=== PATIENT | female | born 1940 | race Caucasian/White ===

== ENCOUNTER → 2017-07-17 10:15 | Outpatient (CLI) | payer MEDICARE, SELFPAY ==
[2017-07-17 10:37] LABS: Basophils # 0.1 K/mm3 (0-0.2); Basophils % 0.6 % (0.1-2.0); Eosinophils # 0.4 K/mm3 (0.0-0.4); Eosinophils % 4.1 % (0.1-12.0); Hematocrit 40.8 % (37.0-47.0); Hemoglobin 13.2 g/dL (12.2-16.2); Lymphocytes # 2.1 K/mm3 (0.7-4.5); Lymphocytes % 24.1 K/mm3 (10-50); Mean Corpuscular HGB Conc 32.3 g/dL (31.8-35.4); Mean Corpuscular Hemoglobin 29.3 pg (27.0-31.2); Mean Corpuscular Volume 90.7 fl (81-99); Mean Platelet Volume 7.2 fl (7.4-10.4); Monocytes # 0.7 K/mm3 (0.1-1.0); Monocytes % 8.1 % (1.7-9.3); Neutrophils # 5.6 K/mm3 (1.8-7.8); Neutrophils % 63.1 % (37.0-80.0); Platelet Count 343 K/mm3 (142-424); Red Cell Distribution Width 14.2 % (11.5-17.5); White Blood Count 8.9 K/mm3 (4.8-10.8)
[2017-07-17 13:15] LABS: Alanine Aminotransferase 22 U/L (12-78); Albumin Level 3.9 gm/dL (3.4-5.0); Albumin/Globulin Ratio 1.4 (1.1-1.8); Alkaline Phosphatase 110 U/L (46-116); Anion Gap 9.3 mEq/L (5-15); Aspartate Amino Transferase 9 U/L (15-37); Bilirubin,Total 0.5 mg/dL (0.2-1.0); Blood Urea Nitrogen 16 mg/dL (7-18); Calcium 8.8 mg/dL (8.5-10.1); Carbon Dioxide 31 mmol/L (21.0-32.0); Chloride 101 mmol/L (98-107); Estimated Glomerular Filt Rate 69 ml/min (>60); GFR (African American) 84 ML/MIN (>60); Globulin 2.8 gm/dl (1.3-3.2); Glucose 80 mg/dL (74-106); Potassium 4.3 mmoL/L (3.5-5.1); Sodium 137 mmol/L (136-145); Total Protein,Serum 6.7 gm/dL (6.4-8.2)
--- NOTE | 2017-07-23 13:45 | SW/DCPLANNER ---
Follow up phone call 07/22/17 PINKY: Patient stated that she is stressed about rashes all over her back and arms. MD has diagnosed patient with a specific type of rash (patient could not recall name at time of phone call) and encouraged patient to take Benadryl and use Benadryl cream on rashes. Patient states that she does not have any needs for any further resources at this time. Date of visit: 07/22/17
== END ==
PROVIDERS: Visit Provider Internal Medicine
DX: C85.93 Non-Hodgkin lymphoma, unspecified, intra-abdominal lymph nodes (principal)
CPT/HCPCS: 36415; 80053; 85025

== ENCOUNTER → 2017-10-14 08:40 | Outpatient (CLI) | payer MEDICARE, SELFPAY ==
[2017-10-14 09:32] LABS: Basophils % 0.8 % (0.1-2.0); Eosinophils # 0.6 K/mm3 (0.0-0.4); Eosinophils % 11.8 % (0.1-12.0); Hematocrit 36.6 % (37.0-47.0); Hemoglobin 12.4 g/dL (12.2-16.2); Lymphocytes # 1.2 K/mm3 (0.7-4.5); Lymphocytes % 25.1 K/mm3 (10-50); Mean Corpuscular HGB Conc 33.8 g/dL (31.8-35.4); Mean Corpuscular Hemoglobin 30.1 pg (27.0-31.2); Mean Corpuscular Volume 88.9 fl (81-99); Mean Platelet Volume 7.3 fl (7.4-10.4); Monocytes # 0.5 K/mm3 (0.1-1.0); Monocytes % 9.4 % (1.7-9.3); Neutrophils # 2.6 K/mm3 (1.8-7.8); Neutrophils % 52.7 % (37.0-80.0); Platelet Count 283 K/mm3 (142-424); Red Blood Count 4.12 M/mm3 (4.20-5.40); Red Cell Distribution Width 14.1 % (11.5-17.5); White Blood Count 4.9 K/mm3 (4.8-10.8)
[2017-10-14 11:48] LABS: Alanine Aminotransferase 21 U/L (12-78); Albumin Level 3.5 gm/dL (3.4-5.0); Albumin/Globulin Ratio 1.4 (1.1-1.8); Alkaline Phosphatase 96 U/L (46-116); Anion Gap 12.6 mEq/L (5-15); Aspartate Amino Transferase 17 U/L (15-37); Bilirubin,Total 0.7 mg/dL (0.2-1.0); Blood Urea Nitrogen 11 mg/dL (7-18); Calcium 9.1 mg/dL (8.5-10.1); Carbon Dioxide 27 mmol/L (21.0-32.0); Chloride 103 mmol/L (98-107); Creatinine,Serum 0.72 mg/dL (0.55-1.02); Estimated Glomerular Filt Rate 78 ml/min (>60); GFR (African American) 95 ML/MIN (>60); Globulin 2.5 gm/dl (1.3-3.2); Glucose 89 mg/dL (74-106); Potassium 4.6 mmoL/L (3.5-5.1); Sodium 138 mmol/L (136-145)
== END ==
PROVIDERS: Visit Provider Internal Medicine
DX: Z79.899 Other long term (current) drug therapy (principal); D23.9 Other benign neoplasm of skin, unspecified; C85.93 Non-Hodgkin lymphoma, unspecified, intra-abdominal lymph nodes
CPT/HCPCS: 36415; 80053; 85025

== ENCOUNTER → 2017-10-15 08:40 | Outpatient (CLI) | payer MEDICARE, SELFPAY ==
--- NOTE | 2017-10-15 08:47 | CT_ITS ---
CT abdomen pelvis w con CLINICAL INDICATION: Follow-up lymphoma ITS.REASON: LYMPHOMA ORDERING PHYSICIAN: Chalino Potter MD PATIENT AGE: 77 years COMPARISON: 01/13/2017 TECHNIQUE: Axial images obtained with sagittal and coronal reformats. All CT scans at the facility use one or more dose reduction, viz: automated exposure control; ma/kV adjustment per patient size (including targeted exams where dose is matched to indication; i.e. head); or iterative reconstruction technique. PROCEDURE: Oral Contrast: Redicat IV Contrast: 75 mL's of Isovue-370 performed in conjunction with the chest CT. FINDINGS: 18 mm isodensity once again noted in the central aspect of the liver and may represent a hepatic cyst not significantly changed. No other liver lesions are evident. The spleen, adrenal glands, and pancreas are unremarkable. Eccentric isodensity projects off the anterior aspect of the left kidney at 14 mm consistent with a renal cyst unchanged. No retroperitoneal or intraperitoneal adenopathy is evident. No intestinal obstruction or free air. No pelvic mass, abnormal fluid collection, or focal inflammatory change. There is sigmoid diverticulosis. There is some mild stranding of the pericolic fat at the junction of the descending and sigmoid colon. Has the patient had any recent episodes of diverticulitis?. There is some mild thickening of the the upper rectum. This is nonspecific and could be due to nondistention or proctitis. Neoplasm not entirely excluded. Degenerative changes are present at L4-L5 and there is moderate wedging of L1 vertebral body which is unchanged. No acute bony anomalies evident. IMPRESSION: 1. No evidence of adenopathy that would indicate recurrent lymphoma. 2. Minimal stranding of the pericolic fat the left lower quadrant which may be seen with colitis or diverticulitis. 3. There is mild mucosal thickening of the upper rectum. This is nonspecific and may be related to nondistention, colitis, or neoplasm.
--- NOTE | 2017-10-15 08:47 | CT_ITS ---
CT chest w con HISTORY: Follow-up lymphoma ITS.REASON: LYMPHOMA ORDERING PHYSICIAN: Chalino Potter MD PATIENT AGE: 77 years COMPARISON: 01/13/2017 TECHNIQUE: Axial images obtained following the administration of 75 mL of Isovue 370 . Sagittal, and coronal reformatted images are also generated and reviewed. All CT scans at the facility use one or more dose reduction, viz: automated exposure control; ma/kV adjustment per patient size (including targeted exams where dose is matched to indication; i.e. head); or iterative reconstruction technique. FINDINGS: No mediastinal or hilar adenopathy. No axillary adenopathy. No evidence of aortic aneurysm or dissection or central pulmonary embolus. There is a new noncalcified nodule in the right upper lobe posteriorly which measures 8 x 6 mm. In the posterior segment of the right upper lobe. A calcified granuloma is present in the right middle lobe. No other new noncalcified nodules are evident. No pleural effusions or infiltrates. There are degenerative changes in the thoracic spine. No bony destructive process evident. IMPRESSION: 1. No evidence of mediastinal, hilar, or axillary adenopathy. 2. Interval development of a 8 x 6 mm noncalcified nodule in the posterior segment of the right upper lobe. This nodule is nonspecific and could be postinflammatory/infectious or secondary to neoplasm such as a primary or metastatic lesion. This lesion is not amenable to percutaneous biopsy. PET/CT or short-term follow-up chest CT may be of further value
== END ==
PROVIDERS: Family Provider Family Medicine; PCP Nurse Practitioner Family; Visit Provider Internal Medicine
DX: C85.93 Non-Hodgkin lymphoma, unspecified, intra-abdominal lymph nodes (principal)
CPT/HCPCS: 71260; 74177; Q9967

== ENCOUNTER → 2017-12-30 13:14 | Outpatient (CLI) | payer MEDICARE, SELFPAY ==
[2017-12-30 14:10] LABS: Basophils % 0.7 % (0.1-2.0); Eosinophils # 0.2 K/mm3 (0.0-0.4); Eosinophils % 4.6 % (0.1-12.0); Hematocrit 38.1 % (37.0-47.0); Hemoglobin 12.4 g/dL (12.2-16.2); Lymphocytes # 1.2 K/mm3 (0.7-4.5); Lymphocytes % 23.5 K/mm3 (10-50); Mean Corpuscular HGB Conc 32.6 g/dL (31.8-35.4); Mean Corpuscular Hemoglobin 29.6 pg (27.0-31.2); Mean Corpuscular Volume 90.8 fl (81-99); Mean Platelet Volume 7.1 fl (7.4-10.4); Monocytes # 0.5 K/mm3 (0.1-1.0); Monocytes % 9.5 % (1.7-9.3); Neutrophils # 3.2 K/mm3 (1.8-7.8); Neutrophils % 61.7 % (37.0-80.0); Platelet Count 281 K/mm3 (142-424); Red Blood Count 4.19 M/mm3 (4.20-5.40); Red Cell Distribution Width 15.9 % (11.5-17.5); White Blood Count 5.1 K/mm3 (4.8-10.8)
[2017-12-30 15:47] LABS: Alanine Aminotransferase 20 U/L (12-78); Albumin Level 3.6 gm/dL (3.4-5.0); Albumin/Globulin Ratio 1.4 (1.1-1.8); Alkaline Phosphatase 102 U/L (46-116); Anion Gap 10.7 mEq/L (5-15); Aspartate Amino Transferase 10 U/L (15-37); Bilirubin,Total 0.5 mg/dL (0.2-1.0); Blood Urea Nitrogen 8 mg/dL (7-18); Calcium 8.6 mg/dL (8.5-10.1); Carbon Dioxide 30 mmol/L (21.0-32.0); Chloride 105 mmol/L (98-107); Creatinine,Serum 0.73 mg/dL (0.55-1.02); Estimated Glomerular Filt Rate 77 ml/min (>60); GFR (African American) 93 ML/MIN (>60); Globulin 2.6 gm/dl (1.3-3.2); Glucose 100 mg/dL (74-106); Potassium 4.7 mmoL/L (3.5-5.1); Sodium 141 mmol/L (136-145); Total Protein,Serum 6.2 gm/dL (6.4-8.2)
== END ==
PROVIDERS: Visit Provider Physician Assistant
DX: Z79.899 Other long term (current) drug therapy (principal); D23.9 Other benign neoplasm of skin, unspecified
CPT/HCPCS: 36415; 80053; 85025

== ENCOUNTER → 2018-01-13 12:33 | Outpatient (CLI) | payer MEDICARE, SELFPAY ==
[2018-01-13 12:52] LABS: Basophils % 0.7 % (0.1-2.0); Eosinophils # 0.2 K/mm3 (0.0-0.4); Eosinophils % 4.4 % (0.1-12.0); Hematocrit 38.9 % (37.0-47.0); Hemoglobin 12.4 g/dL (12.2-16.2); Mean Corpuscular HGB Conc 31.9 g/dL (31.8-35.4); Mean Corpuscular Hemoglobin 29.2 pg (27.0-31.2); Mean Corpuscular Volume 91.5 fl (81-99); Mean Platelet Volume 6.7 fl (7.4-10.4); Monocytes # 0.4 K/mm3 (0.1-1.0); Monocytes % 7.7 % (1.7-9.3); Neutrophils # 3.2 K/mm3 (1.8-7.8); Neutrophils % 67.2 % (37.0-80.0); Platelet Count 269 K/mm3 (142-424); Red Blood Count 4.25 M/mm3 (4.20-5.40); White Blood Count 4.8 K/mm3 (4.8-10.8)
[2018-01-13 13:06] LABS: Alanine Aminotransferase 23 U/L (12-78); Albumin Level 3.8 gm/dL (3.4-5.0); Albumin/Globulin Ratio 1.3 (1.1-1.8); Alkaline Phosphatase 99 U/L (46-116); Anion Gap 8.6 mEq/L (5-15); Aspartate Amino Transferase 14 U/L (15-37); Bilirubin,Total 0.7 mg/dL (0.2-1.0); Blood Urea Nitrogen 9 mg/dL (7-18); Calcium 8.8 mg/dL (8.5-10.1); Carbon Dioxide 30 mmol/L (21.0-32.0); Chloride 100 mmol/L (98-107); Creatinine,Serum 0.86 mg/dL (0.55-1.02); Estimated Glomerular Filt Rate 64 ml/min (>60); GFR (African American) 77 ML/MIN (>60); Globulin 2.9 gm/dl (1.3-3.2); Glucose 99 mg/dL (74-106); Potassium 4.6 mmoL/L (3.5-5.1); Sodium 134 mmol/L (136-145); Total Protein,Serum 6.7 gm/dL (6.4-8.2)
--- NOTE | 2018-01-13 13:13 | CT_ITS ---
CT chest w con HISTORY: Follow-up lymphoma ITS.REASON: LYMPHOMA ORDERING PHYSICIAN: Chalino Potter MD PATIENT AGE: 77 years COMPARISON: 10/15/2017 TECHNIQUE: Axial images obtained following the administration of 75 mL of Isovue 370 . Sagittal, and coronal reformatted images are also generated and reviewed. All CT scans at the facility use one or more dose reduction, viz: automated exposure control, ma/kV adjustment per patient size (including targeted exams where dose is matched to indication, i.e. head), or iterative reconstruction technique. FINDINGS: No mediastinal or hilar adenopathy apparent. Coronary artery calcifications are present. Normal heart size. There is tortuosity of the descending thoracic aorta. No evidence of aortic aneurysm or dissection. No central pulmonary embolus. The previously noted nodular density in the right upper lobe posteriorly is no longer apparent and was likely due to inflammatory/infectious process. There is evidence of old granulomatous disease. A calcified granuloma is present in the right middle lobe. No central obstructing lesions. There is a 3 mm noncalcified nodule in the left upper lobe unchanged. No new nodules are evident. Upper abdominal images show prior cholecystectomy and a 2 cm isodensity in the central aspect of the liver consistent with a hepatic cyst. There are degenerative changes in the thoracic spine with mild chronic wedging of L1. IMPRESSION: 1. Interval resolution of right upper lobe pulmonary nodule consistent with resolved inflammatory or infectious nodule 2. Otherwise negative CT of the chest.
== END ==
PROVIDERS: Family Provider Family Medicine; PCP Nurse Practitioner Family; Visit Provider Internal Medicine
DX: C85.93 Non-Hodgkin lymphoma, unspecified, intra-abdominal lymph nodes (principal)
CPT/HCPCS: 36415; 71260; 80053; 85025; Q9967

== ENCOUNTER → 2018-04-02 08:50 | Outpatient (CLI) | payer MEDICARE, SELFPAY ==
--- NOTE | 2018-04-02 08:54 | MM_ITS ---
MM Dig screening mamm BI w/CAD ORDERING PHYSICIAN : Jack Uriarte MD PATIENT AGE: 78 years GENDER: Female COMPARISON: February 2017, January 2015, January 2016 INDICATION: ITS.REASON: Routine Screening Mammogram no hormones. No new complaints. Previous stereotactic biopsy right breast Patient has a history lymphoma, with a cancer involving bowel & Spleen Noncontributory family history TECHNIQUE: Standard CC and MLO images were obtained. R2 CAD reviewed. FINDINGS: Fairly dense beating fibroglandular beaded pattern bilaterally . Mammography is of somewhat decreased sensitivity in breast of this character. On the prior films are very helpful and supportive stable fibroglandular pattern with no suspicious or dominant new mass evident. No new findings of significant concern in either breast. RIGHT BREAST: No new findings of significant concern. Metallic marker from previous percutaneous biopsy lateral right breast but noted. LEFT BREAST:. No new findings. Follow-up in one year IMPRESSION: Moderately dense breast bilaterally, but no significant new findings either breast. No new areas of concern in either breast.-Bilateral follow-up in one year recommended. BI-RADS Category: 2 Benign Finding(s) RECOMMENDED FOLLOW-UP: 1YR 1 YEAR FOLLOW-UP (A letter has been sent to the patient regarding results of the study.)
== END ==
PROVIDERS: PCP Family Medicine; Visit Provider Nurse Practitioner Obstetrics & Gynecology
DX: Z12.31 Encounter for screening mammogram for malignant neoplasm of breast (principal)
CPT/HCPCS: 77067

== ENCOUNTER → 2018-04-12 12:30 | Outpatient (CLI) | payer MEDICARE, SELFPAY ==
[2018-04-12 13:25] LABS: Basophils # 0.1 K/mm3 (0-0.2); Eosinophils # 0.2 K/mm3 (0.0-0.4); Eosinophils % 4.4 % (0.1-12.0); Hematocrit 37.4 % (37.0-47.0); Hemoglobin 11.7 g/dL (12.2-16.2); Lymphocytes # 1.3 K/mm3 (0.7-4.5); Lymphocytes % 25.2 % (10-50); Mean Corpuscular HGB Conc 31.4 g/dL (31.8-35.4); Mean Corpuscular Hemoglobin 29.8 pg (27.0-31.2); Mean Corpuscular Volume 95.1 fl (81-99); Monocytes # 0.4 K/mm3 (0.1-1.0); Monocytes % 8.5 % (1.7-9.3); Neutrophils # 3.1 K/mm3 (1.8-7.8); Neutrophils % 60.9 % (37.0-80.0); Platelet Count 283 K/mm3 (142-424); Red Blood Count 3.93 M/mm3 (4.20-5.40); Red Cell Distribution Width 16.6 % (11.5-17.5); White Blood Count 5.1 K/mm3 (4.8-10.8)
[2018-04-12 15:01] LABS: Alanine Aminotransferase 28 U/L (12-78); Albumin Level 3.8 gm/dL (3.4-5.0); Albumin/Globulin Ratio 1.4 (1.1-1.8); Alkaline Phosphatase 97 U/L (46-116); Anion Gap 10.5 mEq/L (5-15); Aspartate Amino Transferase 16 U/L (15-37); Bilirubin,Total 0.4 mg/dL (0.2-1.0); Blood Urea Nitrogen 14 mg/dL (7-18); Carbon Dioxide 29 mmol/L (21.0-32.0); Chloride 102 mmol/L (98-107); Creatinine,Serum 0.78 mg/dL (0.55-1.02); Estimated Glomerular Filt Rate 71 ml/min (>60); GFR (African American) 86 ML/MIN (>60); Globulin 2.7 gm/dl (1.3-3.2); Glucose 100 mg/dL (74-106); Potassium 4.5 mmoL/L (3.5-5.1); Sodium 137 mmol/L (136-145); Total Protein,Serum 6.5 gm/dL (6.4-8.2)
== END ==
PROVIDERS: Visit Provider Physician Assistant
DX: D23.9 Other benign neoplasm of skin, unspecified (principal); Z79.899 Other long term (current) drug therapy
CPT/HCPCS: 36415; 80053; 85025

== ENCOUNTER → 2018-06-16 10:42 | Outpatient (CLI) | payer MEDICARE, SELFPAY ==
[2018-06-16 12:28] LABS: Alanine Aminotransferase 28 U/L (12-78); Albumin Level 3.8 gm/dL (3.4-5.0); Albumin/Globulin Ratio 1.5 (1.1-1.8); Alkaline Phosphatase 106 U/L (46-116); Anion Gap 12.3 mEq/L (5-15); Aspartate Amino Transferase 13 U/L (15-37); Bilirubin,Total 0.7 mg/dL (0.2-1.0); Blood Urea Nitrogen 12 mg/dL (7-18); Calcium 8.9 mg/dL (8.5-10.1); Carbon Dioxide 27 mmol/L (21.0-32.0); Chloride 97 mmol/L (98-107); Creatinine,Serum 0.82 mg/dL (0.55-1.02); Estimated Glomerular Filt Rate 67 ml/min (>60); GFR (African American) 81 ML/MIN (>60); Globulin 2.6 gm/dl (1.3-3.2); Glucose 101 mg/dL (74-106); Potassium 4.3 mmoL/L (3.5-5.1); Sodium 132 mmol/L (136-145); Total Protein,Serum 6.4 gm/dL (6.4-8.2)
[2018-06-16 12:50] LABS: Basophils # 0.1 K/mm3 (0-0.2); Basophils % 1.2 % (0.1-2.0); Eosinophils # 0.2 K/mm3 (0.0-0.4); Eosinophils % 3.9 % (0.1-12.0); Hematocrit 39.2 % (37.0-47.0); Lymphocytes # 1.1 K/mm3 (0.7-4.5); Lymphocytes % 23.3 % (10-50); Mean Corpuscular HGB Conc 33.2 g/dL (31.8-35.4); Mean Corpuscular Hemoglobin 31.2 pg (27.0-31.2); Mean Corpuscular Volume 94.1 fl (81-99); Mean Platelet Volume 7.2 fl (7.4-10.4); Monocytes # 0.6 K/mm3 (0.1-1.0); Monocytes % 12.4 % (1.7-9.3); Neutrophils # 2.8 K/mm3 (1.8-7.8); Neutrophils % 59.2 % (37.0-80.0); Platelet Count 311 K/mm3 (142-424); Red Blood Count 4.17 M/mm3 (4.20-5.40); Red Cell Distribution Width 15.8 % (11.5-17.5); White Blood Count 4.7 K/mm3 (4.8-10.8)
== END ==
PROVIDERS: Visit Provider Physician Assistant
DX: D23.9 Other benign neoplasm of skin, unspecified (principal); Z79.899 Other long term (current) drug therapy
CPT/HCPCS: 36415; 80053; 85025

== ENCOUNTER → 2018-11-01 08:11 | Outpatient (CLI) | payer MEDICARE, SELFPAY ==
[2018-11-01 08:22] LABS: Basophils # 0.1 K/mm3 (0-0.2); Basophils % 0.9 % (0.1-2.0); Eosinophils # 0.3 K/mm3 (0.0-0.4); Eosinophils % 4.7 % (0.1-12.0); Hematocrit 38.5 % (37.0-47.0); Hemoglobin 12.1 g/dL (12.2-16.2); Lymphocytes # 1.4 K/mm3 (0.7-4.5); Lymphocytes % 24.2 % (10-50); Mean Corpuscular HGB Conc 31.3 g/dL (31.8-35.4); Mean Corpuscular Hemoglobin 28.5 pg (27.0-31.2); Mean Corpuscular Volume 90.8 fl (81-99); Mean Platelet Volume 6.8 fl (7.4-10.4); Monocytes # 0.6 K/mm3 (0.1-1.0); Monocytes % 10.2 % (1.7-9.3); Neutrophils # 3.5 K/mm3 (1.8-7.8); Platelet Count 299 K/mm3 (142-424); Red Blood Count 4.24 M/mm3 (4.20-5.40); Red Cell Distribution Width 15.7 % (11.5-17.5); White Blood Count 5.8 K/mm3 (4.8-10.8)
[2018-11-01 08:52] LABS: Alanine Aminotransferase 17 U/L (12-78); Albumin Level 3.5 gm/dL (3.4-5.0); Albumin/Globulin Ratio 1.2 (1.1-1.8); Alkaline Phosphatase 107 U/L (46-116); Anion Gap 11.4 mEq/L (5-15); Aspartate Amino Transferase 18 U/L (15-37); Bilirubin,Total 0.5 mg/dL (0.2-1.0); Blood Urea Nitrogen 11 mg/dL (7-18); Calcium 8.6 mg/dL (8.5-10.1); Carbon Dioxide 27 mmol/L (21.0-32.0); Chloride 101 mmol/L (98-107); Creatinine,Serum 0.72 mg/dL (0.55-1.02); Estimated Glomerular Filt Rate 78 ml/min (>60); GFR (African American) 94 ML/MIN (>60); Glucose 92 mg/dL (74-106); Potassium 4.4 mmoL/L (3.5-5.1); Sodium 135 mmol/L (136-145); Total Protein,Serum 6.5 gm/dL (6.4-8.2)
--- NOTE | 2018-11-01 09:04 | CT_ITS ---
CT abdomen pelvis w con CLINICAL INDICATION: Follow-up lymphoma ITS.REASON: NON HODGKIN LYMPHOMA ORDERING PHYSICIAN: Marcie Gorman APRN PATIENT AGE: 78 years COMPARISON: None TECHNIQUE: Axial images obtained with sagittal and coronal reformats. All CT scans at the facility use one or more dose reduction, viz: automated exposure control, ma/kV adjustment per patient size (including targeted exams where dose is matched to indication, i.e. head), or iterative reconstruction technique. PROCEDURE: Oral Contrast: Redicat IV Contrast: 75 mL of Optiray 350 performed in conjunction with the chest CT. FINDINGS: Hepatic cyst is once again noted in the central aspect of the liver. No new liver lesions are evident. There has been a prior cholecystectomy. The spleen, adrenal glands, pancreas, and kidneys have an unremarkable appearance. No intestinal obstruction or free air. There is a small umbilical hernia which contains fat. No evidence of appendicitis. There are few small nodes inferior to the cecum nonspecific. No adenopathy of the abdomen or retroperitoneum. There is diverticulosis of the descending and sigmoid colon with no evidence of diverticulitis. Thickening is once again noted involving the rectosigmoid region not significant changed. There is some minimal haziness of the pelvic fat in the lower pelvis posteriorly nonspecific. No acute bony findings. There is wedging of L1 unchanged and there is grade 1 anterolisthesis of L4 on L5 with severe degenerative disc disease unchanged. IMPRESSION: 1. Stable CT appearance of the abdomen and pelvis. 2. Persistent thickening of the rectosigmoid junction of the colon 3. Colonic diverticulosis. There is a mild amount of retained colonic feces.
--- NOTE | 2018-11-01 09:04 | CT_ITS ---
CT chest w con HISTORY: Follow-up lymphoma ITS.REASON: NON HODGKIN LYMPHOMA ORDERING PHYSICIAN: Marcie Gorman APRN PATIENT AGE: 78 years COMPARISON: 01/13/2018 TECHNIQUE: Axial images obtained following the administration of 75 mL of Optiray 350 . Sagittal, and coronal reformatted images are also generated and reviewed. All CT scans at the facility use one or more dose reduction, viz: automated exposure control, ma/kV adjustment per patient size (including targeted exams where dose is matched to indication, i.e. head), or iterative reconstruction technique. FINDINGS: No mediastinal or hilar adenopathy. Normal heart size. No evidence of pericardial effusion. There are some dependent changes along the fissure on the left superiorly and in the posterior aspect of the lower lobes. Calcified nodule is present in the right upper lobe medially. There are some atelectatic changes in the left lower lobe anteriorly. No suspicious nodules. No effusions or lobar consolidation. IMPRESSION: No acute finding. Scattered atelectatic changes are noted. No adenopathy or recurrent pulmonary nodule.
== END ==
PROVIDERS: Visit Provider Nurse Practitioner
DX: C85.90 Non-Hodgkin lymphoma, unspecified, unspecified site (principal)
CPT/HCPCS: 36415; 71260; 74177; 80053; 85025; Q9967

== ENCOUNTER → 2018-11-17 09:42 | Outpatient (CLI) | payer MEDICARE, SELFPAY ==
[2018-11-17 10:10] LABS: Basophils % 0.9 % (0.1-2.0); Eosinophils # 0.3 K/mm3 (0.0-0.4); Eosinophils % 5.6 % (0.1-12.0); Hematocrit 39.2 % (37.0-47.0); Hemoglobin 12.1 g/dL (12.2-16.2); Lymphocytes # 0.9 K/mm3 (0.7-4.5); Lymphocytes % 19.1 % (10-50); Mean Corpuscular Hemoglobin 29.4 pg (27.0-31.2); Mean Corpuscular Volume 94.9 fl (81-99); Mean Platelet Volume 8.4 fl (7.4-10.4); Monocytes # 0.4 K/mm3 (0.1-1.0); Monocytes % 9.6 % (1.7-9.3); Neutrophils # 2.9 K/mm3 (1.8-7.8); Neutrophils % 64.7 % (37.0-80.0); Platelet Count 308 K/mm3 (142-424); Red Blood Count 4.13 M/mm3 (4.20-5.40); Red Cell Distribution Width 16.4 % (11.5-17.5); White Blood Count 4.5 K/mm3 (4.8-10.8)
[2018-11-17 12:08] LABS: Alanine Aminotransferase 29 U/L (12-78); Albumin Level 3.6 gm/dL (3.4-5.0); Albumin/Globulin Ratio 1.4 (1.1-1.8); Alkaline Phosphatase 105 U/L (46-116); Anion Gap 13.8 mEq/L (5-15); Aspartate Amino Transferase 20 U/L (15-37); Bilirubin,Total 0.5 mg/dL (0.2-1.0); Blood Urea Nitrogen 9 mg/dL (7-18); Calcium 8.5 mg/dL (8.5-10.1); Carbon Dioxide 28 mmol/L (21.0-32.0); Chloride 101 mmol/L (98-107); Creatinine,Serum 0.69 mg/dL (0.55-1.02); Estimated Glomerular Filt Rate 82 ml/min (>60); GFR (African American) 99 ML/MIN (>60); Globulin 2.5 gm/dl (1.3-3.2); Glucose 99 mg/dL (74-106); Potassium 4.8 mmoL/L (3.5-5.1); Sodium 138 mmol/L (136-145); Total Protein,Serum 6.1 gm/dL (6.4-8.2)
[2018-11-17 12:29] LABS: Ferritin 31 ng/mL (8-388)
[2018-11-18 08:25] LABS: Iron 71 ug/dL (27-139); UIBC 265 ug/dL (118-369)
[2018-11-18 19:20] LABS: Iron Saturation 21 % (15-55)
[2018-11-18 21:43] LABS: Lactate Dehydrogenase 223 U/L (82-234)
== END ==
PROVIDERS: Visit Provider Nurse Practitioner
DX: D64.9 Anemia, unspecified (principal); C85.90 Non-Hodgkin lymphoma, unspecified, unspecified site
CPT/HCPCS: 36415; 80053; 82728; 83540; 83550; 83615; 85025

== ENCOUNTER 2018-11-17 10:00 | Outpatient (RCR) | payer MEDICARE, SELFPAY | END 2018-11-17 10:05 | disposition home or self-care (01) | LOC: PT 10:00 | PROVIDERS: Visit Provider Nurse Practitioner | DX: G62.9 Polyneuropathy, unspecified (principal); T45.1X5A Adverse effect of antineoplastic and immunosuppressive drugs, initial encounter | CPT/HCPCS: 97010; 97018; 97110; 97140; 97163 ==

== ENCOUNTER → 2019-03-14 12:02 | Outpatient (CLI) | payer MEDICARE, SELFPAY ==
[2019-03-14 12:27] LABS: Basophils # 0.1 K/mm3 (0-0.2); Basophils % 1.1 % (0.1-2.0); Eosinophils # 0.2 K/mm3 (0.0-0.4); Eosinophils % 4.3 % (0.1-12.0); Hematocrit 37.8 % (37.0-47.0); Hemoglobin 12.2 g/dL (12.2-16.2); Lymphocytes # 1.3 K/mm3 (0.7-4.5); Lymphocytes % 22.4 % (10-50); Mean Corpuscular HGB Conc 32.4 g/dL (31.8-35.4); Mean Corpuscular Hemoglobin 29.9 pg (27.0-31.2); Mean Corpuscular Volume 92.1 fl (81-99); Mean Platelet Volume 8.4 fl (7.4-10.4); Monocytes # 0.5 K/mm3 (0.1-1.0); Monocytes % 8.3 % (1.7-9.3); Neutrophils # 3.6 K/mm3 (1.8-7.8); Platelet Count 310 K/mm3 (142-424); Red Cell Distribution Width 15.3 % (11.5-17.5); White Blood Count 5.6 K/mm3 (4.8-10.8)
[2019-03-14 21:15] LABS: Alanine Aminotransferase 15 U/L (12-78); Albumin Level 3.7 gm/dL (3.4-5.0); Albumin/Globulin Ratio 1.4 (1.1-1.8); Alkaline Phosphatase 102 U/L (46-116); Anion Gap 4.6 mEq/L (5-15); Aspartate Amino Transferase 14 U/L (15-37); Bilirubin,Total 0.6 mg/dL (0.2-1.0); Blood Urea Nitrogen 9 mg/dL (7-18); Calcium 9.1 mg/dL (8.5-10.1); Carbon Dioxide 26 mmol/L (21.0-32.0); Chloride 107 mmol/L (98-107); Creatinine,Serum 0.68 mg/dL (0.55-1.02); Estimated Glomerular Filt Rate 83 ml/min (>60); GFR (African American) 100 ML/MIN (>60); Globulin 2.7 gm/dl (1.3-3.2); Glucose 84 mg/dL (74-106); Potassium 4.6 mmoL/L (3.5-5.1); Sodium 133 mmol/L (136-145); Total Protein,Serum 6.4 gm/dL (6.4-8.2)
== END ==
PROVIDERS: Visit Provider Physician Assistant
DX: D23.9 Other benign neoplasm of skin, unspecified (principal); Z79.899 Other long term (current) drug therapy
CPT/HCPCS: 36415; 80053; 85025

== ENCOUNTER → 2019-06-21 13:17 | Outpatient (CLI) | payer MEDICARE, SELFPAY ==
[2019-06-21 13:40] LABS: Basophils # 0.1 K/mm3 (0-0.2); Eosinophils # 0.3 K/mm3 (0.0-0.4); Hematocrit 37.8 % (37.0-47.0); Hemoglobin 12.1 g/dL (12.2-16.2); Lymphocytes # 1.1 K/mm3 (0.7-4.5); Lymphocytes % 20.8 % (10-50); Mean Corpuscular HGB Conc 32.1 g/dL (31.8-35.4); Mean Corpuscular Hemoglobin 29.7 pg (27.0-31.2); Mean Corpuscular Volume 92.7 fl (81-99); Mean Platelet Volume 8.1 fl (7.4-10.4); Monocytes # 0.4 K/mm3 (0.1-1.0); Monocytes % 8.2 % (1.7-9.3); Neutrophils # 3.5 K/mm3 (1.8-7.8); Neutrophils % 64.9 % (37.0-80.0); Platelet Count 303 K/mm3 (142-424); Red Blood Count 4.08 M/mm3 (4.20-5.40); Red Cell Distribution Width 15.6 % (11.5-17.5); White Blood Count 5.4 K/mm3 (4.8-10.8)
[2019-06-21 16:20] LABS: Alanine Aminotransferase 15 U/L (12-78); Albumin Level 3.7 gm/dL (3.4-5.0); Albumin/Globulin Ratio 1.4 (1.1-1.8); Alkaline Phosphatase 126 U/L (46-116); Anion Gap 12.2 mEq/L (5-15); Aspartate Amino Transferase 16 U/L (15-37); Bilirubin,Total 0.5 mg/dL (0.2-1.0); Blood Urea Nitrogen 10 mg/dL (7-18); Calcium 8.5 mg/dL (8.5-10.1); Carbon Dioxide 29 mmol/L (21.0-32.0); Chloride 102 mmol/L (98-107); Creatinine,Serum 0.81 mg/dL (0.55-1.02); Estimated Glomerular Filt Rate 68 ml/min (>60); GFR (African American) 82 ML/MIN (>60); Globulin 2.6 gm/dl (1.3-3.2); Glucose 101 mg/dL (74-106); Potassium 4.2 mmoL/L (3.5-5.1); Sodium 139 mmol/L (136-145); Total Protein,Serum 6.3 gm/dL (6.4-8.2)
== END ==
PROVIDERS: PCP Family Medicine; Visit Provider Physician Assistant
DX: D23.9 Other benign neoplasm of skin, unspecified (principal); Z79.899 Other long term (current) drug therapy
CPT/HCPCS: 36415; 80053; 85025

== ENCOUNTER → 2019-10-26 11:52 | Outpatient (CLI) | payer MEDICARE, SELFPAY ==
[2019-10-26 12:24] LABS: Basophils # 0.1 K/mm3 (0-0.2); Basophils % 1.3 % (0.1-2.0); Eosinophils # 0.2 K/mm3 (0.0-0.4); Eosinophils % 5.5 % (0.1-12.0); Hematocrit 37.9 % (37.0-47.0); Hemoglobin 12.6 g/dL (12.2-16.2); Lymphocytes % 24.7 % (10-50); Mean Corpuscular HGB Conc 33.2 g/dL (31.8-35.4); Mean Corpuscular Hemoglobin 30.6 pg (27.0-31.2); Mean Corpuscular Volume 92.1 fl (81-99); Mean Platelet Volume 7.1 fl (7.4-10.4); Monocytes # 0.4 K/mm3 (0.1-1.0); Monocytes % 10.2 % (1.7-9.3); Neutrophils # 2.5 K/mm3 (1.8-7.8); Neutrophils % 58.4 % (37.0-80.0); Platelet Count 280 K/mm3 (142-424); Red Blood Count 4.11 M/mm3 (4.20-5.40); Red Cell Distribution Width 15.9 % (11.5-17.5); White Blood Count 4.2 K/mm3 (4.8-10.8)
[2019-10-26 13:34] LABS: Chloride 100 mmol/L (98-107); Potassium 4.2 mmoL/L (3.5-5.1); Sodium 136 mmol/L (136-145)
[2019-10-26 13:37] LABS: Alanine Aminotransferase 14 U/L (12-78); Albumin/Globulin Ratio 1.6 (1.1-1.8); Alkaline Phosphatase 106 U/L (38-126); Anion Gap 12.2 mEq/L (5-15); Aspartate Amino Transferase 24 U/L (14-36); Bilirubin,Total 0.8 mg/dl (0.2-1.3); Blood Urea Nitrogen 13 mg/dl (7-17); Calcium 8.7 mg/dl (8.4-10.2); Carbon Dioxide 28 mmol/L (22.0-30.0); Estimated Glomerular Filt Rate 69 ml/min (>60); GFR (African American) 83 ML/MIN (>60); Globulin 2.5 g/dL (1.3-3.2); Glucose 112 mg/dl (74-100); Lactate Dehydrogenase 219 U/L (313-618); Total Protein,Serum 6.5 g/dl (6.3-8.2)
== END ==
PROVIDERS: Visit Provider Internal Medicine Medical Oncology
DX: Z85.72 Personal history of non-Hodgkin lymphomas (principal)
CPT/HCPCS: 36415; 80053; 83615; 85025

== ENCOUNTER → 2019-10-27 08:48 | Outpatient (CLI) | payer MEDICARE, SELFPAY ==
--- NOTE | 2019-10-27 08:52 | CT_ITS ---
PROCEDURE: CT CHEST W CON CLINCAL INDICATION: HX LYMPHOMA Follow-up lymphoma COMPARISON: CHESTW CT chest w con from 11/01/2018 CT ABDOMEN PELVIS W CON from 10/27/2019 TECHNIQUE: IV Contrast: 75ml Optiray 350 Axial images obtained with sagittal and coronal reformats. All CT scans at the facility use one or more dose reduction, viz: automated exposure control, ma/kV adjustment per patient size (including targeted exams where dose is matched to indication, i.e. head), or iterative reconstruction technique. FINDINGS: HEART AND MEDIASTINAL STRUCTURES: No mediastinal or hilar mass or adenopathy. Coronary artery calcifications are present. No evidence of aortic aneurysm or dissection or central pulmonary embolus. LUNGS AND PLEURAL SPACES: There is calcified granuloma in the right middle lobe. There are mild atelectatic or fibrotic changes in the left lower lobe. No suspicious pulmonary nodule. No effusion or infiltrate. BONY STRUCTURES: Degenerative changes thoracic spine UPPER ABDOMEN: Please see abdomen report ADDITIONAL FINDINGS: No other significant abnormalities. IMPRESSION: Overall stable CT appearance of the chest. No evidence of recurrence lymphoma Dictated by: Santi Calvin MD 10/28/2019 10:03 Electronically signed by Santi Calvin MD in [place] 10/28/2019 10:03
--- NOTE | 2019-10-27 08:52 | CT_ITS ---
PROCEDURE: CT ABDOMEN PELVIS W CON CLINICAL INDICATION: HX LYMPHOMA Follow-up lymphoma COMPARISON: ABDPELW CT abdomen pelvis w con from 11/01/2018 TECHNIQUE: IV Contrast: 75ML OPTIRAY 350 Oral Contrast 20ml Gastroview Axial images obtained with sagittal and coronal reformats. All CT scans at the facility use one or more dose reduction, viz: automated exposure control, ma/kV adjustment per patient size (including targeted exams where dose is matched to indication, i.e. head), or iterative reconstruction technique. FINDINGS: LOWER THORAX: No acute finding ABDOMEN & PELVIS: There are post cholecystectomy changes. There is a 2.4 cm cyst within the central aspect of the liver. The liver has an otherwise unremarkable appearance. The spleen, adrenal glands, and pancreas have an unremarkable appearance. No renal or ureteral calculi. There is a 1 cm left renal cyst. There is mild prominence of the renal pelves and right ureter. No definite ureteral calculus however is evident. This had a similar appearance on the previous exam. No evidence of retroperitoneal or abdominal adenopathy. No evidence of appendicitis or diverticulitis. There is diverticulosis of the descending and sigmoid colon. No pelvic mass or abnormal fluid collection. Previously noted thickening of the rectosigmoid junction is not demonstrated on today's exam There is degenerative disc disease with grade 1 spondylolisthesis of L4 on L5. Chronic wedge compression changes are present at L1. There is a small umbilical hernia containing fat. IMPRESSION: Overall stable CT appearance of the abdomen and pelvis with no evidence of recurrence lymphoma Dictated by: Santi Calvin MD 10/28/2019 10:10 Electronically signed by Santi Calvin MD in [place] 10/28/2019 10:10
== END ==
PROVIDERS: PCP Family Medicine; Visit Provider Internal Medicine Medical Oncology
DX: Z85.72 Personal history of non-Hodgkin lymphomas (principal)
CPT/HCPCS: 71260; 74177; Q9967

== ENCOUNTER → 2019-12-22 09:17 | Outpatient (CLI) | payer MEDICARE, SELFPAY ==
[2019-12-22 10:05] LABS: Chloride 99 mmol/L (98-107); Potassium 4.6 mmoL/L (3.5-5.1); Sodium 135 mmol/L (136-145)
[2019-12-22 10:07] LABS: Alanine Aminotransferase 13 U/L (12-78); Aspartate Amino Transferase 24 U/L (14-36); Blood Urea Nitrogen 12 mg/dl (7-17); Estimated Glomerular Filt Rate 96 ml/min (>60); GFR (African American) 116 ML/MIN (>60)
[2019-12-22 10:08] LABS: Albumin Level 3.9 g/dl (3.5-5.0); Albumin/Globulin Ratio 1.6 (1.1-1.8); Alkaline Phosphatase 96 U/L (38-126); Anion Gap 11.6 mEq/L (5-15); Bilirubin,Total 0.8 mg/dl (0.2-1.3); Calcium 9.2 mg/dl (8.4-10.2); Carbon Dioxide 29 mmol/L (22.0-30.0); Globulin 2.5 g/dL (1.3-3.2); Glucose 98 mg/dl (74-100); Total Protein,Serum 6.4 g/dl (6.3-8.2)
[2019-12-22 10:18] LABS: Basophils # 0.1 K/mm3 (0-0.2); Basophils % 1.1 % (0.1-2.0); Eosinophils # 0.2 K/mm3 (0.0-0.4); Eosinophils % 5.1 % (0.1-12.0); Hematocrit 37.4 % (37.0-47.0); Hemoglobin 12.6 g/dL (12.2-16.2); Lymphocytes # 1.1 K/mm3 (0.7-4.5); Mean Corpuscular HGB Conc 33.6 g/dL (31.8-35.4); Mean Corpuscular Volume 92.4 fl (81-99); Mean Platelet Volume 7.2 fl (7.4-10.4); Monocytes # 0.4 K/mm3 (0.1-1.0); Monocytes % 8.4 % (1.7-9.3); Neutrophils # 2.9 K/mm3 (1.8-7.8); Neutrophils % 61.5 % (37.0-80.0); Platelet Count 263 K/mm3 (142-424); Red Blood Count 4.05 M/mm3 (4.20-5.40); Red Cell Distribution Width 15.2 % (11.5-17.5); White Blood Count 4.7 K/mm3 (4.8-10.8)
== END ==
PROVIDERS: Visit Provider Physician Assistant
DX: L30.9 Dermatitis, unspecified (principal); Z79.899 Other long term (current) drug therapy
CPT/HCPCS: 36415; 80053; 85025

== ENCOUNTER → 2020-02-20 08:38 | Outpatient (CLI) | payer MEDICARE, SELFPAY ==
[2020-02-20 09:28] LABS: Chloride 99 mmol/L (98-107)
[2020-02-20 09:29] LABS: Potassium 4.4 mmoL/L (3.5-5.1); Sodium 135 mmol/L (136-145)
[2020-02-20 09:31] LABS: Alanine Aminotransferase 15 U/L (12-78); Anion Gap 9.4 mEq/L (5-15); Aspartate Amino Transferase 24 U/L (14-36); Blood Urea Nitrogen 8 mg/dl (7-17); Carbon Dioxide 31 mmol/L (22.0-30.0); Estimated Glomerular Filt Rate 80 ml/min (>60); GFR (African American) 97 ML/MIN (>60)
[2020-02-20 09:32] LABS: Albumin/Globulin Ratio 1.7 (1.1-1.8); Alkaline Phosphatase 99 U/L (38-126); Bilirubin,Total 0.6 mg/dl (0.2-1.3); Calcium 9.1 mg/dl (8.4-10.2); Globulin 2.4 g/dL (1.3-3.2); Glucose 114 mg/dl (74-100); Total Protein,Serum 6.4 g/dl (6.3-8.2)
[2020-02-20 11:13] LABS: Basophils # 0.1 K/mm3 (0-0.2); Basophils % 1.2 % (0.1-2.0); Eosinophils # 0.3 K/mm3 (0.0-0.4); Eosinophils % 6.4 % (0.1-12.0); Hematocrit 41.7 % (37.0-47.0); Hemoglobin 13.2 g/dL (12.2-16.2); Lymphocytes # 1.2 K/mm3 (0.7-4.5); Lymphocytes % 27.7 % (10-50); Mean Corpuscular HGB Conc 31.7 g/dL (31.8-35.4); Mean Corpuscular Hemoglobin 30.3 pg (27.0-31.2); Mean Corpuscular Volume 95.7 fl (81-99); Mean Platelet Volume 7.5 fl (7.4-10.4); Monocytes # 0.5 K/mm3 (0.1-1.0); Monocytes % 12.1 % (1.7-9.3); Neutrophils # 2.4 K/mm3 (1.8-7.8); Neutrophils % 52.6 % (37.0-80.0); Platelet Count 283 K/mm3 (142-424); Red Blood Count 4.35 M/mm3 (4.20-5.40); Red Cell Distribution Width 15.3 % (11.5-17.5); White Blood Count 4.5 K/mm3 (4.8-10.8)
== END ==
PROVIDERS: Visit Provider Physician Assistant
DX: L30.9 Dermatitis, unspecified (principal); Z79.899 Other long term (current) drug therapy
CPT/HCPCS: 36415; 80053; 85025

== ENCOUNTER → 2020-03-08 10:20 | Outpatient (CLI) | payer MEDICARE, SELFPAY ==
--- NOTE | 2020-03-08 10:20 | MM_ITS ---
PROCEDURE: MM DIG SCREENING MAMM BI W/CAD Referring Doctor: Jack Uriarte Patient Age:80Y CLINICAL INDICATION: screening xmg no hormones no new complaints previous stereotactic biopsy right breast. Patient give history of cancer with stated history of colon cancer along with lymphoma of which a a may have involved displaying COMPARISON: [facility] DIGITAL MAMM-SCREEN BILATERAL from 11/13/2011 [facility] DIG MAMM-SCREEN VENUS from 01/07/2013 [facility] DIG MAMM-SCREEN VENUS from 01/11/2014 [facility] DIG MAMM-SCREEN VENUS from 01/25/2015 [facility] DIG MAMM-SCREEN VENUS from 02/18/2016 [facility] DIG MAMM-SCREEN VENUS W/CAD from 02/23/2017 [facility] MM Dig screening mamm BI w/CAD from 04/02/2018 TECHNIQUE: Standard CC and MLO images were obtained. R2 CAD reviewed. Bilateral digital breast tomosynthesis included. FINDINGS: Moderately dense heterogeneous breast pattern with breast density most pronounced at the superior right and left breast the. Prior films are very helpful in supporting stable pattern.. The breast is of greater density in breast this slightly did nodular background pattern is similar to multiple previous studies, no new dominant nor suspicious mass no suspicious calcifications I would note mammography is of decreased sensitivity in these areas of denser heterogeneous breast pattern-of ultrasound can be useful complement/augment to mammography screening. Ultrasound is particularly helpful and areas if any palpable area arises.-At this point overtly suggest a follow-up bilateral mammogram in 1 year for ongoing evaluation the Right breast. No new areas of significant concern the the the Longstanding small metallic marker lateral right breast from previous stereotactic biopsy, lateral breast Small nodular density central lucency most likely intramammary node located at inferior breast. Is a seen on mammograms dating back to at least 2015 Left breast. No new areas of significant concern. Area of mild asymmetry superior left breast again noted similar to multiple previous studies dating back to 2013. It appears to dissipate on the tomosynthesis images IMPRESSION: No new areas of significant concern No suspicious new areas Fairly dense, heterogeneous breast pattern most evident towards the superior breast bilaterally.-mammography of decreased sensitivity in these areas of denser breast tissue.. Note above Bilateral follow-up mammogram 1 year recommended.. BI-RAD Category: 2 Benign Finding(s) FOLLOW-UP: 1YR 1 Year Follow-up (A letter has been sent to the patient regarding results of the study.) Dictated by: Zander Saha MD 03/09/2020 21:01 Zander Saha MD in [place] 03/09/2020 21:01
== END ==
PROVIDERS: PCP Family Medicine; Visit Provider Nurse Practitioner Obstetrics & Gynecology
DX: Z12.31 Encounter for screening mammogram for malignant neoplasm of breast (principal)
CPT/HCPCS: 77063; 77067

== ENCOUNTER → 2020-07-24 13:12 | Outpatient (POV) | payer MEDICARE, SELFPAY ==
[2020-07-24 14:50] LABS: Basophils # 0.1 K/mm3 (0-0.2); Basophils % 0.9 % (0.1-2.0); Eosinophils # 0.3 K/mm3 (0.0-0.4); Eosinophils % 6.1 % (0.1-12.0); Hematocrit 39.7 % (37.0-47.0); Hemoglobin 12.6 g/dL (12.2-16.2); Lymphocytes # 1.3 K/mm3 (0.7-4.5); Lymphocytes % 23.3 % (10-50); Mean Corpuscular HGB Conc 31.7 g/dL (31.8-35.4); Mean Corpuscular Hemoglobin 29.5 pg (27.0-31.2); Mean Platelet Volume 7.7 fl (7.4-10.4); Monocytes # 0.5 K/mm3 (0.1-1.0); Monocytes % 9.1 % (1.7-9.3); Neutrophils # 3.3 K/mm3 (1.8-7.8); Neutrophils % 60.6 % (37.0-80.0); Platelet Count 286 K/mm3 (142-424); Red Blood Count 4.26 M/mm3 (4.20-5.40); Red Cell Distribution Width 15.3 % (11.5-17.5); White Blood Count 5.4 K/mm3 (4.8-10.8)
[2020-07-24 15:44] LABS: Chloride 102 mmol/L (98-107); Potassium 4.2 mmoL/L (3.5-5.1); Sodium 137 mmol/L (136-145)
[2020-07-24 15:47] LABS: Alanine Aminotransferase 15 U/L (12-78); Albumin Level 4.2 g/dl (3.5-5.0); Albumin/Globulin Ratio 1.6 (1.1-1.8); Alkaline Phosphatase 112 U/L (38-126); Anion Gap 10.2 mEq/L (5-15); Aspartate Amino Transferase 26 U/L (14-36); Bilirubin,Total 0.7 mg/dl (0.2-1.3); Blood Urea Nitrogen 12 mg/dl (7-17); Carbon Dioxide 29 mmol/L (22.0-30.0); Estimated Glomerular Filt Rate 69 ml/min (>60); GFR (African American) 83 ML/MIN (>60); Globulin 2.6 g/dL (1.3-3.2); Total Protein,Serum 6.8 g/dl (6.3-8.2)
[2020-07-24 15:48] LABS: Calcium 9.2 mg/dl (8.4-10.2); Glucose 121 mg/dl (74-100)
== END ==
PROVIDERS: Visit Provider Dermatology
DX: I10 Essential (primary) hypertension (principal); E78.5 Hyperlipidemia, unspecified
CPT/HCPCS: 36415; 80053; 85025

== ENCOUNTER → 2020-11-15 10:03 | Outpatient (CLI) | payer MEDICARE, SELFPAY ==
[2020-11-15 10:26] LABS: Basophils % 0.6 % (0.1-2.0); Eosinophils # 0.4 K/mm3 (0.0-0.4); Eosinophils % 5.4 % (0.1-12.0); Hematocrit 40.3 % (37.0-47.0); Hemoglobin 12.7 g/dL (12.2-16.2); Lymphocytes # 1.4 K/mm3 (0.7-4.5); Lymphocytes % 21.4 % (10-50); Mean Corpuscular HGB Conc 31.4 g/dL (31.8-35.4); Mean Corpuscular Hemoglobin 29.5 pg (27.0-31.2); Mean Corpuscular Volume 93.8 fl (81-99); Monocytes # 0.5 K/mm3 (0.1-1.0); Monocytes % 7.8 % (1.7-9.3); Neutrophils # 4.2 K/mm3 (1.8-7.8); Neutrophils % 64.7 % (37.0-80.0); Platelet Count 309 K/mm3 (142-424); Red Blood Count 4.29 M/mm3 (4.20-5.40); Red Cell Distribution Width 15.6 % (11.5-17.5); White Blood Count 6.5 K/mm3 (4.8-10.8)
[2020-11-15 11:09] LABS: Chloride 99 mmol/L (98-107); Potassium 4.9 mmoL/L (3.5-5.1); Sodium 136 mmol/L (136-145)
[2020-11-15 11:11] LABS: Alanine Aminotransferase 13 U/L (12-78); Aspartate Amino Transferase 25 U/L (14-36); Bilirubin,Total 0.9 mg/dl (0.2-1.3); Blood Urea Nitrogen 8 mg/dl (7-17); Estimated Glomerular Filt Rate 96 ml/min (>60); GFR (African American) 116 ML/MIN (>60)
[2020-11-15 11:12] LABS: Albumin Level 4.4 g/dl (3.5-5.0); Albumin/Globulin Ratio 1.8 (1.1-1.8); Alkaline Phosphatase 113 U/L (38-126); Anion Gap 12.9 mEq/L (5-15); Calcium 9.3 mg/dl (8.4-10.2); Carbon Dioxide 29 mmol/L (22.0-30.0); Globulin 2.4 g/dL (1.3-3.2); Glucose 107 mg/dl (74-100); Total Protein,Serum 6.8 g/dl (6.3-8.2)
== END ==
PROVIDERS: Visit Provider Internal Medicine Medical Oncology
DX: Z85.72 Personal history of non-Hodgkin lymphomas (principal)
CPT/HCPCS: 36415; 80053; 85025

== ENCOUNTER → 2020-11-20 08:53 | Outpatient (CLI) | payer MEDICARE, SELFPAY ==
--- NOTE | 2020-11-20 | CT_ITS ---
PROCEDURE: CT ABDOMEN PELVIS W CON CLINICAL INDICATION: HX OF LYMPHOMA Follow up COMPARISON: CT ABDPELW CT abdomen pelvis w con from 11/01/[address] chest w con from 11/01/[address] ABDOMEN PELVIS W CON from 10/27/2019 TECHNIQUE: IV Contrast: 75ML Isovue 370 Oral Contrast None Axial images obtained with sagittal and coronal reformats. All CT scans at the facility use one or more dose reduction, viz: automated exposure control, ma/kV adjustment per patient size (including targeted exams where dose is matched to indication, i.e. head), or iterative reconstruction technique. FINDINGS: LOWER THORAX: No acute finding ABDOMEN & PELVIS: 2 cm cyst in segment 8 of the liver centrally unchanged. 4 mm cyst segment 6 unchanged. Prior cholecystectomy subtle hypodensity of the spleen inferiorly at 7 mm unchanged. The adrenal glands and pancreas have an unremarkable appearance. No renal calculi or renal mass. 12 mm exophytic left renal cyst. Mild ectasia the renal collecting system on both sides unchanged. No intestinal obstruction or free air. No evidence of appendicitis. There is colonic diverticulosis. No evidence of diverticulitis. There is prominence of the fundus of the uterus with some coarse calcification consistent with fibroid involvement not significantly changed. There are prominent periuterine veins which may be seen with pelvic congestion syndrome. No pelvic mass or abnormal fluid collection. Chronic wedge compression changes are present at L1 unchanged. 6 mm anterolisthesis L4 on L5 with degenerative disc disease. Degenerative changes lower thoracic spine. Mild dorsal subluxation of the coccyx unchanged. No abdominal or retroperitoneal adenopathy. No inguinal adenopathy IMPRESSION: Stable CT appearance of the abdomen and pelvis. No evidence of recurrence of lymphoma. Other nonacute findings as detailed above. Dictated by: Santi Calvin MD 11/21/2020 07:57 Santi Calvin MD in [place] 11/21/2020 07:57
--- NOTE | 2020-11-20 | CT_ITS ---
PROCEDURE: CT CHEST W CON CLINCAL INDICATION: HX OF LYMPHOMA Follow up COMPARISON: CT CT CHEST W CON from 10/27/2019 TECHNIQUE: IV Contrast: 75ml Isovue 370 Axial images obtained with sagittal and coronal reformats. All CT scans at the facility use one or more dose reduction, viz: automated exposure control, ma/kV adjustment per patient size (including targeted exams where dose is matched to indication, i.e. head), or iterative reconstruction technique. FINDINGS: HEART AND MEDIASTINAL STRUCTURES: No mediastinal or hilar adenopathy or mass. Coronary artery calcifications are noted. LUNGS AND PLEURAL SPACES: Old granulomatous disease. Stable 3 mm nodule right upper lobe image 19. Stable 3 mm nodule left upper lobe image 23. No new nodules effusions or infiltrates. BONY STRUCTURES: No acute bony abnormalities apparent. UPPER ABDOMEN: See abdomen report ADDITIONAL FINDINGS: No other significant abnormalities. IMPRESSION: Stable CT appearance of the chest. No evidence of recurrence of lymphoma Dictated by: Santi Calvin MD 11/21/2020 07:47 Santi Calvin MD in [place] 11/21/2020 07:47
== END ==
PROVIDERS: PCP Family Medicine; Visit Provider Internal Medicine Medical Oncology
DX: Z85.72 Personal history of non-Hodgkin lymphomas (principal)
CPT/HCPCS: 71260; 74177; Q9967

== ENCOUNTER → 2021-01-25 10:48 | Outpatient (CLI) | payer MEDICARE, SELFPAY ==
--- NOTE | 2021-01-25 10:49 | CA_ITS ---
APPROVED REPORT EXAM: Comprehensive 2D, Doppler, and color-flow Echocardiogram Crm Specialist: Adele Tay RVT Ht: 5 ft 2 in Wt: 146lbs BSA: 1.67 BP: 98/59 mmHg Indications: MURMUR,CP,CP 2D Dimensions LVOT 1.99 cm (M/F) 1.5-2.5 LA Volume 29.10 mL LA Volume Index 17.42 mL/m2 (M/F) 16-34 M-Mode Dimensions RVDd 2.47 cm (0.9-2.6) LA Diam 3.30 cm (1.9-4.0) LVDd 4.72 cm (3.5-5.7) Ao Diam 3.00 cm (2.0-3.7) LVDs 2.93 cm (3.5-5.7) IVSd 1.32 cm (0.6-1.1) PWd 0.82 cm (0.6-1.1) EF (Teich) 68.10% FS 37.90% EDV (Teich) 103.40 mL ESV (Teich) 33.00 mL LV Diastology E Decel Time 320.00 (160-240 msec) E/A Ratio 0.6 MED E' 6.30 (< 7 cm/sec) E'/MED E' Ratio 9.59 (>14) LAT E' 6.20 (<10 cm/sec) E/LAT E' Ratio 9.74 (>14) Aortic Valve LVOT Max 85.00 (70-110 cm/s) LVOT VTI 19.60 cm AoV Peak Dillon. 197.00 (50-130 cm/s) AI PHT 704.00 ms AO Peak GR. 15.50 mmHg AO Mean GR. 9.10 (<5 mmHg) AO VTI 42.78 (18-25 cm) MARYSE (VTI) 1.42 (2.5-4.5 cm2) Mitral Valve MV E Max Dillon. 60.00 (40-130 cm/s) MV A Velocity 106.00 (40-130 cm/s) E/A Ratio 0.57 MV Decel. Time 320.00 (160-240 ms) MV PHT 94.00 ms Pulmonary Valve PV Peak Velocity 82.00 (50-150 cm/s) Tricuspid Valve TR P. Velocity 263.00 cm/s RAP Estimate 10.00 mmHg RVSP 37.80 mmHg Left Ventricle Left atrium is mildly enlarged, left ventricle is normal size, mild concentric left ventricular hypertrophy, visually estimated ejection fraction 55% with no regional wall motion abnormality, grade 1 diastolic dysfunction seen without tissue Doppler evidence of raise left atrial pressure. Right Ventricle Right atrium and right ventricle are normal size and contractility. Aortic Valve Aortic valve is minimally thickened and fibrosed, there is no aortic stenosis, there is mild aortic insufficiency. Mitral Valve Mitral valve is grossly normal, there is trace mitral regurgitation. Tricuspid Valve Tricuspid grossly normal, there is trace tricuspid regurgitation, tricuspid regurgitation jet velocity is inadequate for calculation of the right ventricular systolic pressure. Pulmonic Valve Pulmonic valve is poorly visualized. Great Vessels Aortic root is normal size. Pericardium No significant pericardial effusion noted. Conclusion 1. Mildly enlarged left atrium, normal left ventricular size, visually estimated ejection fraction 55% with no regional wall motion abnormality, grade 1 diastolic dysfunction seen without tissue Doppler evidence of raise left atrial pressure. 2. Thickened and calcified aortic valve without aortic stenosis, there is mild aortic insufficiency. 3. Trace mitral and tricuspid regurgitation. 4. No significant pericardial effusion noted. Electronically signed by : Leonardo Guzman MD 01/25/2021 12:36:11
== END ==
PROVIDERS: PCP Family Medicine; Visit Provider Family Medicine
DX: R07.9 Chest pain, unspecified (principal); I35.8 Other nonrheumatic aortic valve disorders
CPT/HCPCS: 93306

== ENCOUNTER → 2021-01-31 12:04 | Outpatient (CLI) | payer MEDICARE, SELFPAY ==
[2021-01-31 12:29] LABS: Basophils # 0.1 K/mm3 (0-0.2); Basophils % 1.1 % (0.1-2.0); Eosinophils # 0.2 K/mm3 (0.0-0.4); Eosinophils % 3.4 % (0.1-12.0); Hematocrit 42.2 % (37.0-47.0); Hemoglobin 13.4 g/dL (12.2-16.2); Lymphocytes # 1.4 K/mm3 (0.7-4.5); Lymphocytes % 24.6 % (10-50); Mean Corpuscular HGB Conc 31.8 g/dL (31.8-35.4); Mean Corpuscular Hemoglobin 30.1 pg (27.0-31.2); Mean Corpuscular Volume 94.7 fl (81-99); Mean Platelet Volume 8.1 fl (7.4-10.4); Monocytes # 0.6 K/mm3 (0.1-1.0); Monocytes % 10.7 % (1.7-9.3); Neutrophils # 3.5 K/mm3 (1.8-7.8); Neutrophils % 60.1 % (37.0-80.0); Platelet Count 326 K/mm3 (142-424); Red Blood Count 4.46 M/mm3 (4.20-5.40); White Blood Count 5.8 K/mm3 (4.8-10.8)
[2021-01-31 14:00] LABS: Alanine Aminotransferase 11 U/L (12-78); Albumin/Globulin Ratio 1.4 (1.1-1.8); Alkaline Phosphatase 117 U/L (38-126); Anion Gap 14.4 mEq/L (5-15); Aspartate Amino Transferase 24 U/L (14-36); Bilirubin,Total 0.5 mg/dl (0.2-1.3); Blood Urea Nitrogen 9 mg/dl (7-17); Carbon Dioxide 29 mmol/L (22.0-30.0); Chloride 98 mmol/L (98-107); Estimated Glomerular Filt Rate 80 ml/min (>60); GFR (African American) 97 ML/MIN (>60); Globulin 2.8 g/dL (1.3-3.2); Glucose 83 mg/dl (74-100); Potassium 4.4 mmoL/L (3.5-5.1); Sodium 137 mmol/L (136-145); Total Protein,Serum 6.8 g/dl (6.3-8.2)
== END ==
PROVIDERS: Visit Provider Dermatology
DX: L30.9 Dermatitis, unspecified (principal); Z79.899 Other long term (current) drug therapy
CPT/HCPCS: 36415; 80053; 85025

== ENCOUNTER → 2021-02-05 11:06 | Outpatient (POV) | payer MEDICARE, SELFPAY | PROVIDERS: Visit Provider Dermatology | DX: Z00.00 Encounter for general adult medical examination without abnormal findings (principal) ==

== ENCOUNTER → 2021-03-13 07:53 | Outpatient (CLI) | payer MEDICARE, SELFPAY ==
--- NOTE | 2021-03-13 07:53 | MM_ITS ---
PROCEDURE: MM DIG SCREENING MAMM BI W/CAD Digital Breast Tomosynthesis Included CLINICAL INDICATION: screening xmg There has been a previous biopsy right breast for benign disease. COMPARISON: MG [facility]B DIG MAMM-SCREEN VENUS W/CAD from 02/23/2017 [facility] MM Dig screening mamm BI w/CAD from 04/02/2018 MG MM DIG SCREENING MAMM BI W/CAD from 03/08/2020 TECHNIQUE: Standard CC and MLO images and 3D Tomosynthesis was obtained. R2 CAD reviewed. FINDINGS: Moderate diffuse somewhat heterogenic fibroglandular densities are seen throughout both breast and the findings are bilateral and symmetrical. There is a biopsy clip right breast. There is faint arterial calcification in each breast. There is no new or suspicious lesion in either breast and no suspicious microcalcifications. IMPRESSION: Breast with diffuse heterogenic densities and no suspicious lesions seen BI-RAD Category: 2 Benign Finding(s) FOLLOW-UP: 1YR 1 Year Follow-up (A letter has been sent to the patient regarding results of the study.) Dictated by: Dr. Dereck Hernandez MD 03/19/2021 13:55 Dr. Dereck Hernandez MD in [place] 03/19/2021 13:55
== END ==
PROVIDERS: PCP Family Medicine; Visit Provider Nurse Practitioner Obstetrics & Gynecology
DX: Z12.31 Encounter for screening mammogram for malignant neoplasm of breast (principal)
CPT/HCPCS: 77063; 77067

== ENCOUNTER → 2021-06-18 10:49 | Outpatient (POV) | payer MEDICARE, SELFPAY ==
[2021-06-18 12:53] LABS: Basophils # 0.1 K/mm3 (0-0.2); Basophils % 2.7 % (0.1-2.0); Eosinophils # 0.2 K/mm3 (0.0-0.4); Eosinophils % 2.9 % (0.1-12.0); Hematocrit 38.9 % (37.0-47.0); Hemoglobin 12.3 g/dL (12.2-16.2); Lymphocytes % 20.3 % (10-50); Mean Corpuscular HGB Conc 31.7 g/dL (31.8-35.4); Mean Corpuscular Hemoglobin 30.6 pg (27.0-31.2); Mean Corpuscular Volume 96.7 fl (81-99); Mean Platelet Volume 7.7 fl (7.4-10.4); Monocytes # 0.4 K/mm3 (0.1-1.0); Monocytes % 8.5 % (1.7-9.3); Neutrophils # 3.3 K/mm3 (1.8-7.8); Neutrophils % 65.4 % (37.0-80.0); Platelet Count 308 K/mm3 (142-424); Red Blood Count 4.02 M/mm3 (4.20-5.40); Red Cell Distribution Width 16.9 % (11.5-17.5); White Blood Count 5.1 K/mm3 (4.8-10.8)
[2021-06-18 13:59] LABS: Chloride 100 mmol/L (98-107); Potassium 4.3 mmoL/L (3.5-5.1); Sodium 135 mmol/L (136-145)
[2021-06-18 14:01] LABS: Blood Urea Nitrogen 9 mg/dl (7-17); Estimated Glomerular Filt Rate 95 ml/min (>60); GFR (African American) 116 ML/MIN (>60)
[2021-06-18 14:02] LABS: Alanine Aminotransferase 12 U/L (12-78); Albumin Level 4.2 g/dl (3.5-5.0); Albumin/Globulin Ratio 1.8 (1.1-1.8); Alkaline Phosphatase 98 U/L (38-126); Anion Gap 9.3 mEq/L (5-15); Aspartate Amino Transferase 25 U/L (14-36); Bilirubin,Total 0.6 mg/dl (0.2-1.3); Calcium 9.1 mg/dl (8.4-10.2); Carbon Dioxide 30 mmol/L (22.0-30.0); Globulin 2.4 g/dL (1.3-3.2); Glucose 101 mg/dl (74-100); Total Protein,Serum 6.6 g/dl (6.3-8.2)
== END ==
PROVIDERS: PCP Family Medicine; Visit Provider Dermatology
DX: Z79.899 Other long term (current) drug therapy (principal)
CPT/HCPCS: 36415; 80053; 85025

== ENCOUNTER → 2021-07-24 10:32 | Outpatient (CLI) | payer MEDICARE, SELFPAY ==
--- NOTE | 2021-07-24 10:42 | XR_ITS ---
FINAL REPORT CLINICAL HISTORY: LEFT MEDIAL KNEE PAIN...fall back in mar FINDINGS: Three views of the left knee reveal no evidence of fracture or dislocation. The bony alignment is normal. There are mild degenerative changes. There is no evidence of joint effusion. No localized soft tissue abnormality is seen. IMPRESSION: Mild degenerative change. Reviewed, Interpreted and Dictated by Stoney Nick III, MD Transcribed by Santosh Monk Authenticated by Stoney Nick III, MD on 07/24/2021 12:29:[address] [facility]
== END ==
PROVIDERS: PCP Family Medicine; Visit Provider Family Medicine
DX: M25.562 Pain in left knee (principal)
CPT/HCPCS: 73562

== ENCOUNTER → 2021-09-17 11:06 | Outpatient (POV) | payer MEDICARE, SELFPAY | PROVIDERS: Visit Provider Dermatology | DX: Z00.00 Encounter for general adult medical examination without abnormal findings (principal) ==

== ENCOUNTER → 2022-04-29 13:51 | Outpatient (POV) | payer MEDICARE, SELFPAY | PROVIDERS: Visit Provider Dermatology | DX: Z00.00 Encounter for general adult medical examination without abnormal findings (principal) ==

== ENCOUNTER → 2022-05-08 15:08 | Outpatient (CLI) | payer MEDICARE, SELFPAY ==
--- NOTE | 2022-05-08 15:09 | MM_ITS ---
PROCEDURE INFORMATION: Exam: MG Bilateral Screening 3D Mammography Exam date and time: 05/08/2022 3:11 PM Age: 82 years old Clinical indication: Screening examination; Additional info: Screening mammogram TECHNIQUE: Imaging protocol: Bilateral Screening tomosynthesis and 2D mammography including computer-aided detection (CAD) when performed. COMPARISON: 1. MG MM DIG SCREENING MAMM BI W/CAD 03/13/2021 8:00 AM 2. MG MM DIG SCREENING MAMM BI W/CAD 03/08/2020 10:23 AM FINDINGS: MAMMOGRAPHY: Breast composition: IsBreast composition: The breasts are extremely dense, which lowers the sensitivity of mammography. Mass: None. Architectural distortion: None. Calcifications: No suspicious calcifications. Asymmetric density: None. Skin thickening: None. Axillary adenopathy: None. IMPRESSION: No mammographic evidence of malignancy. Annual screening is recommended unless otherwise clinically indicated. ASSESSMENT: BI-RADS Category 1: Negative
== END ==
PROVIDERS: PCP Family Medicine; Visit Provider Nurse Practitioner Obstetrics & Gynecology
DX: Z12.31 Encounter for screening mammogram for malignant neoplasm of breast (principal)
CPT/HCPCS: 77063; 77067

== ENCOUNTER → 2022-07-28 14:29 | Outpatient (CLI) | payer MEDICARE, SELFPAY | PROVIDERS: PCP Family Medicine; Visit Provider Family Medicine | DX: R41.3 Other amnesia (principal) ==

== ENCOUNTER → 2022-07-29 08:27 | Outpatient (CLI) | payer MEDICARE, SELFPAY ==
[2022-07-29 08:35] LABS: Microscopic, Urine URINE MICROSCOPIC (MICROSCOPIC)
[2022-07-29 08:54] LABS: Basophils # 0.2 K/mm3 (0-0.2); Eosinophils # 0.3 K/mm3 (0.0-0.4); Eosinophils % 5.1 % (0.1-12.0); Hematocrit 35.9 % (37.0-47.0); Hemoglobin 11.7 g/dL (12.2-16.2); Lymphocytes # 1.8 K/mm3 (0.7-4.5); Mean Corpuscular HGB Conc 32.7 g/dL (31.8-35.4); Mean Corpuscular Hemoglobin 29.6 pg (27.0-31.2); Mean Corpuscular Volume 90.3 fl (81-99); Mean Platelet Volume 8.1 fl (7.4-10.4); Monocytes # 0.5 K/mm3 (0.1-1.0); Monocytes % 9.5 % (1.7-9.3); Neutrophils # 2.6 K/mm3 (1.8-7.8); Neutrophils % 49.4 % (37.0-80.0); Platelet Count 284 K/mm3 (142-424); Red Blood Count 3.97 M/mm3 (4.20-5.40); Red Cell Distribution Width 15.2 % (11.5-17.5); White Blood Count 5.3 K/mm3 (4.8-10.8)
[2022-07-29 08:55] LABS: Appearance,Urine CLEAR (Clear); Bilirubin,Urine Negative (Negative); Blood, Urine Negative (Negative); Color,Urine YELLOW (Yellow); Glucose,Urine (UA) Negative (Negative); Ketones,Urine Negative (Negative); Leukocyte Esterase,Urine Negative (Negative); Nitrate,Urine Negative (Negative); PH,Urine 6.5 (5.0-8.5); Protein,Urine Negative (Negative); Urobilinogen,Urine 0.2 EU/dl (0.2)
[2022-07-29 09:07] LABS: Bacteria,Urine Trace /lpf; Hemoglobin A1C 5.7 % (4.0-6.0); Squamous Epithelial Cell,Urine Occasional #/hpf (0-5)
[2022-07-29 09:25] LABS: Alanine Aminotransferase 12 U/L (12-78); Albumin Level 3.8 g/dl (3.5-5.0); Albumin/Globulin Ratio 1.6 (1.1-1.8); Alkaline Phosphatase 99 U/L (38-126); Anion Gap 9.1 mEq/L (5-15); Aspartate Amino Transferase 22 U/L (14-36); Bilirubin,Total 0.7 mg/dl (0.2-1.3); Blood Urea Nitrogen 13 mg/dl (7-17); Calcium 8.6 mg/dl (8.4-10.2); Carbon Dioxide 27 mmol/L (22.0-30.0); Chloride 102 mmol/L (98-107); Cholesterol 138 mg/dl (140-200); Estimated Glomerular Filt Rate 80 ml/min (>60); GFR (African American) 96 ML/MIN (>60); Globulin 2.4 g/dL (1.3-3.2); Glucose 91 mg/dl (74-100); HDL Cholesterol 68 mg/dl (40-60); Potassium 4.1 mmoL/L (3.5-5.1); Sodium 134 mmol/L (136-145); Total Protein,Serum 6.2 g/dl (6.3-8.2); Triglycerides 38 mg/dl (30-150); VLDL Cholesterol 8 mg/dL (0-40)
[2022-07-29 09:36] LABS: Direct LDL Cholesterol 61.48 mg/dL (100-129)
[2022-07-29 09:40] LABS: 25-OH Vitamin D, Total 40.1 ng/mL (30-100)
[2022-07-29 10:30] LABS: Folate > 20.00 ng/mL; Vitamin B12 334 pg/mL (239-931)
== END ==
PROVIDERS: PCP Family Medicine; Visit Provider Family Medicine
DX: H81.10 Benign paroxysmal vertigo, unspecified ear (principal); L02.229 Furuncle of trunk, unspecified; E03.9 Hypothyroidism, unspecified; R73.03 Prediabetes; Z86.73 Personal history of transient ischemic attack (TIA), and cerebral infarction without residual deficits; E78.5 Hyperlipidemia, unspecified; R41.3 Other amnesia; E55.9 Vitamin D deficiency, unspecified
CPT/HCPCS: 36415; 80053; 80061; 81001; 82306; 82607; 82746; 83036; 84443; 85025; 87070; 87086; 87205

== ENCOUNTER 2022-11-30 10:20 | Emergency (ER) | payer MEDICARE, SELFPAY ==
--- NOTE | 2022-11-30 10:22 | XR_ITS ---
PROCEDURE INFORMATION: Exam: XR Left Hand Exam date and time: 11/30/2022 10:36 AM Age: 82 years old Clinical indication: Injury or trauma; Other: Smashed in car door; Blunt trauma (contusions or hematomas); Left; Index finger; Additional info: Pain- smashed index finger in car door TECHNIQUE: Imaging protocol: Radiologic exam of the left hand. Views: 3 or more views. COMPARISON: No relevant prior studies available. FINDINGS: Bones/joints: No visible fracture or dislocation. Soft tissues: Normal. Other findings: There is a laceration overlying the ulnar aspect of the 2nd digit's PIP joint. IMPRESSION: 1. There is a laceration overlying the ulnar aspect of the 2nd digit's PIP joint. 2. No visible fracture or dislocation.
[2022-11-30 10:50] VITALS: BP 141/86; PULSE 76; RESP 19; TEMP 36.8; O2SAT 100; BMI 24.7
--- NOTE | 2022-11-30 11:04 | EXP.UTC ---
Discharge Plan Disposition Patient Disposition: Home, Self-Care Condition: Good Prescriptions Prescriptions: No Action levothyroxine 75 mcg tablet 75 mcg PO DAILY 90 Days Qty: 90 Patient Comments: atorvastatin 10 mg tablet 10 mg PO DAILY 90 Days Qty: 90 Patient Comments: omeprazole 20 mg capsule,delayed release(DR/EC) 20 mg PO DAILY 90 Days Qty: 90 Patient Comments: aspirin 325 mg tablet 325 mg PO BID calcium carbonate-vitamin D3 [Calcium 500 With D] 500 mg(1,250mg) -400 unit tablet 1 tab PO BID polyethylene glycol 3350 [Miralax] 17 gram/dose powder 1 pack PO DAILY meclizine 25 mg tablet 25 mg PO DAILY oxazepam 15 mg capsule 25 mg PO QHS PRN (Reason: mood) sulfamethoxazole-trimethoprim [Bactrim DS] 800-160 mg tablet 1 tab PO BID Qty: 14 0RF Ciprodex 0.3-0.1 % drops,suspension 3 drp OTIC BID 10 Days Qty: 7.5 0RF hydrocortisone [Proctosol HC] 2.5 % cream with perineal applicator 1 applic RC QD-BID PRN (Reason: hemorrhoids) Qty: 30 0RF Referrals Follow up/Referrals: Jeannine Adrian APRN [Primary Care Provider] - See instructions Activity Restrictions/Add. Instructions Additional Instructions/Restrictions: Suture instructions: ?You have required stitches today. Please read the following instructions so you know how to care for them: ?1. Keep wound area dry for the first 24 hours. 2?? May clean gently with mild soap and water, after 48 hours to prevent crusting over suture knots. 3. You may shower if your provider gives permission but do not take a bath until the skin is healed.. 4. Never leave a wet dressing or Band-Aid on your stitches as this allows bacteria to reach the area and may cause infection. Band-aids can cause the wound to sweat and not recommended to wear for long periods of time Watch for signs of infection: ? Increasing redness, tenderness or warmth around the suture site ? Unusual swelling around the site ? Appearance of pus around each suture or any red streaks ? Fever If you develop any of the above signs or symptoms of infection, Follow up with Family Physician immediately 5. Suture removal in _10-12___days 6. Return to [facility] or follow up with family doctor for removal. This can be done by any medical provider dur?ing regular hours on Thursday through Thursday, by appointment. Clinical Impressions Clinical Impression: Laceration Instructions Patient Instructions: DI for Laceration Repair -- Simple Discharge ED Provider: Marcie Coleman [facility] [place] HPI General Stated complaint: AO 11/30, left hand pain Mode of Arrival: Ambulatory Source of Information: Patient Limitations: No Limitations Time Seen by Provider: 11/30/22 11:04 Description of Symptoms (Recalled from Triage Doc. by RN): PATIENT REPORTS SHE SMASHED HER LEFT INDEX FINGER IN CAR DOOT TODAY HEENT Symptoms (Recalled from RN notes): No Resp Symptoms (Recalled from RN notes): No Skin Symptoms (Recalled from RN notes): No MS Symptoms (Recalled from RN notes): Yes Functional Status (Recalled from RN notes): WNL History of Present Illness Provider Complaint: Patient states that she was going to orthodoxy earlier and she accidently shut the door on her left index finger States that she has a couple cuts on it and hurts when she moves it Related Data Home Medications Medication Instructions Recorded Confirmed aspirin 325 mg tablet 325 mg PO BID Heart disease 07/22/17 07/28/22 atorvastatin 10 mg tablet 10 mg PO DAILY Cholesterol 90 days 07/22/17 07/28/22 ##90 levothyroxine 75 mcg tablet 75 mcg PO DAILY thyroid 90 days 07/22/17 07/28/22 ##90 omeprazole 20 mg capsule,delayed 20 mg PO DAILY GERD 90 days ##90 07/22/17 07/28/22 release calcium carbonate 500 mg-vitamin 1 tab PO BID Supplement 01/20/18 07/28/22 D3 10 mcg (400 unit) tablet (Calcium 500 With D) meclizine 25 mg tablet 25 mg PO DAILY dizziness 01/20/18 07/28/22 oxazepam 15
[2022-11-30 11:37] VITALS: BP 141/86; PULSE 76; RESP 19; TEMP 36.8; O2SAT 100
== END 2022-11-30 12:03 | disposition home or self-care (01) ==
PROVIDERS: Emergency Provider Nurse Practitioner; PCP Nurse Practitioner Family
DX: S67.191A Crushing injury of left index finger, initial encounter (principal); S61.211A Laceration without foreign body of left index finger without damage to nail, initial encounter; F41.9 Anxiety disorder, unspecified; W23.0XXA Caught, crushed, jammed, or pinched between moving objects, initial encounter
CPT/HCPCS: 12002; 73130; 90471; 90715; 96372; 99204; 99213; G0463

== ENCOUNTER → 2023-05-14 10:46 | Outpatient (CLI) | payer MEDICARE, SELFPAY ==
--- NOTE | 2023-05-14 10:46 | MM_ITS ---
PROCEDURE INFORMATION: Exam: MG Bilateral Screening 3D Mammography Exam date and time: 05/14/2023 10:37 AM Age: 83 years old Clinical indication: Screening examination TECHNIQUE: Imaging protocol: Bilateral Screening tomosynthesis and 2D mammography including computer-aided detection (CAD) when performed. COMPARISON: 1. MG MM DIG SCREENING MAMM BI W/CAD 05/08/2022 3:11 PM 2. MG MM DIG SCREENING MAMM BI W/CAD 03/13/2021 8:00 AM FINDINGS: MAMMOGRAPHY: Breast composition: The breasts are heterogeneously dense, which may obscure small masses. Mass: None. Architectural distortion: None. Calcifications: No suspicious calcifications. Asymmetric density: None. Skin thickening: None. Axillary adenopathy: None. IMPRESSION: No mammographic evidence of malignancy. Annual screening is recommended unless otherwise clinically indicated. ASSESSMENT: BI-RADS Category 1: Negative
== END ==
PROVIDERS: PCP Nurse Practitioner Family; Visit Provider Nurse Practitioner Obstetrics & Gynecology
DX: Z12.31 Encounter for screening mammogram for malignant neoplasm of breast (principal)
CPT/HCPCS: 77063; 77067

== ENCOUNTER 2023-08-06 21:08 | Outpatient (CLI) | payer MEDICARE, SELFPAY ==
[2023-08-06 18:11] LABS: Microscopic, Urine URINE MICROSCOPIC (MICROSCOPIC)
[2023-08-06 18:24] LABS: Appearance,Urine CLEAR (Clear); Bilirubin,Urine Negative (Negative); Blood, Urine TRACE-I (Negative); Color,Urine YELLOW (Yellow); Glucose,Urine (UA) Negative (Negative); Ketones,Urine Negative (Negative); Leukocyte Esterase,Urine Negative (Negative); Nitrate,Urine Negative (Negative); Protein,Urine Negative (Negative)
[2023-08-06 18:26] LABS: Basophils # 0.1 K/mm3 (0-0.2); Basophils % 0.7 % (0.1-2.0); Eosinophils # 0.3 K/mm3 (0.0-0.4); Hematocrit 41.5 % (37.0-47.0); Lymphocytes # 2.1 K/mm3 (0.7-4.5); Lymphocytes % 26.7 % (10-50); Mean Corpuscular HGB Conc 31.4 g/dL (31.8-35.4); Mean Corpuscular Hemoglobin 29.8 pg (27.0-31.2); Mean Corpuscular Volume 94.8 fl (81-99); Mean Platelet Volume 8.6 fl (7.4-10.4); Monocytes # 0.5 K/mm3 (0.1-1.0); Monocytes % 6.2 % (1.7-9.3); Neutrophils % 62.3 % (37.0-80.0); Platelet Count 324 K/mm3 (142-424); Red Blood Count 4.37 M/mm3 (4.20-5.40); Red Cell Distribution Width 14.8 % (11.5-17.5)
[2023-08-06 18:53] LABS: Alanine Aminotransferase 11 U/L (12-78); Albumin Level 4.4 g/dl (3.5-5.0); Albumin/Globulin Ratio 1.9 (1.1-1.8); Alkaline Phosphatase 129 U/L (38-126); Anion Gap 12.5 mEq/L (5-15); Aspartate Amino Transferase 24 U/L (14-36); Bilirubin,Total 0.8 mg/dl (0.2-1.3); Blood Urea Nitrogen 9 mg/dl (7-17); Calcium 8.9 mg/dl (8.4-10.2); Carbon Dioxide 28 mmol/L (22.0-30.0); Chloride 95 mmol/L (98-107); Chol/HDL Ratio 2.4 (1-3.5); Cholesterol 172 mg/dl (140-200); Estimated Glomerular Filt Rate 95 ml/min (>60); GFR (African American) 115 ML/MIN (>60); Globulin 2.3 g/dL (1.3-3.2); Glucose 90 mg/dl (74-100); HDL Cholesterol 71 mg/dl (40-60); Potassium 4.5 mmoL/L (3.5-5.1); Sodium 131 mmol/L (136-145); Total Protein,Serum 6.7 g/dl (6.3-8.2); Triglycerides 42 mg/dl (30-150); VLDL Cholesterol 8 mg/dL (0-40)
[2023-08-06 19:03] LABS: Free T4 (Free Thyroxine) 1.42 ng/dl (0.78-2.19)
[2023-08-06 19:12] LABS: Direct LDL Cholesterol 71.18 mg/dL (100-129)
[2023-08-06 19:23] LABS: 25-OH Vitamin D, Total 36.9 ng/mL (30-100)
[2023-08-06 19:28] LABS: Thyroid Stimulating Hormone 5.97 uIU/mL (0.465-4.68)
[2023-08-06 19:41] LABS: RBC,Urine Occasional #/hpf (0-3); Squamous Epithelial Cell,Urine Occasional #/hpf (0-5)
[2023-08-06 19:49] LABS: Vitamin B12 349 pg/mL (239-931)
[2023-08-06 21:11] LABS: Hemoglobin A1C 6.1 % (4.0-6.0)
== END 2023-08-06 23:59 ==
LOC: LAB.DROPOF 21:09
PROVIDERS: PCP Nurse Practitioner Family; Visit Provider Nurse Practitioner Family
DX: I10 Essential (primary) hypertension (principal); R53.83 Other fatigue; R73.03 Prediabetes; E03.9 Hypothyroidism, unspecified; R39.9 Unspecified symptoms and signs involving the genitourinary system; M81.0 Age-related osteoporosis without current pathological fracture; E78.5 Hyperlipidemia, unspecified; B96.89 Other specified bacterial agents as the cause of diseases classified elsewhere
CPT/HCPCS: 80053; 80061; 81001; 82306; 82607; 83036; 84439; 84443; 85025; 87086

== ENCOUNTER 2023-09-01 10:44 | Outpatient (POV) | payer MEDICARE, SELFPAY | END 2023-09-01 23:59 | disposition home or self-care (01) | LOC: SC 10:44 | PROVIDERS: PCP Nurse Practitioner Family; Visit Provider Dermatology | DX: Z00.00 Encounter for general adult medical examination without abnormal findings (principal) ==

== ENCOUNTER 2023-09-01 14:43 | Outpatient (CLI) | payer MEDICARE, SELFPAY ==
[2023-09-01 15:16] LABS: Free T4 (Free Thyroxine) 1.93 ng/dl (0.78-2.19)
[2023-09-01 15:31] LABS: Thyroid Stimulating Hormone 0.95 uIU/mL (0.465-4.68)
== END 2023-09-01 23:59 ==
LOC: LAB.DROPOF 14:43
PROVIDERS: PCP Nurse Practitioner Family; Visit Provider Nurse Practitioner Family
DX: E03.9 Hypothyroidism, unspecified (principal)
CPT/HCPCS: 84439; 84443

== ENCOUNTER 2023-09-28 10:45 | Outpatient (CLI) | payer MEDICARE, SELFPAY ==
--- NOTE | 2023-09-28 10:57 | XR_ITS ---
FINAL REPORT CLINICAL HISTORY: chronic right knee pain FINDINGS: RIGHT KNEE 3 views of the right knee were obtained. There is no acute fracture or dislocation. There are mild degenerative changes. Visualized joint spaces are normally aligned. Soft tissues are unremarkable. IMPRESSION: No acute bony abnormality. Reviewed, Interpreted and Dictated by Stoney Nick III, MD Transcribed by Glendy Lujan Authenticated and [facility]
== END 2023-09-28 23:59 | disposition home or self-care (01) ==
LOC: RAD 10:47
PROVIDERS: PCP Nurse Practitioner Family; Visit Provider Nurse Practitioner Family
DX: M25.561 Pain in right knee (principal)
CPT/HCPCS: 73562

== ENCOUNTER 2023-10-13 13:35 | Outpatient (CLI) | payer MEDICARE, SELFPAY ==
--- NOTE | 2023-10-13 13:36 | MR_ITS ---
FINAL REPORT CLINICAL HISTORY: Right knee pain FINDINGS: Multi planar MR imaging was performed of the right knee. The anterior and posterior cruciate ligaments are intact. The quadriceps and patellar tendons are intact. There is a complex full-thickness tear of the anterior horn of the lateral meniscus. The medial meniscus is intact. The medial and lateral collateral ligaments appear intact. The medial and lateral retinacula appear intact. There is no evidence of bone marrow edema or osteochondral defect. There is a small joint effusion. There is grade 1 chondromalacia along the undersurface of the patella. No evidence of soft tissue inflammatory reaction. IMPRESSION: Complex full-thickness tear anterior horn lateral meniscus. 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 Reviewed, Interpreted and Dictated by David Neumann MD Transcribed by Barbara Hernandez Authenticated and [facility]
== END 2023-10-13 23:59 | disposition home or self-care (01) ==
LOC: RAD 13:36
PROVIDERS: PCP Nurse Practitioner Family; Visit Provider Nurse Practitioner Family
DX: M25.561 Pain in right knee (principal)
CPT/HCPCS: 73721

== ENCOUNTER 2024-05-23 11:00 | Outpatient (RCR) | payer MEDICARE, SELFPAY ==
--- NOTE | 2024-05-12 14:51 | HMH.PTOPEV ---
PT Outpatient Evaluation Rehab PT Outpatient Evaluation Start: 05/12/24 11:03 Freq: Status: Active Protocol: Document 05/12/24 11:04 SRIRAM (Rec: 05/12/24 12:58 SRIRAM [id number]) E-signed By Amanda Garcia, PT Outpatient Therapy Subjective History Subjective History This is an initial physical therapy evaluation for pleasant 84 y/o female, Kim Begum, who presents to PT with referral from PCP for complex tear of lateral meniscus. Pt reports she has seen a physician and PA a few times for her knee pain. Pt reports the she received a cortisone shot that she reports did not help her symptoms. Pt reports she was educated on possible surgery options and decided to trial PT first. Pt is on meloxicam, volterin gel, and heat which she reports helps her symptoms . Pt reports her pain does wake her up at night with 10/ 10 pain. Pt reports her knee does swell intermittently when pain is severe. Chief complaint: Reports generalized knee pain with grabbing/catching. Onset of injury: June- July. Pt was walking in back yard and noticed her knee started hurting. Denies known trauma or injury leading to injury. Imaging: Knee MRI on 10/13/23: Complex full-thickness tear anterior horn lateral meniscus . 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 Chief Complaint Pain,Stiff,Clicks,Catches/ Locks Symptom Type Ache,Throb Symptoms Relieved By Rest/Positioning,Heat, Prescription Meds,Activity Symptoms Aggravated By Bending/Stooping,Physical Activity,Walking,Lifting Prior Functional Limitations None Current Functional Limitations Lifting,Housework,Driving, Sleeping,Standing,Sitting, Squatting,Recreation Activity, Walking,Stairs Symptom Description Pain at Rest,Activity Dependent Level of pain today (0-10) 4 Pain scale - at its best (0-10) 4 Pain scale - at its worst (0-10) 10 Hip/Knee Eval Gait Observation General Gait Pattern Observation Antalgic Gait Assistive Device Assistive Devices None / NA Palpation Tenderness right Knee Palpation Finding Tenderness Knee Palpation Overall Comment 2/4 TTP lateral, medial, and posterior knee joint line MMT Hip Flexion Strength Grade 4- Good- Hip Abduction Strength Grade 4- Good- Hip Adduction Strength Grade 3+ Fair+ Knee Extension Strength Grade 3+ Fair+ Knee Flexion Strength Grade 3+ Fair+ ROM Knee Extension Active Range of Motion ( lacking 7 degrees degrees) Knee Flexion Active Range of Motion ( 85 degrees, painful degrees) Knee ROM Limitations Pain Special Tests Knee Juan David Test Positive Right Lower Extremity Functional Index Activities Today, do you or would you have any difficulty at all with: a.Any of your usual work, housework or Moderate difficulty school activities b. Your usual hobbies, recreational or Moderate difficulty sporting activities c. Getting into or out of the bath Quite a bit of difficulty d. Walking between rooms Quite a bit of difficulty e. Putting on your shoes or socks Quite a bit of difficulty f. Squatting Extreme difficulty or unable to perform activity g. Lifting an object, like a bag of Extreme difficulty or unable groceries from the floor to perform activity h. Performing light activities around Quite a bit of difficulty your home i. Performing heavy activities around Extreme difficulty or unable your home to perform activity j. Getting into or out of a car Extreme difficulty or unable to perform activity k. Walking 2 blocks Extreme difficulty or unable to perform activity l. Walking a mile Extreme difficulty or unable to perform activity m. Going up or down 10 stairs (about 1 Extreme difficulty or unable flight of stairs) to perform activity n. Standing for 1 hour Extreme difficulty or unable to perform activity o. Sitting for 1 hour Extreme difficulty or unable to perform activity p. Running on even ground Quite a bit of difficulty q. Running on uneven ground Extreme difficulty or unable to perform activity r. Making sharp turns while running fast Extreme difficulty or unable to perform activity s. Hopping Extreme difficulty or unable to perform activity t. Rolling over in bed Quite a bit of difficulty LEFI Score Lower Extremity Functional Index Score 10 Outpatient Therapy Assessment Impairments Problems/Impairmments Palpation Tenderness,Impaired Range of Motion,Impaired Strength,Impaired Endurance, Impaired Transfers,Impaired Gait Pattern,Impaired Walking, Impaired Standing,Impaired Sitting,Impaired Lifting, Impaired Dressing,Impaired Shower/Bathing,Impaired Household Care,Impaired Stair Climbing,Impaired Incline Stepping,Impaired Stepping on Uneven Surface,Impaired Squatting,Impaired Bending, Impaired Recreational Activities,Impaired Running, Impaired Jumping,Impaired Balance,Subjective C/O Pain Prognosis Rehab Potential Good Comment Pt presents with chronic R knee pain complaints with an MRI confirmed full thickness lateral meniscus tear. Pt demo 'd impaired gait, knee AROM, knee and hip strength, and was TTP multiple points on her knee. Pt with impaired ability to perform functional mobility (supine<>sit, STS, donning shoes, rolling supine< >prone) secondary to knee pain . Pt would benefit from skilled OP PT to address deficits and decrease pain complaints. Clinical Impression Consistent with Diagnosis Yes Consistent with Meniscus tear Short Term Goals Number of Weeks 3 Increase Range of Motion Yes: Improve AROM of R knee to at least 90 degrees. Increase Strength Yes: Improve R knee strength to 4/5 to improve functional strength. Improve LEFI Score Yes: Improve by 3 points Decrease Subjective C/O Pain Yes: 24 hour gutierrez average of 5/ 10 to decrease pain severity. Patient to be Ind w/ HEP Yes Mcfp Goals Increase Range of Motion Yes: R knee AROM improve to 100 degrees to improve function. Increase Strength Yes: R hip and knee score 5/5 on MMT to maximize function. Improve Transfers Yes: Verbalize improved ability to perform car transfers. Improve LEFI Score Yes: Improve by 7 points since IE. Decrease Subjective C/O Pain Yes: 48 hour pain average of 3 10 Patient to be Ind w/ HEP Yes Outpatient Therapy Plan of Care Treatment Plan May Include Therapeutic Exercise Including Home Yes Exercise Program Manual Therapy Techniques Yes Neuromuscular Re-education Yes Therapeutic Activities to Return to Yes Previous Functional/Work Level Gait Training Yes ADL/Self Care Education Yes Dry Needling Yes Thermal Modalities Yes Electrical Stimulation Yes Ultrasound/Phonophoresis Yes Iontophoresis Yes Orthotics/Bracing/Splinting Yes Vasopneumatic Compression Pump Yes Massage Yes Eval/Re-Eval Yes Aquatic Therapy Yes Frequency Times per week 2-3 times Duration Number of Weeks 5-6 weeks Addendums This patient is a candidate for social No or vocational rehab? Patient/Guardian verbally acknowledges Yes understanding of treatment program and consents to further treatment? Patient/Guardian verbally acknowledges Yes understanding of diagnosis, prognosis and goals for treatment? Eval Complexity PT Charges 09939 - Moderate Complexity Shoulder/Elbow Eval Shoulder Objective Measurements Elbow Objective Measurements PHYSICIAN CERTIFICATION: I certify the specified therapy services for Kim Begum are required, authorized, and reviewed every 30 days.
== END 2024-05-23 23:59 | disposition home or self-care (01) ==
LOC: PT 11:00
PROVIDERS: PCP Internal Medicine; Visit Provider Internal Medicine
DX: M25.561 Pain in right knee (principal); S83.271A Complex tear of lateral meniscus, current injury, right knee, initial encounter
CPT/HCPCS: 97014; 97110; 97163; G0283

== ENCOUNTER 2024-06-02 09:43 | Outpatient (CLI) | payer MEDICARE, SELFPAY ==
--- NOTE | 2024-06-02 09:48 | XR_ITS ---
FINAL REPORT CLINICAL HISTORY: Cough, SOA FINDINGS: CHEST 2 VIEWS PA AND LATERAL There is mild cardiomegaly. The mediastinum is unremarkable. The lungs are underinflated. There are trace bilateral effusions and bibasilar atelectasis. There is no pneumothorax. IMPRESSION: Trace bilateral effusions and bibasilar atelectasis. Recommend continued follow-up. Reviewed, Interpreted and Dictated by David Neumann MD Transcribed by Barbara Hernandez Authenticated and [facility]
[2024-06-02 11:35] LABS: Coronavirus 19, PCR Not Detected (NotDetected); Human Rhinovirus Not Detected (NotDetected); Influenza A, PCR Not Detected (NotDetected); Influenza B, PCR Not Detected (NotDetected); Respiratory Syncytial Virus Not Detected (NotDetected)
== END 2024-06-02 23:59 | disposition home or self-care (01) ==
LOC: RAD 09:44
PROVIDERS: PCP Internal Medicine; Visit Provider Internal Medicine
DX: R05.9 Cough, unspecified (principal); J98.8 Other specified respiratory disorders; R06.2 Wheezing; R07.89 Other chest pain; R09.89 Other specified symptoms and signs involving the circulatory and respiratory systems; R06.02 Shortness of breath
CPT/HCPCS: 71046; 87631

== ENCOUNTER 2024-06-07 14:24 | Outpatient (CLI) | payer MEDICARE, SELFPAY ==
--- NOTE | 2024-06-07 14:26 | XR_ITS ---
FINAL REPORT CLINICAL HISTORY: Worsening SOA since previous chest x-ray. Chest discomfort. Productive cough. COMPARISON: 06/02/2024 FINDINGS: There are small bilateral effusions. There is interstitial edema and mild atelectasis. The mediastinum has a normal appearance. There is moderate cardiomegaly. IMPRESSION: Mild CHF, stable to minimally worse. Reviewed, Interpreted and Dictated by Jeremiah Soria MD Transcribed by Barbara Hernandez Authenticated and [facility][1]
== END 2024-06-07 23:59 | disposition home or self-care (01) ==
LOC: RAD 14:25
PROVIDERS: PCP Internal Medicine; Visit Provider Internal Medicine
DX: J98.8 Other specified respiratory disorders (principal)
CPT/HCPCS: 71046

== ENCOUNTER 2024-08-02 09:34 | Outpatient (CLI) | payer MEDICARE, SELFPAY ==
--- NOTE | 2024-08-02 09:44 | XR_ITS ---
FINAL REPORT TECHNIQUE: Chest PA & Lateral CLINICAL HISTORY: Shortness of breath, cough COMPARISON: 06/07/2024 FINDINGS: 2 views of the chest were performed. There is mild cardiomegaly. The mediastinum is within normal limits. There are mild chronic changes at the lung bases. There are no pleural effusions. There is no pneumothorax. The bony thorax appears intact. IMPRESSION: No acute cardiopulmonary process. Reviewed, Interpreted and Dictated by David Neumann MD Transcribed by Flower Ibarra Authenticated and [facility]
[2024-08-02 13:38] LABS: Basophils # 0.1 K/mm3 (0-0.2); Basophils % 1.1 % (0.1-2.0); Eosinophils # 0.2 K/mm3 (0.0-0.4); Eosinophils % 2.8 % (0.1-12.0); Hemoglobin 10.7 g/dL (12.2-16.2); Lymphocytes % 13.6 % (10-50); Mean Corpuscular HGB Conc 32.4 g/dL (31.8-35.4); Mean Corpuscular Hemoglobin 28.2 pg (27.0-31.2); Mean Corpuscular Volume 87.1 fl (81-99); Mean Platelet Volume 9.7 fl (7.4-10.4); Monocytes # 0.8 K/mm3 (0.1-1.0); Monocytes % 10.9 % (1.7-9.3); Neutrophils # 5.1 K/mm3 (1.8-7.8); Neutrophils % 71.3 % (37.0-80.0); Platelet Count 345 K/mm3 (142-424); Red Blood Count 3.79 M/mm3 (4.20-5.40); Red Cell Distribution Width 15.6 % (11.5-17.5); White Blood Count 7.1 K/mm3 (4.8-10.8)
[2024-08-02 19:49] LABS: Procalcitonin 0.034 ng/mL (0.0-2.0)
== END 2024-08-02 23:59 | disposition home or self-care (01) ==
LOC: RAD 09:35
PROVIDERS: PCP Internal Medicine; Visit Provider Internal Medicine
DX: J98.8 Other specified respiratory disorders (principal); R05.9 Cough, unspecified
CPT/HCPCS: 71046; 84145; 85025

== ENCOUNTER 2024-09-05 10:49 | Outpatient (CLI) | payer MEDICARE, SELFPAY ==
--- NOTE | 2024-09-05 10:54 | XR_ITS ---
FINAL REPORT CLINICAL HISTORY: Chronic cough, new soa COMPARISON: 08/02/2024 FINDINGS: 2 views of the chest were obtained . The heart is mildly enlarged. The mediastinum is within normal limits. There are small bilateral pleural effusions. Lungs are otherwise clear. There is no pneumothorax. Osseous structures are unremarkable. IMPRESSION: Small bilateral pleural effusions. Reviewed, Interpreted and Dictated by David Neumann MD Transcribed by Glendy Lujan Authenticated and [facility]
== END 2024-09-05 23:59 | disposition home or self-care (01) ==
PROVIDERS: PCP Internal Medicine; Visit Provider Internal Medicine
DX: R05.9 Cough, unspecified (principal)
CPT/HCPCS: 71046

== ENCOUNTER 2024-09-08 15:12 | Outpatient (CLI) | payer MEDICARE, SELFPAY ==
--- NOTE | 2024-09-08 15:30 | MM_ITS ---
PROCEDURE INFORMATION: Exam: MG Bilateral Screening 3D Mammography Exam date and time: 09/08/2024 3:35 PM Age: 84 years old Clinical indication: Screening. No family history of breast cancer. TECHNIQUE: Imaging protocol: Bilateral Screening tomosynthesis and 2D mammography including computer-aided detection (CAD) when performed. COMPARISON: 1. MG MM DIG SCREENING MAMM BI W/CAD 05/14/2023 10:37 AM 2. MG MM DIG SCREENING MAMM BI W/CAD 05/08/2022 3:11 PM 3. MG MM DIG SCREENING MAMM BI W/CAD 03/13/2021 8:00 AM 4. MG MM DIG SCREENING MAMM BI W/CAD 03/08/2020 10:23 AM FINDINGS: MAMMOGRAPHY: Breast composition: The breasts are heterogeneously dense, which may obscure small masses. Mass: No suspicious mass. Please Architectural distortion: None. Calcifications: No suspicious calcifications. Asymmetric density: None. Skin thickening: None. Axillary adenopathy: None. IMPRESSION: No mammographic evidence of malignancy. Annual screening is recommended unless otherwise clinically indicated. ASSESSMENT: BI-RADS Category 1: Negative.
== END 2024-09-08 23:59 | disposition home or self-care (01) ==
LOC: RAD 15:14
PROVIDERS: PCP Internal Medicine; Visit Provider Internal Medicine
DX: Z12.31 Encounter for screening mammogram for malignant neoplasm of breast (principal)
CPT/HCPCS: 77063; 77067

== ENCOUNTER 2024-10-13 11:34 | Outpatient (CLI) | payer MEDICARE, SELFPAY ==
--- NOTE | 2024-10-13 11:38 | XR_ITS ---
FINAL REPORT CLINICAL HISTORY: Shortness of breath, Cough, Effusions on previous XR COMPARISON: 09/05/2024 FINDINGS: The lungs are hypoinflated with mild atelectasis. There are tiny bilateral pleural effusions. No evidence of edema or pneumonia is noted. There is no evidence of pneumothorax. Mediastinum is unremarkable. Heart size is normal. IMPRESSION: Poor inspiration with atelectasis. Reviewed, Interpreted and Dictated by Jeremiah Soria MD Transcribed by Lakisha John Authenticated and [facility]
[2024-10-13 12:33] LABS: Basophils # 0.1 K/mm3 (0-0.2); Basophils % 1.1 % (0.1-2.0); Eosinophils # 0.3 Kmm3 (0.0-0.4); Eosinophils % 3.6 % (0.1-12.0); Hemoglobin 10.4 g/dL (12.2-16.2); Immature Granulocytes # 0.04 10^3uL; Immature Granulocytes % 0.6 %; Lymphocytes # 1.4 K/mm3 (0.7-4.5); Mean Corpuscular HGB Conc 32.5 g/dL (31.8-35.4); Mean Corpuscular Hemoglobin 26.5 pg (27.0-31.2); Mean Corpuscular Volume 81.4 fl (81-99); Mean Platelet Volume 10.4 fl (7.4-10.4); Monocytes # 0.8 K/mm3 (0.1-1.0); Monocytes % 11.4 % (1.7-9.3); Neutrophils # 4.6 K/mm3 (1.8-7.8); Neutrophils % 63.3 % (37.0-80.0); Nucleated Red Blood Cells # 0 10^3/uL; Nucleated Red Blood Cells % 0 %; Platelet Count 236 K/mm3 (142-424); Red Blood Count 3.93 M/mm3 (4.20-5.40); Red Cell Distribution Width 15.9 % (11.5-17.5); Red Cell Distribution Width-SD 47.1 fL; White Blood Count 7.2 K/mm3 (4.8-10.8)
[2024-10-13 13:10] LABS: Albumin Level 3.9 g/dl (3.5-5.0); Chloride 93 mmol/L (98-107); Sodium 127 mmol/L (136-145)
[2024-10-13 13:11] LABS: Potassium 3.8 mmoL/L (3.5-5.1)
[2024-10-13 13:13] LABS: Alanine Aminotransferase 172 U/L (12-78); Albumin/Globulin Ratio 1.7 (1.1-1.8); Alkaline Phosphatase 94 U/L (38-126); Anion Gap 9.8 mEq/L (5-15); Aspartate Amino Transferase 179 U/L (14-36); Bilirubin,Total 1.6 mg/dl (0.2-1.3); Blood Urea Nitrogen 16 mg/dl (7-17); Carbon Dioxide 28 mmol/L (22.0-30.0); Estimated Glomerular Filt Rate 59 ml/min (>60); GFR (African American) 72 ML/MIN (>60); Globulin 2.3 g/dL (1.3-3.2); Total Protein,Serum 6.2 g/dl (6.3-8.2)
[2024-10-13 13:14] LABS: Calcium 8.7 mg/dl (8.4-10.2); Glucose 108 mg/dl (74-100)
[2024-10-14 14:48] LABS: NT Pro Brain Natriuretic Pep. 16900 pg/mL (0-450)
== END 2024-10-13 23:59 | disposition home or self-care (01) ==
LOC: LAB 11:35
PROVIDERS: PCP Internal Medicine; Visit Provider Internal Medicine
DX: R05.9 Cough, unspecified (principal); J98.8 Other specified respiratory disorders; R53.83 Other fatigue; D64.9 Anemia, unspecified; I50.9 Heart failure, unspecified
CPT/HCPCS: 36415; 71045; 80053; 83880; 85025

== ENCOUNTER 2024-10-18 15:14 | Inpatient (IN) | payer MEDICARE, SELFPAY ==
--- NOTE | 2024-10-18 15:31 | PC.NURSE ---
arrived by w/c from front lobby admissions
--- NOTE | 2024-10-18 15:39 | CA_ITS ---
APPROVED REPORT EXAM: Comprehensive 2D, Doppler, and color-flow Echocardiogram Oyster Cultivator: LUANN López, RVS Ht: 5 ft 1 in Wt: 144lbs BSA: 1.64 BP: 115/72 mmHg Indications: HF, murmur, CP, edema, cough, dyspnea, elevated BNP, fatigue Echo Enhancing Agent Indication: Endocardial border delineation Agent(s) / Amount(s) Used: Definity 2 cc 2D Dimensions IVSd 0.95 cm F: 0.6-1.0 LVEF (Visual) 22.60 % PWd 1.02 cm F: 0.6 - 1.0 LA Volume 60.40 mL LVDd 4.92 cm F: 3.9 - 5.3 LA Volume Index 36.83 mL/m2 (M/F) 16-34 LVDs 4.41 cm F: 2.2 - 3.5 Left Atrium 4.39 cm F: 2.7 - 3.8 LVOT 1.70 cm (M/F) 1.5-2.5 M-Mode Dimensions RVDd 2.44 cm (0.9-2.6) LA Diam 4.84 cm (1.9-4.0) LVDd 5.36 cm (3.5-5.7) LVDs 4.79 cm (3.5-5.7) IVSd 1.11 cm (0.6-1.1) PWd 1.13 cm (0.6-1.1) EF (Teich) 23.00% EPSs 1.37 cm FS 10.60% EDV (Teich) 138.90 mL TAPSE 1.09 (<1.7) ESV (Teich) 107.00 mL LV Diastology E Decel Time 110 (160-240 msec) E/A Ratio 2.71 MED A' 2.30 cm/s LAT A' 3.40 cm/s Aortic Valve MARYSE Index 0.59 cm2/m2 AoV Peak Dillon. 266.0 (50-130 cm/s) AI PHT 460.00 ms AO Peak GR. 28.40 mmHg AO Mean GR. 14.60 (<5 mmHg) AO VTI 42.6 (18-25 cm) MARYSE (VTI) 0.99 (2.5-4.5 cm2) Mitral Valve MV A Velocity 41.0 (40-130 cm/s) E/A Ratio 2.71 Pulmonary Valve AZ End VMAX 212.0 cm/s Tricuspid Valve TR P. Velocity 356.00 cm/s RAP Estimate 10.00 mmHg RVSP 60.80 mmHg Left Ventricle The left ventricle is normal size. Left ventricular systolic function is severely decreased. There is increased LV wall thickness. Grade 3 diastolic dysfunction is present. There is severe global hypokinesis present. The distal And apical LV freed are akinetic. No left ventricle thrombus noted on this study. LVEF is 20%. Right Ventricle Right ventricle is mildly dilated. Right ventricle is mildly hypokinetic. Atria Left atrium is moderately dilated. Right atrium is moderately dilated. There is no Doppler evidence of interatrial shunt. Aortic Valve The aortic valve is moderately thickened. Low-flow, low-gradient severe aortic stenosis is present. MARYSE by 2D planimetry is 0.9 cm2. Peak velocity was 2.8 m/s. Mean AV gradient is 13 mmHg. Max AV gradient is 27 mmHg. SVi < 35 ml/m2. DI=0.23. Mild aortic regurgitation. Mitral Valve The mitral valve leaflets are mildly thickened. No evidence of mitral valve stenosis. Mild to moderate mitral regurgitation. Tricuspid Valve Tricuspid valve is grossly normal in structure and function. Moderate tricuspid regurgitation. RVSP is 50-55 mmHg. Pulmonic Valve The pulmonary valve is normal in structure. Mild pulmonic regurgitation. Great Vessels The aortic root is normal in size. IVC is normal in size and collapses >50% with inspiration. Pericardium Trace, anterior pericardial effusion is present. No echo indications of tamponade. Pleural effusion is present. Other Information Study Quality: Technically Difficult Conclusion Severe reduction in LV systolic function (LVEF 20%). Grade 3 diastolic dysfunction. Akinesis of the distal and apical LV freed. Mild RV dilation with mild reduction in RV function. Biatrial dilation. Low-flow, low-gradient severe (MARYSE by 2D planimetry is 0.9 cm2. Peak velocity was 2.8 m/s. Mean AV gradient is 13 mmHg. Max AV gradient is 27 mmHg. SVi < 35 ml/m2. DI=0.23). Mild AI, mild PI. Mild to moderate MR. Moderate TR. Markedly elevated RVSP 50-55 mmHg. Trace, anterior pericardial effusion. No echo indications of tamponade. Pleural effusion. Electronically signed by : Radha Linares MD 10/19/2024 00:52:25
--- NOTE | 2024-10-18 15:41 | EXP.HP ---
History of Present Illness *Admission Date: 10/18/24 *Reason for visit:: short of breath *History of present illness: Ms. Begum is an 84-year-old female who presented to cardiology clinic at the request of her PCP today. She has had worsening shortness of breath and swelling in her legs along with dyspnea with exertion since May. States that she is suffering from orthopnea, dry nonproductive cough, and does not have the energy to do normal activities that she used to enjoy. Has had intermittent response to diuretics in the outpatient setting but symptoms of gotten worse over the past month or so. Her primary care sent her to cardiology for evaluation today. Given her swelling in her legs and her dyspnea with exertion and general malaise, medicine was consulted for direct admission for suspected acute CHF. On arrival to the floor, patient has significant edema in her legs. Is pleasant but appears globally weak. supplements history. Stable on room air. Denies cassie chest pain. Currently undergoing echocardiogram, noted to have A-fib on monitor. Denies known history of A-fib or heart failure. Denies nausea or vomiting. States her legs are sore with all of the swelling and feel heavy. [facility] Disclaimer: The information contained in this section may have been updated after the patient was seen, as this information can be updated by other users. Medical History Impacted cerumen, right ear Hearing decreased Dermatitis Laceration Anxiety Cancer Lymphoma of small bowel Impacted cerumen of both ears Boil of trunk Surgical History H/O colonoscopy S/P small bowel resection S/P cataract extraction H/O breast biopsy History of cholecystectomy S/P lumbar spine operation Family History Other Cancer Diabetes Heart attack Stroke Social History Smoking Status: Never smoker alcohol intake: never substance use type: denies use current occupational status: retired Travel in the last 8 weeks?: None household members: spouse housing: house caffeine: No Have you lived/traveled outside US in past 30 days?: No Contact w/someone who lives/traveled outside US past 30 days?: No Exposure to someone with infectious disease in past 14 days?: No Do you have a fever (greater than 100.4 F or 38 C)?: No Have you tested positive for COVID-19?: No Exposed to someone with COVID-19 in past 14 days?: No Do you have a sore throat?: No Do you have a cough?: No Do you have any weakness?: No Do you have any diarrhea?: No Are you experiencing any unusual bleeding?: No Do you have any muscle aches/pain?: No Do you have any abdominal pain?: No Are you experiencing loss of taste or smell?: No Other Medical History Have you received the Flu Vaccine for this season: Yes Have you received the Pneumonia Vaccine: Yes Review of Systems Review of Systems Review of systems (narrative): 14 point review of systems performed, pertinent positives and negatives as per HPI Meds Home Medications and Allergies Home Medications ?Medication ?Instructions ?Recorded ?Confirmed ?Type Saccharomyces boulardii 250 mg 250 mg PO DAILY 12/10/22 10/18/24 History capsule (Daily Probiotic (S. boulardii)) dupilumab 100 mg/0.67 mL 200 mg (1.34 mL) SQ Q2W #1.34 mL 12/10/22 10/18/24 Rx subcutaneous syringe (Dupixent) meclizine 25 mg tablet 25 mg PO DAILY PRN dizziness 12/10/22 10/18/24 History vitamin C 45 mg-zinc citrate 3.75 1 tab PO DAILY 08/06/23 10/18/24 History mg-elderberry 50 mg chewable tablet blood pressure monitor #1 ea 09/01/23 10/18/24 Rx mecobalamin (vitamin B12) 1,000 2,000 mcg PO DAILY 12/07/23 10/18/24 History mcg chewable tablet diclofenac sodium 1 % topical gel 2 g topical QID PRN pain #100 grams 04/25/24 10/18/24 Rx (Voltaren Arthritis Pain) acetaminophen 500 mg capsule 1,000 mg (2 x 500 mg) PO Q6H PRN 06/14/24 10/18/24 Rx pain #60 caps levothyroxine 75 mcg tablet 75 mcg PO DAILY #90 tabs 07/11/24 10/18/24 Rx omeprazole 20 mg capsule,delayed 20 mg PO DAILY GERD 90 days #90 07/11/24 10/18/24 Rx release caps albuterol sulfate 90 mcg/actuation 1 inh inhalation QID PRN shortness 08/02/24 10/18/24 Rx aerosol inhaler of breath or wheezing #6.7 grams oxazepam 10 mg capsule 10 mg PO HS PRN sleep #30 caps 08/02/24 10/18/24 Rx promethazine-DM 6.25 mg-15 mg/5 mL 5 ml PO Q4-6H PRN cough #118 mL 08/02/24 10/18/24 Rx oral syrup atorvastatin 10 mg tablet See Rx Instructions .Route 09/13/24 10/18/24 Rx .COMPLEX #90 tabs cholecalciferol (vitamin D3) 50 50 mcg PO DAILY #90 caps 09/29/24 10/18/24 Rx mcg (2,000 unit) capsule meloxicam 7.5 mg tablet 7.5 mg PO DAILY #30 tabs 10/03/24 10/18/24 Rx cetirizine 10 mg tablet 10 mg PO DAILY PRN Pain, Mild 10/18/24 10/18/24 History furosemide 20 mg tablet (Lasix) 40 mg PO DAILY 10/18/24 10/18/24 History New Prescriptions to Start Prescriptions: Allergies Allergy/AdvReac Type Severity Reaction Status Date / Time lisinopril Allergy Intermediate Cough Verified 10/18/24 14:18 Exam Constitutional Constitutional: mild distress, average body habitus, chronically ill appearing and cooperative *Routine HEENT Exam Head: Present normocephalic Eye: Present EOMI and PERRL ENT: Present mucous membranes moist *Routine Neck Exam Neck: Present supple; Absent lymphadenopathy *Routine Respiratory Exam Respiratory: Present crackles (Dependent portions of lungs); Absent accessory muscle use, respiratory distress, rhonchi or wheezes *Routine Cardiovascular Exam Cardiovascular: Present murmur, tachycardia and irregularly irregular *Routine Abdominal Exam Abdominal: Present soft and normoactive bowel sounds; Absent tenderness *Routine Rectal Exam Rectal:: deferred *Routine Genitalia Exam Genitalia:: deferred *Routine Extremities Exam Extremities: Present edema (3+ to thighs); Absent cyanosis or clubbing *Routine Skin Exam Skin: Present intact and warm; Absent rash *Routine Neurological Exam Neurological: Present alert, oriented X3 and moving all extremities; Absent altered mental status Assessment and Plan *Assessment and plan (1) Acute HFrEF (heart failure with reduced ejection fraction): Status: Acute Category: Medical Code(s): I50.21 - Acute systolic (congestive) heart failure (2) Atrial fibrillation: Status: Acute Category: Medical Code(s): I48.91 - Unspecified atrial fibrillation (3) Volume overload: Status: Acute Category: Medical Code(s): E87.70 - Fluid overload, unspecified (4) Cough: Status: Acute Category: Medical Code(s): R05.9 - Cough, unspecified (5) Lower extremity edema: Status: Acute Category: Medical Code(s): R60.0 - Localized edema (6) Anxiety: Status: Acute Category: Medical Code(s): F41.9 - Anxiety disorder, unspecified (7) HTN (hypertension): Status: Acute Category: Medical Code(s): I10 - Essential (primary) hypertension (8) Hypothyroid: Status: Acute Category: Medical Code(s): E03.9 - Hypothyroidism, unspecified (9) Hyperlipidemia: Status: Acute Category: Medical Code(s): E78.5 - Hyperlipidemia, unspecified (10) GERD (gastroesophageal reflux disease): Status: Acute Category: Medical Code(s): K21.9 - Gastro-esophageal reflux disease without esophagitis (11) Fatigue: Status: Acute Category: Medical Code(s): R53.83 - Other fatigue Plan 84-year-old female with new concern for heart failure with reduced ejection fraction and A-fib. Discussed case with cardiology provider, request admission for further management initiation on goal-directed therapy. I agreed to admit for further care. Undergoing echocardiogram, EKG, diuresis. Will initiate goal-directed meds. Cardiology to evaluate and patient in the morning. Necessitating inpatient care. Problems addressed as follows: New diagnosis of HFrEF New diagnosis of A-fib Volume overload Orthopnea/dyspnea with exertion - Echo being obtained, preliminary EF 20 to 25%. Significant volume overload on exam. Will initiate Bumex 2 mg IV once. Reevaluate response and consider continuing 2 mg IV twice daily in the morning - Cardiology consulted, appreciate their recommendations - EKG obtained for formal rhythm evaluation, has A-fib on echo however. - Initiate Lovenox 1 mg/kg twice daily, no LV thrombus noted preliminarily on echo - Rate 110s. Will hold on rate controlling meds at this time pending response to diuresis at a risk for cardiogenic shock with beta-blockers. Calcium channel blockers contraindicated with CHF - Monitor on continuous telemetry Hypothyroid: TSH 8, continue levothyroxine, increase to 100 mcg daily Sleep disorder: Continue oxazepam 10 mg nightly hyperlipidemia: Lipid panel ordered for the morning. Continue Lipitor 20 mg nightly Mild anemia with hemoglobin of 10, white count 5.7. Platelets 255. Repeat CBC, CMP, magnesium ordered for the morning. Mild electrolyte disturbance with sodium 131, potassium 3.4, replace electrolytes per protocol. Kidney function normal with BUN 13, creatinine 0.8. Magnesium 1.1 Slight elevation in liver enzymes a bilirubin 1.4, AST and ALT 40-80. Suspect some hepatic congestion due to volume overload. BNP obtained 2 days ago, elevated at 17,000 Repeat CBC, CMP, magnesium ordered for the morning. Full code Therapeutic Lovenox Cardiac diet, n.p.o. at midnight
[2024-10-18 15:44] VITALS: BMI 28.3
[2024-10-18 16:00] VITALS: BP 140/100; PULSE 114; RESP 19; TEMP 36.6; O2SAT 97; BMI 28.3
[2024-10-18 17:02] LABS: Basophils # 0.1 K/mm3 (0-0.2); Basophils % 1.1 % (0.1-2.0); Eosinophils # 0.2 Kmm3 (0.0-0.4); Eosinophils % 3.2 % (0.1-12.0); Hematocrit 31.5 % (37.0-47.0); Hemoglobin 10.6 g/dL (12.2-16.2); Immature Granulocytes # 0.01 10^3uL; Immature Granulocytes % 0.2 %; Lymphocytes # 1.4 K/mm3 (0.7-4.5); Mean Corpuscular HGB Conc 33.7 g/dL (31.8-35.4); Mean Corpuscular Volume 80.2 fl (81-99); Monocytes # 0.5 K/mm3 (0.1-1.0); Monocytes % 9.5 % (1.7-9.3); Neutrophils # 3.5 K/mm3 (1.8-7.8); Nucleated Red Blood Cells # 0 10^3/uL; Nucleated Red Blood Cells % 0 %; Platelet Count 255 K/mm3 (142-424); Red Blood Count 3.93 M/mm3 (4.20-5.40); Red Cell Distribution Width 16.1 % (11.5-17.5); White Blood Count 5.7 K/mm3 (4.8-10.8)
[2024-10-18 17:04] LABS: Alanine Aminotransferase 82 U/L (12-78); Albumin Level 4.1 g/dl (3.5-5.0); Albumin/Globulin Ratio 1.6 (1.1-1.8); Alkaline Phosphatase 102 U/L (38-126); Anion Gap 12.4 mEq/L (5-15); Aspartate Amino Transferase 43 U/L (14-36); Bilirubin,Total 1.4 mg/dl (0.2-1.3); Blood Urea Nitrogen 13 mg/dl (7-17); Calcium 8.5 mg/dl (8.4-10.2); Carbon Dioxide 30 mmol/L (22.0-30.0); Chloride 92 mmol/L (98-107); Creatinine Clearance Estimated 0 mL/min (50-200); Estimated Glomerular Filt Rate 68 ml/min (>60); GFR (African American) 82 ML/MIN (>60); Globulin 2.6 g/dL (1.3-3.2); Glucose 101 mg/dl (74-100); Magnesium 1.1 mg/dl (1.6-2.3); Potassium 3.4 mmoL/L (3.5-5.1); Sodium 131 mmol/L (136-145); Total Protein,Serum 6.7 g/dl (6.3-8.2)
[2024-10-18] MEDS: DEFINITY US ECHO CONTRAST 2ML INJ 2 MG IV (17:24)
[2024-10-18] MEDS: BUMETANIDE 1MG/4ML VIAL 2 MG IV (17:48)
[2024-10-18] MEDS: ENOXAPARIN 100MG/ML SYRINGE 70 MG SUBCUT (17:50)
--- NOTE | 2024-10-18 18:26 | ECG_ITS ---
APPROVED REPORT Exam: Resting ECG HR:105 bpm ECG Measurements Heart Rate 105 AXES CA 232 P 57 QRSd 80 QRS -30 QT 330 T 89 QTc 391 Conclusion 2degree AV block - Wenkebach pattern Late R wave progression ABNORMAL ECG UNCONFIRMED REPORT Electronically signed by : Shaw Singh MD 10/19/2024 08:48:40
[2024-10-18] MEDS: MAGNESIUM SULFATE IN WATER 2 GM/50 ML PIGGYBACK IV ×2 (19:26→21:44)
[2024-10-18] MEDS: POTASSIUM CHLORIDE 20MEQ TAB 40 MEQ PO (19:26)
[2024-10-18 20:00] VITALS: BP 121/83; PULSE 103; PULSE 95; RESP 16; TEMP 36.3; O2SAT 95
[2024-10-18] MEDS: PANTOPRAZOLE 40MG TABLET 40 MG PO (20:20)
[2024-10-18] MEDS: ATORVASTATIN 10MG TABLET 20 MG PO (20:21)
[2024-10-19] VITALS (20 sets, daily range): BP systolic 110–142; BP diastolic 66–88; PULSE 87–110; RESP 14–20; TEMP 36.4–36.8; O2SAT 90–99; BMI 27.3
--- NOTE | 2024-10-19 05:41 | PC.NURSE ---
Pt A&OX4 and has tolerated room air. Lung sounds clear and bowel sounds active. 2+ edema noted to BLE. She has ambulated to the bathroom with standby assist. No complaints at this time, call light within reach.
[2024-10-19] MEDS: ENOXAPARIN 100MG/ML SYRINGE 70 MG SUBCUT (06:06)
[2024-10-19 06:43] LABS: Basophils # 0.1 K/mm3 (0-0.2); Basophils % 1.6 % (0.1-2.0); Eosinophils # 0.2 Kmm3 (0.0-0.4); Eosinophils % 4.1 % (0.1-12.0); Hematocrit 29.2 % (37.0-47.0); Immature Granulocytes # 0.02 10^3uL; Immature Granulocytes % 0.4 %; Lymphocytes # 1.4 K/mm3 (0.7-4.5); Lymphocytes % 24.9 % (10-50); Mean Corpuscular HGB Conc 32.5 g/dL (31.8-35.4); Mean Corpuscular Volume 79.8 fl (81-99); Mean Platelet Volume 10.2 fl (7.4-10.4); Monocytes # 0.6 K/mm3 (0.1-1.0); Monocytes % 10.3 % (1.7-9.3); Neutrophils # 3.3 K/mm3 (1.8-7.8); Neutrophils % 58.7 % (37.0-80.0); Nucleated Red Blood Cells # 0 10^3/uL; Nucleated Red Blood Cells % 0 %; Platelet Count 230 K/mm3 (142-424); Red Blood Count 3.66 M/mm3 (4.20-5.40); Red Cell Distribution Width-SD 46.3 fL; White Blood Count 5.6 K/mm3 (4.8-10.8)
[2024-10-19 07:33] LABS: Alanine Aminotransferase 65 U/L (12-78); Albumin Level 3.6 g/dl (3.5-5.0); Albumin/Globulin Ratio 1.6 (1.1-1.8); Alkaline Phosphatase 90 U/L (38-126); Anion Gap 10.6 mEq/L (5-15); Aspartate Amino Transferase 34 U/L (14-36); Bilirubin,Total 1.6 mg/dl (0.2-1.3); Blood Urea Nitrogen 12 mg/dl (7-17); Calcium 8.2 mg/dl (8.4-10.2); Carbon Dioxide 30 mmol/L (22.0-30.0); Chloride 93 mmol/L (98-107); Creatinine Clearance Estimated 42 mL/min (50-200); Estimated Glomerular Filt Rate 79 ml/min (>60); GFR (African American) 96 ML/MIN (>60); Globulin 2.3 g/dL (1.3-3.2); Glucose 101 mg/dl (74-100); Magnesium 1.7 mg/dl (1.6-2.3); Potassium 3.6 mmoL/L (3.5-5.1); Sodium 130 mmol/L (136-145); Total Protein,Serum 5.9 g/dl (6.3-8.2)
[2024-10-19 07:43] LABS: Hemoglobin 9.5 g/dL (12.2-16.2)
--- NOTE | 2024-10-19 08:10 | P.PN_ITS ---
Subjective *Date: 10/19/24 *Time: 21:55 Interval history: Feeling better today. Stable on room air. No nausea or vomiting. Responding well to diuresis. -750 cc since admission Medical Exam Vital signs and Labs for Last 24 Hours: Vital Signs Temp Pulse Pulse Pulse Resp BP Pulse Ox 10/19/24 06:37 10/19/24 05:00 10/19/24 04:00 98.2 F 98 H 18 126/78 94 L 10/19/24 04:00 95 H 10/19/24 03:00 10/19/24 01:00 10/19/24 00:00 97.5 F L 106 H 16 142/69 H 94 L 10/19/24 00:00 90 10/18/24 23:00 10/18/24 21:00 10/18/24 20:00 95 H 10/18/24 20:00 97.4 F L 103 H 16 121/83 95 10/18/24 20:00 10/18/24 18:34 10/18/24 17:00 10/18/24 16:00 97.9 F 114 H 19 140/100 H 97 O2 Del Method 10/19/24 06:37 Room Air 10/19/24 05:00 Room Air 10/19/24 04:00 Room Air 10/19/24 04:00 10/19/24 03:00 Room Air 10/19/24 01:00 Room Air 10/19/24 00:00 10/19/24 00:00 10/18/24 23:00 Room Air 10/18/24 21:00 Room Air 10/18/24 20:00 10/18/24 20:00 Room Air 10/18/24 20:00 Room Air 10/18/24 18:34 Room Air 10/18/24 17:00 Room Air 10/18/24 16:00 Room Air Intake and Output 10/18/24 10/19/24 10/19/24 23:59 07:59 15:59 Intake Total 360 / 460 100 / 100 Output Total 600 / 1200 600 / 600 Balance -240 / -740 -500 / -500 Intake: Intake, Oral Amount 360 / 360 Intake, Total IV Amount 100 / 100 Magnesium Sulfate in Water 2 gm 100 / 100 In 50 ml @ 50 mls/hr IV Q4H [facility] Rx#:[id number] Output: Output, Urine Amount 600 / 1200 600 / 600 Other: Number of Voids 0 Number of Unmeasured Voids 0 0 Weight 68 kg 65.544 kg Patient Weight 10/19/24 23:59 Weight 65.544 kg Laboratory Results - last 24 hr 10/18/24 16:46: WBC 5.7, RBC 3.93 L, Hgb 10.6 L, Hct 31.5 L, MCV 80.2 L, MCH 27.0, MCHC 33.7, RDW 16.1, Plt Count 255, MPV 10.0, Neut % (Auto) 61.0, Lymph % (Auto) 25.0, Cassia % (Auto) 9.5 H, Eos % (Auto) 3.2, Baso % (Auto) 1.1, Neut # (Auto) 3.5, Lymph # (Auto) 1.4, Cassia # (Auto) 0.5, Eos # (Auto) 0.2, Baso # (Au to) 0.1, Sodium 131 L, Potassium 3.4 L, Chloride 92 L, Carbon Dioxide 30, Anion Gap 12.4, BUN 13, Creatinine 0.80, Estimated Creat Clear 0, Estimated GFR 68, Est GFR ( Amer) 82, Glucose 101 H, Calcium 8.5, Magnesium 1.1 L, Total Bilirubin 1.4 H, AST 43 H, ALT 82 H, Alkaline Phosphatase 102, Total Protein 6.7, Albumin 4.1, Globulin 2.6, Albumin/Globulin Ratio 1.6, TSH 8.60 H 10/19/24 05:57: WBC 5.6, RBC 3.66 L, Hgb 9.5 L D, Hct 29.2 L, MCV 79.8 L, MCH 26.0 L, MCHC 32.5, RDW 16.0, Plt Count 230, MPV 10.2, Neut % (Auto) 58.7, Lymph % (Auto) 24.9, Cassia % (Auto) 10.3 H, Eos % (Auto) 4.1, Baso % (Auto) 1.6, Neut # (Auto) 3.3, Lymph # (Auto) 1.4, Cassia # (Auto) 0.6, Eos # (Auto) 0.2, Baso # (Auto) 0.1, Sodium 130 L, Potassium 3.6, Chloride 93 L, Carbon Dioxide 30, Anion Gap 10.6, BUN 12, Creatinine 0.70, Estimated Creat Clear 42, Estimated GFR 79, Est GFR ( Amer) 96, Glucose 101 H, Calcium 8.2 L, Magnesium 1.7 D, Total Bilirubin 1.6 H, AST 34, ALT 65, Alkaline Phosphatase 90, Total Protein 5.9 L, Albumin 3.6 D, Globulin 2.3, Albumin/Globulin Ratio 1.6 I & O for Labs for Last 24 Hours: Intake & Output 10/16/24 10/17/24 10/18/24 10/19/24 23:59 23:59 23:59 23:59 Intake Total 360 / 460 100 / 100 Output Total 600 / 1200 600 / 600 Balance -240 / -740 -500 / -500 Weight 68 kg 65.544 kg Constitutional: Present no acute distress, average body habitus and cooperative Head: Present atraumatic and normocephalic ENT: Present normal exam Respiratory: Present normal respiratory effort; Absent rhonchi, wheezes or crackles Cardiac: Present Reg Rate and Rhythm and Systolic Murmur GI: Present normal bowel sounds; Absent tenderness Extremities: Present normal inspection, full ROM and edema (Edema improving, 1+ bilaterally) Skin: Present intact; Absent erythema Neuro: Present Grossly Intact, alert, awake, oriented x 3 and moves all extremities Assessment and Plan *Assessment and plan (1) Acute HFrEF (heart failure with reduced ejection fraction): Status: Acute Category: Medical Code(s): I50.21 - Acute systolic (congestive) heart failure (2) Atrial fibrillation: Status: Deleted Category: Medical Code(s): I48.91 - Unspecified atrial fibrillation (3) Volume overload: Status: Acute Category: Medical Code(s): E87.70 - Fluid overload, unspecified (4) Cough: Status: Acute Category: Medical Code(s): R05.9 - Cough, unspecified (5) Lower extremity edema: Status: Acute Category: Medical Code(s): R60.0 - Localized edema (6) Anxiety: Status: Acute Category: Medical Code(s): F41.9 - Anxiety disorder, unspecified (7) HTN (hypertension): Status: Acute Category: Medical Code(s): I10 - Essential (primary) hypertension (8) Hypothyroid: Status: Acute Category: Medical Code(s): E03.9 - Hypothyroidism, unspecified (9) Hyperlipidemia: Status: Acute Category: Medical Code(s): E78.5 - Hyperlipidemia, unspecified (10) GERD (gastroesophageal reflux disease): Status: Acute Category: Medical Code(s): K21.9 - Gastro-esophageal reflux disease without esophagitis (11) Fatigue: Status: Acute Category: Medical Code(s): R53.83 - Other fatigue Plan 84-year-old female with new concern for heart failure with reduced ejection fraction and A-fib. Discussed case with cardiology provider, request admission for further management initiation on goal-directed therapy. I agreed to admit for further care. Echo obtained with reduced EF and severe diastolic dysfunction. Continue diuresis. Cardiology assisting with care. Continues to require inpatient management. Problems addressed as follows: New diagnosis of HFrEF A-fib ruled out Volume overload Orthopnea/dyspnea with exertion - Echo obtained with severe reduction in EF, EF of 20%. Grade 3 diastolic dysfunction. Akinesis of distal and apical LV freed. Taken for heart cath today, no obstructive coronary disease. Will continue aggressive diuresis - Discussed case with cardiology today, Continue aspirin 81 mg daily. Continue Bumex 2 mg IV twice daily - Will need LifeVest prior to discharge home. Consider cardiac MRI. LDL goal less than 55, lipid panel ordered for the morning. Continue low-dose Lipitor. - No indication for anticoagulation. EKG shows sinus tachycardia with frequent PACs. Hypothyroid: TSH 8, continue levothyroxine, increased to 100 mcg daily Sleep disorder: Continue oxazepam 10 mg nightly hyperlipidemia: Lipid panel ordered for the morning. Continue Lipitor 20 mg nightly Mild anemia with hemoglobin of 10, white count 5.7. Platelets 255. Repeat CBC, CMP, magnesium ordered for the morning. Mild electrolyte disturbance with sodium 131, potassium 3.4, replace electrolytes per protocol. Kidney function normal with BUN 13, creatinine 0.8. Magnesium 1.1 Liver enzymes better today. Repeat CMP, CBC, magnesium ordered for the morning Full code Therapeutic Lovenox Cardiac diet
[2024-10-19] MEDS: LEVOTHYROXINE 100MCG (0.1MG) TAB 100 MCG PO (08:50)
[2024-10-19 09:57] LABS: Troponin I 0.04 ng/ml (0.00-0.034)
--- NOTE | 2024-10-19 11:14 | HMH.PTEV ---
Physical Therapy Evaluation Rehab PT IP Evaluation Start: 10/19/24 10:24 Freq: ONCE Status: Active Protocol: Document 10/19/24 11:05 SRIRAM (Rec: 10/19/24 11:14 SRIRAM [id number]) Subjective/History History History Per H&P: Ms. Begum is an 84 -year-old female who presented to cardiology clinic at the request of her PCP today. She has had worsening shortness of breath and swelling in her legs along with dyspnea with exertion since May. States that she is suffering from orthopnea, dry nonproductive cough, and does not have the energy to do normal activities that she used to enjoy. Has had intermittent response to diuretics in the outpatient setting but symptoms of gotten worse over the past month or so. Her primary care sent her to cardiology for evaluation today. Given her swelling in her legs and her dyspnea with exertion and general malaise, medicine was consulted for direct admission for suspected acute CHF. On arrival to the floor, patient has significant edema in her legs. Is pleasant but appears globally weak. supplements history. Stable on room air. Denies cassie chest pain. Currently undergoing echocardiogram, noted to have A-fib on monitor . Denies known history of A- fib or heart failure. Denies nausea or vomiting. States her legs are sore with all of the swelling and feel heavy. Subjective Subjective Pt reports she lives in a single-story home with her . Pt has one [place] home. Pt normally IND with mobility without AD use. Pt reports worsening weakness. New diagnosis of cancer in past 12 No months? [facility] How much help from another person do you currently need... Turning from your back to your side None while in a flat bed without using bedrails? Moving from lying on back to sitting on None the side of a flat bed without using bedrails? Moving to and from a bed to a chair ( A little including a wheelchair)? Standing up from a chair using your arms A little ? (e.g., wheelchair, bedside chair) Walking in hospital room? A little Climbing 3-5 steps with a railing? A little Mobility Score 20 Mobility Level [facility] Mobility Calculator Mobility 6 Walk 10 steps or more Rehab PT IP Eval Objective Appearance Patient Behavior Appropriate,Cooperative Patient Orientation Situation Difficulty following instructions none Speech Pattern Clear Ambulation Patient Able to Ambulate Yes Ambulation Observation IP General Gait Pattern Observation Narrow Based Gait Ambulation Distance (feet) 25 Ambulation Assistive Device None Ambulation Ability Contact Guard/Hand Hold Balance Ability to Arise Able, uses arms to help Sitting Balance Steady, safe Standing Balance Steady, wide stance Dynamic Sitting Balance Ability Normal Dynamic Standing Balance Ability Fair Transfers Bed Transfer Ability Contact Guard/Hand Hold Chair Transfer Ability Minimal x 1 (25% assist) Sit to Stand Bed Transfer Ability Contact Guard/Hand Hold Rehab PT IP prob,goals,plan Problems Date of Evaluation: 10/19/24 PT IP Problems Transfers,Gait,Balance,Self care,Safety Rehab Potential Rehab Potential Good Equipment Needs Assistive Devices Rolling / Wheeled Walker Plan PT Intervention Plan Transfers,Gait,Balance,Self care,Safety,Therapeutic Exercise Other Intervention Plan 1-2 times PT Plan Frequency Daily Duration LOS Discharge Goals Bed Transfer Ability Supervision/Stand by Sit to Stand Chair Transfer Ability Supervision/Stand by Discharge Plan PT Discharge Plan Initial physical therapy evaluation performed. Patient presents below baseline at this time in functional mobility, transfers, gait, and strength. Pt would benefit from skilled PT while at [facility] to prevent further functional decline and maximize safety with mobility. PT educated pt on using RW or rollator d/t balance deficits. Pt most appropriate to d/c home when deemed medically necessary d/t current level of mobility, home set-up, and family support. PT recommending outpatient or PT services to address deficits. Eval Complexity Eval Charge Codes 59628 - Moderate Complexity PHYSICIAN CERTIFICATION: I certify the specified therapy services for Kim Begum are required, authorized, and reviewed every 30 days.
[2024-10-19] MEDS: BUMETANIDE 1MG/4ML VIAL 2 MG IV ×2 (11:35→22:26)
[2024-10-19] MEDS: MAGNESIUM SULFATE IN WATER 2 GM/50 ML PIGGYBACK IV ×2 (11:35→14:32)
--- NOTE | 2024-10-19 11:51 | IR_ITS ---
APPROVED REPORT Patient Location: Inpatient PROCEDURES Left heart catheterization Left ventriculogram Selective coronary angiogram INDICATION Acute non-ST elevation myocardial infarction, New onset cardiomyopathy ejection fraction 25% Informed consent was obtained prior to the procedure. COMPLICATIONS none Estimated Blood Loss: less than 10ml TECHNIQUE One percent lidocaine used to anesthetize the right anterior aspect of the wrist. The right radial artery was accessed via the Seldinger technique. A 6 Qatari sheath was placed in the right radial artery. 2.5 mg of Verapamil, 800 mcg of nitroglycerin, 1mg Lidocaine and 5000 U Heparin were given through the arterial sheath. The JL3 catheter was also used to perform left heart catheterization, left ventriculogram and selective coronary angiogram. At the end of the procedure the sheath was removed good hemostasis was achieved using Traclet band, patient was transferred to the postop holding area in stable condition. ANGIOGRAPHIC RESULTS The left main artery Normal The left anterior descending artery Mild diffuse proximal mid vessel 10% luminal regularities The circumflex artery Normal The right coronary artery Dominant normal The DRISCOLL ventriculogram reveals Dilated ventricle anterior wall hypokinesis estimate ejection fraction 25% The left ventricular end-diastolic pressure 25 to 30 mmHg 5 mm transaortic gradient upon pullback with a 6 Qatari catheter IMPRESSION Mild luminal irregularities all of which are nonocclusive Reduced ejection fraction with regional wall motion abnormality Elevated LVEDP 5 mm trans stenotic gradient PLAN 1. Medical management for LV dysfunction with GDMT 2. Recommend dobutamine echo to better determine if low output low gradient aortic stenosis is present 3. Consider outpatient cardiac MRI 4. Consider LifeVest Electronically signed by : Justyn Blackman MD 10/19/2024 15:13:21
--- NOTE | 2024-10-19 12:26 | PC.NURSE ---
pt is brought down to heart cath for procedure at 1227
[2024-10-19] MEDS: LIDOCAINE 1% 10ML MDV 10 ML IJ (12:35)
[2024-10-19] MEDS: 0.9 % SODIUM CHLORIDE 500 ML 25 ML IV (12:36)
[2024-10-19] MEDS: NITROGLYCERIN 800MCG/8ML SYR (CATH LAB) 800 MCG IA (12:36)
[2024-10-19] MEDS: VERAPAMIL 2.5MG/ML 2ML VIAL 2.5 MG IV (12:36)
[2024-10-19] MEDS: HEPARIN 1,000 UNITS/ML 10ML VIAL (CATH LAB) 5000 UNIT IV (12:36)
[2024-10-19] MEDS: diphenhydrAMINE 50MG/ML VIAL 50 MG IV (12:36)
[2024-10-19] MEDS: HEPARIN 1,000 UNITS/500ML NS (CATH LAB) 3000 UNIT IV (12:36)
[2024-10-19] MEDS: FENTANYL 100MCG/2ML VIAL 50 MCG IV (13:14)
[2024-10-19] MEDS: MIDAZOLAM HCL 1MG/ML 5ML VIAL 1 MG IV (13:14)
--- NOTE | 2024-10-19 13:30 | PC.NURSE ---
patient not in room, in [employer]
[2024-10-19] MEDS: IOPAMIDOL-370 (76%);100ML BOTTLE 50 ML IV (13:39)
--- NOTE | 2024-10-19 18:23 | PC.NURSE ---
PATIENT A/O X4. HAD A LEFT HEART CATH THIS SHIFT. NO C/O PAIN. RADIAL BAND REMOVED AND GAUZE AND TEGADERM APPLIED. PATIENT CURRENTLY USING PW AT PATIENTS REQUEST DUE TO DIURESING. VSS. TOLERATING CARDIAC DIET. CALL LIGHT WITHIN REACH, FAMILY AT BEDSIDE. NO FURTHER REQUESTS AT THIS TIME.
[2024-10-19] MEDS: ENOXAPARIN 80MG/0.8ML SYRINGE 65 MG SUBCUT (18:30)
--- NOTE | 2024-10-19 20:14 | EXP.CARD.CON ---
History of Present Illness History of Present Illness Consult date: 10/19/24 Requesting physician: Pete Lin Consult reason: chest pain, congestive heart failure and shortness of breath Chief complaint: SOA, CP History of present illness: This is an 84-year-old female who presented to cardiology clinic yesterday from her primary care provider's office due to worsening shortness of breath, lower extremity edema and chest pain since May. The patient states that she has had intermittent episodes of severe chest pain with associated orthopnea and a dry nonproductive cough since May. She states some days her symptoms are severe and some days her symptoms have not been so bad. She states that she has been dealing with this since May. She states that she has been on diuretics intermittently on an outpatient basis with little improvement in her symptoms significantly worsened in the last month. She states that she does have pressure in her chest at times associated with the shortness of breath. She cannot lie flat because of the shortness of breath. She states that she feels like she is coughing all the time and it would just not go away. In cardiology clinic to the patient was found to have an elevated BNP and was subsequently admitted to the hospital for an acute exacerbation of CHF. Her echocardiogram showed her ejection fraction is 20%. She states that diuretics overnight has helped improve her shortness of breath significantly. She is still short of breath but it is much better. Her edema has resolved. She denies any fever, chills, nausea, vomiting or diarrhea. [facility] Disclaimer: The information contained in this section may have been updated after the patient was seen, as this information can be updated by other users. Medical History (Updated 10/19/24 @ 20:19 by Lori Castellanos APRN) Aortic stenosis Coronary artery disease Non-STEMI (non-ST elevated myocardial infarction) Impacted cerumen, right ear Hearing decreased Dermatitis Laceration Anxiety Cancer Lymphoma of small bowel Impacted cerumen of both ears Boil of trunk Surgical History H/O colonoscopy S/P small bowel resection S/P cataract extraction H/O breast biopsy History of cholecystectomy S/P lumbar spine operation Family History Other Cancer Diabetes Heart attack Stroke Social History Smoking Status: Never smoker alcohol intake: never substance use type: denies use current occupational status: retired Travel in the last 8 weeks?: None household members: spouse housing: house caffeine: No Have you lived/traveled outside [place] in past 30 days?: No Contact w/someone who lives/traveled outside [place] past 30 days?: No Exposure to someone with infectious disease in past 14 days?: No Do you have a fever (greater than 100.4 F or 38 C)?: No Have you tested positive for COVID-19?: No Exposed to someone with COVID-19 in past 14 days?: No Do you have a sore throat?: No Do you have a cough?: No Do you have any weakness?: No Do you have any diarrhea?: No Are you experiencing any unusual bleeding?: No Do you have any muscle aches/pain?: No Do you have any abdominal pain?: No Are you experiencing loss of taste or smell?: No Review of Systems Review of Systems Review of systems:: pertinent systems reviewed and negative unless documented below Constitutional Constitutional: Reports system reviewed and no additional complaints, except as documented, Reports fatigue and Reports lethargy Eyes Eyes: Reports system reviewed and no additional complaints, except as documented ENT Ears, Nose, Mouth, and Throat: Reports system reviewed and no additional complaints, except as documented *Cardiovascular Cardiovascular: Reports system reviewed and no additional complaints, except as documented, Reports chest pain, Reports chest pain at rest, Reports chest pain with activity, Reports dyspnea, Reports dyspnea on exertion, Reports leg edema, Reports orthopnea and Reports pedal edema *Respiratory Respiratory: Reports system reviewed and no additional complaints, except as documented, Reports cough, Reports dyspnea and Reports dyspnea on exertion *Gastrointestinal Gastrointestinal: Reports system reviewed and no additional complaints, except as documented *Musculoskeletal Musculoskeletal: Reports system reviewed and no additional complaints, except as documented Integumentary/Breasts Skin/Breast: Reports system reviewed and no additional complaints, except as documented *Neurologic Neurologic: Reports system reviewed and no additional complaints, except as documented Psychiatric Psychiatric: Reports system reviewed and no additional complaints, except as documented Endocrine Endocrine: Reports system reviewed and no additional complaints, except as documented and Reports fatigue Hematologic/Lymphatic Hematologic/Lymphatic: Reports system reviewed and no additional complaints, except as documented Allergic/Immunologic Allergic/Immunologic: Reports system reviewed and no additional complaints, except as documented Exam Data for Last 24 hours Vital signs and Labs for Last 24 Hours: Temp Pulse Resp BP Pulse Ox O2 Del Method O2 Flow Rate 97.5 F L 93 H 18 110/67 93 L Room Air 3 10/19/24 16:35 10/19/24 17:35 10/19/24 17:35 10/19/24 17:35 10/19/24 17:35 10/19/24 18:22 10/19/24 13:35 Laboratory Results - last 24 hr 10/19/24 05:57: WBC 5.6, RBC 3.66 L, Hgb 9.5 L D, Hct 29.2 L, MCV 79.8 L, MCH 26.0 L, MCHC 32.5, RDW 16.0, Plt Count 230, MPV 10.2, Neut % (Auto) 58.7, Lymph % (Auto) 24.9, [place] % (Auto) 10.3 H, Eos % (Auto) 4.1, Baso % (Auto) 1.6, Neut # (Auto) 3.3, Lymph # (Auto) 1.4, [place] # (Auto) 0.6, Eos # (Auto) 0.2, Baso # (Auto) 0.1, Sodium 130 L, Potassium 3.6, Chloride 93 L, Carbon Dioxide 30, Anion Gap 10.6, BUN 12, Creatinine 0.70, Estimated Creat Clear 42, Estimated GFR 79, Est GFR ( Amer) 96, Glucose 101 H, Calcium 8.2 L, Magnesium 1.7 D, Total Bilirubin 1.6 H, AST 34, ALT 65, Alkaline Phosphatase 90, Total Protein 5.9 L, Albumin 3.6 D, Globulin 2.3, Albumin/Globulin Ratio 1.6 10/19/24 09:14: Troponin I 0.04 H I & O for Last 24 hours: Intake & Output 10/16/24 10/17/24 10/18/24 10/19/24 23:59 23:59 23:59 23:59 Intake Total 360 / 460 310 / 310 Output Total 600 / 1200 1001 / 1001 Balance -240 / -740 -691 / -691 Weight 149 lb 14.629 oz 144 lb 8 oz Constitutional Constitutional: no acute distress and average body habitus *Routine HEENT Exam Head: Present normocephalic and atraumatic ENT: Present mucous membranes moist *Routine Neck Exam Neck: Present supple, full ROM and normal carotid upstroke; Absent JVD, carotid bruit or lymphadenopathy *Routine Respiratory Exam Respiratory: Present CTA bilaterally, normal respiratory effort, able to speak in complete sentences and symmetric chest movement *Routine Cardiovascular Exam Cardiovascular: Present RRR, Normal S1, Normal S2 and murmur; Absent gallop *Routine Abdominal Exam Abdominal: Present soft and normoactive bowel sounds; Absent tenderness, distended or organomegaly *Routine Extremities Exam Extremities: Present full ROM, pulses intact and normal capillary refill; Absent cyanosis, clubbing or edema *Routine Skin Exam Skin: Present intact and warm; Absent erythema *Routine Neurological Exam Neurological: Present alert, oriented X3 and CN II-XII intact; Absent sensory deficit or motor deficit Routine Psychiatric Exam Psychiatric: Present normal affect Meds Home Medications and Allergies Home Medications ?Medication ?Instructions ?Recorded ?Confirmed ?Type Saccharomyces boulardii 250 mg 250 mg PO DAILY 12/10/22 10/18/24 History capsule (Daily Probiotic (S. boulardii)) dupilumab 100 mg/0.67 mL 200 mg (1.34 mL) SQ Q2W #1.34 mL 12/10/22 10/18/24 Rx subcutaneous syringe (Dupixent) vitamin C 45 mg-zinc citrate 3.75 1 tab PO DAILY 08/06/23 10/18/24 History mg-elderberry 50 mg chewable tablet blood pressure monitor #1 ea 09/01/23 10/18/24 Rx mecobalamin (vitamin B12) 1,000 2,000 mcg PO DAILY 12/07/23 10/18/24 History mcg chewable tablet acetaminophen 500 mg capsule 1,000 mg (2 x 500 mg) PO Q6H PRN 06/14/24 10/18/24 Rx pain #60 caps levothyroxine 75 mcg tablet 75 mcg PO DAILY #90 tabs 07/11/24 10/18/24 Rx omeprazole 20 mg capsule,delayed 20 mg PO DAILY GERD 90 days #90 07/11/24 10/18/24 Rx release caps albuterol sulfate 90 mcg/actuation 1 inh inhalation QID PRN shortness 08/02/24 10/18/24 Rx aerosol inhaler of breath or wheezing #6.7 grams oxazepam 10 mg capsule 10 mg PO HS PRN sleep #30 caps 08/02/24 10/18/24 Rx cholecalciferol (vitamin D3) 50 50 mcg PO DAILY #90 caps 09/29/24 10/18/24 Rx mcg (2,000 unit) capsule meloxicam 7.5 mg tablet 7.5 mg PO DAILY #30 tabs 10/03/24 10/18/24 Rx cetirizine 10 mg tablet 10 mg PO DAILY PRN Allergic 10/18/24 10/18/24 History Symptoms furosemide 20 mg tablet (Lasix) 20 mg PO DAILY 10/18/24 10/19/24 History atorvastatin 10 mg tablet 10 mg PO HS 10/19/24 10/19/24 History irbesartan 150 mg tablet 150 mg PO DAILY 10/19/24 10/19/24 History New Prescriptions to Start Prescriptions: Allergies Allergy/AdvReac Type Severity Reaction Status Date / Time lisinopril Allergy Intermediate Cough Verified 10/18/24 14:18 Assessment and Plan *Assessment and plan (1) Acute HFrEF (heart failure with reduced ejection fraction): Status: Acute Category: Medical Code(s): I50.21 - Acute systolic (congestive) heart failure (2) Dyspnea: Status: Acute Qualifiers: Dyspnea type: shortness of breath Qualified Code(s): R06.02 - Shortness of breath Category: Medical Code(s): R06.00 - Dyspnea, unspecified (3) Non-STEMI (non-ST elevated myocardial infarction): Status: Acute Category: Medical Code(s): I21.4 - Non-ST elevation (NSTEMI) myocardial infarction (4) Coronary artery disease: Status: Acute Qualifiers: Associated angina: without angina Coronary Disease-Associated Artery/Lesion type: [place] artery [place] vs. transplanted heart: [place] heart Qualified Code(s): I25.10 - Atherosclerotic heart disease of [place] coronary artery without angina pectoris Category: Medical Code(s): I25.10 - Atherosclerotic heart disease of [place] coronary artery without angina pectoris (5) Aortic stenosis: Status: Acute Qualifiers: Cardiac valve disease etiology: etiology unspecified Qualified Code(s): I35.0 - Nonrheumatic aortic (valve) stenosis Category: Medical Code(s): I35.0 - Nonrheumatic aortic (valve) stenosis (6) Cough: Status: Acute Qualifiers: Cough type: acute Qualified Code(s): R05.1 - Acute cough Category: Medical Code(s): R05.9 - Cough, unspecified Plan Plan: 1. The patient was admitted to the hospital with acute HFrEF. Her ejection fraction was found to be 20% on echocardiogram. The patient will need aggressive diuresis. Will put the patient on Bumex 2 mg IV twice daily for continued diuresis. 2. The patient will need to be started on GDMT. Will likely start her on Entresto and a beta-omar tomorrow. 3. Consider Jardiance once she is more euvolemic. 4. The patient underwent left cardiac catheterization today due to her elevated troponin consistent with a non-STEMI and new onset cardiomyopathy. The patient was found to have mild nonocclusive coronary artery disease. 5. recommend aspirin 81 mg daily. 6. The patient has low-flow low gradient severe aortic stenosis on echocardiogram. However left cardiac catheterization did not show much of a gradient when the aortic valve was crossed. There is a discrepancy here about the degree of her aortic stenosis. On an outpatient basis, the patient will need a dobutamine stress echocardiogram to further evaluate the severity of her aortic stenosis. 7. She will also likely benefit from a cardiac MRI on an outpatient basis due to her new onset cardiomyopathy and aortic stenosis. 8. As mentioned above we will continue with the diuresis at this time for her acute HFrEF and start her on GDMT tomorrow. 9. The patient does have severe LV dysfunction. She is an increased risk for sudden cardiac due to her severe LV dysfunction. The patient will need a LifeVest in place prior to discharge home. Will get a LifeVest ordered. 10 her blood pressure is well-controlled. 11. Her LDL goal is less than 55. Will get a lipid panel in the morning. She has been started on low-dose Lipitor due to her non-STEMI. 12. Atrial fibrillation was documented. Telemetry strips and EKGs were reviewed by cardiology today no atrial fibrillation. The patient was having sinus tachycardia with frequent PACs. She does not need to be anticoagulated at this time as there is no evidence of atrial fibrillation per Dr. Garcia. 13. Further recommendations will be made pending the patient's response to treatment. Thank you for the opportunity to help participate in the care of this patient. All recommendations and orders are per Dr. Linares.
[2024-10-19] MEDS: PANTOPRAZOLE 40MG TABLET 40 MG PO (21:12)
[2024-10-19] MEDS: ATORVASTATIN 20MG TABLET 20 MG PO (21:12)
[2024-10-20] VITALS: BP 110/74; PULSE 109; PULSE 110; RESP 16; TEMP 36.8; O2SAT 96
[2024-10-20 04:00] VITALS: BP 120/88; PULSE 104; PULSE 90; RESP 16; TEMP 36.4; O2SAT 93; BMI 25.5
--- NOTE | 2024-10-20 06:04 | PC.NURSE ---
v/s, ox4. Pt frequently sought out nursing staff. Pt was NPO at midnight. No acute events to report. Plan of care ongoing.
[2024-10-20] MEDS: LEVOTHYROXINE 100MCG (0.1MG) TAB 100 MCG PO (06:54)
[2024-10-20 06:58] LABS: Alanine Aminotransferase 56 U/L (12-78); Albumin Level 3.5 g/dl (3.5-5.0); Albumin/Globulin Ratio 1.6 (1.1-1.8); Alkaline Phosphatase 84 U/L (38-126); Anion Gap 8.2 mEq/L (5-15); Aspartate Amino Transferase 38 U/L (14-36); Bilirubin,Total 1.8 mg/dl (0.2-1.3); Blood Urea Nitrogen 13 mg/dl (7-17); Carbon Dioxide 33 mmol/L (22.0-30.0); Chloride 91 mmol/L (98-107); Creatinine Clearance Estimated 39 mL/min (50-200); Estimated Glomerular Filt Rate 68 ml/min (>60); GFR (African American) 82 ML/MIN (>60); Globulin 2.2 g/dL (1.3-3.2); Glucose 98 mg/dl (74-100); Magnesium 1.8 mg/dl (1.6-2.3); Potassium 3.2 mmoL/L (3.5-5.1); Sodium 129 mmol/L (136-145); Total Protein,Serum 5.7 g/dl (6.3-8.2)
[2024-10-20 07:09] LABS: Basophils # 0.1 K/mm3 (0-0.2); Basophils % 1.4 % (0.1-2.0); Eosinophils # 0.1 Kmm3 (0.0-0.4); Eosinophils % 2.4 % (0.1-12.0); Hemoglobin 9.5 g/dL (12.2-16.2); Immature Granulocytes # 0.02 10^3uL; Immature Granulocytes % 0.4 %; Lymphocytes # 1.4 K/mm3 (0.7-4.5); Lymphocytes % 25.4 % (10-50); Mean Corpuscular HGB Conc 32.8 g/dL (31.8-35.4); Mean Corpuscular Volume 79.2 fl (81-99); Mean Platelet Volume 10.6 fl (7.4-10.4); Monocytes # 0.7 K/mm3 (0.1-1.0); Monocytes % 12.3 % (1.7-9.3); Neutrophils # 3.2 K/mm3 (1.8-7.8); Neutrophils % 58.1 % (37.0-80.0); Nucleated Red Blood Cells # 0 10^3/uL; Nucleated Red Blood Cells % 0 %; Platelet Count 222 K/mm3 (142-424); Red Blood Count 3.66 M/mm3 (4.20-5.40); Red Cell Distribution Width 16.1 % (11.5-17.5); White Blood Count 5.5 K/mm3 (4.8-10.8)
[2024-10-20 07:23] LABS: Chol/HDL Ratio 2.6 (1-3.5); Cholesterol 87 mg/dl (140-200); HDL Cholesterol 34 mg/dl (40-60); Triglycerides 55 mg/dl (30-150); VLDL Cholesterol 11 mg/dL (0-40)
[2024-10-20 07:34] LABS: Direct LDL Cholesterol 49.81 mg/dL (100-129)
--- NOTE | 2024-10-20 07:56 | P.DS_ITS ---
General Admission date:: 10/18/24 Discharge date: 10/20/24 HPI HPI HPI: Ms. Begum is an 84-year-old female who presented to cardiology clinic at the request of her PCP today. She has had worsening shortness of breath and swelling in her legs along with dyspnea with exertion since May. States that she is suffering from orthopnea, dry nonproductive cough, and does not have the energy to do normal activities that she used to enjoy. Has had intermittent response to diuretics in the outpatient setting but symptoms of gotten worse over the past month or so. Her primary care sent her to cardiology for e valuation today. Given her swelling in her legs and her dyspnea with exertion and general malaise, medicine was consulted for direct admission for suspected acute CHF. On arrival to the floor, patient has significant edema in her legs. Is pleasant but appears globally weak. supplements history. Stable on room air. Denies cassie chest pain. Currently undergoing echocardiogram, noted to have A- fib on monitor. Denies known history of A-fib or heart failure. Denies nausea or vomiting. States her legs are sore with all of the swelling and feel heavy. Hospital Course Hospital Course Hospital Course: 84-year-old female with new concern for heart failure with reduced ejection fraction and A-fib. Discussed case with cardiology provider, request admission for further management initiation on goal-directed therapy. I agreed to admit for further care. Echo obtained with reduced EF and severe diastolic dysfunction. Initiated on aggressive diuresis. Was evaluated with heart cath, did not have flow-limiting disease. No stents placed. Aggressively addressed medical management of heart failure. Overall doing better. Stable discharge home with further management as an outpatient. LifeVest provided prior to discharge. Problems addressed as follows: New diagnosis of HFrEF A-fib ruled out Volume overload Orthopnea/dyspnea with exertion - Presenting with shortness of breath, swelling in legs, dyspnea with exertion. Echo obtained with severe reduction in EF, EF of 20%. Grade 3 diastolic dysfunction. Akinesis of distal and apical LV freed. Taken for heart cath with no obstructive coronary disease. Will continue aggressive diuresis. Cardiology assisted with care during management. Continue aspirin 81 mg daily, continue Bumex 2 mg daily, Farxiga 10 mg daily, metoprolol succinate 12.5. Meeting criteria for LifeVest prior to discharge home. Cardiology recommends outpatient cardiac MRI. No indication for anticoagulation. EKG shows sinus tachycardia with frequent PACs. Hypothyroid: TSH 8, continue levothyroxine, increased to 100 mcg daily Sleep disorder: Continue oxazepam 10 mg nightly Hyperlipidemia: Continue Lipitor 20 mg nightly. LDL goal less than 55 Mild anemia with hemoglobin of 10, white count 5.7. Platelets 255. repeat labs at follow-up Liver enzymes initially elevated. Improved with diuresis. Therapy evaluated. Recommend outpatient rehab.Total time spent on discharge 37 minutes in counseling, documentation, chart review, and direct care with patient. Exam Data for Last 24 hours Vital signs and Labs for Last 24 Hours: Temp Pulse Resp BP Pulse Ox O2 Del Method O2 Flow Rate 97.5 F L 104 H 16 120/88 93 L Room Air 3 10/20/24 04:00 10/20/24 04:00 10/20/24 04:00 10/20/24 04:00 10/20/24 04:00 10/20/24 05:48 10/19/24 13:35 Laboratory Results - last 24 hr 10/19/24 09:14: Troponin I 0.04 H 10/20/24 06:08: WBC 5.5, RBC 3.66 L, Hgb 9.5 L, Hct 29.0 L, MCV 79.2 L, MCH 26.0 L, MCHC 32.8, RDW 16.1, Plt Count 222, MPV 10.6 H, Neut % (Auto) 58.1, Lymph % (Auto) 25.4, Cameron % (Auto) 12.3 H, Eos % (Auto) 2.4, Baso % (Auto) 1.4, Neut # (Auto) 3.2, Lymph # (Auto) 1.4, Cameron # (Auto) 0.7, Eos # (Auto) 0.1, Baso # (Auto) 0.1, Sodium 129 L, Potassium 3.2 L, Chloride 91 L, Carbon Dioxide 33 H, Anion Gap 8.2, BUN 13, Creatinine 0.80, Estimated Creat Clear 39, Estimated GFR 68, Est GFR ( Amer) 82, Glucose 98, Calcium 8.0 L, Magnesium 1.8, Total Bilirubin 1.8 H, AST 38 H, ALT 56, Alkaline Phosphatase 84, Total Protein 5.7 L, Albumin 3.5, Globulin 2.2, Albumin/Globulin Ratio 1.6, Triglycerides 55, Cholesterol 87 L, VLDL Cholesterol 11, HDL Cholesterol 34 L, Cholesterol/HDL Ratio 2.6 I & O for Last 24 hours: Intake & Output 10/17/24 10/18/24 10/19/24 10/20/24 23:59 23:59 23:59 23:59 Intake Total 360 / 460 310 / 430 120 / 120 Output Total 600 / 1200 1001 / 1001 0 / 0 Balance -240 / -740 -691 / -571 120 / 120 Weight 68 kg 65.544 kg 61.377 kg Constitutional Constitutional: no acute distress, average body habitus, chronically ill appearing and cooperative *Routine HEENT Exam Head: Present normocephalic Eye: Present EOMI and PERRL ENT: Present mucous membranes moist *Routine Neck Exam Neck: Present supple; Absent lymphadenopathy *Routine Respiratory Exam Respiratory: Present CTA bilaterally; Absent rhonchi or wheezes *Routine Cardiovascular Exam Cardiovascular: Present RRR *Routine Abdominal Exam Abdominal: Present soft and normoactive bowel sounds; Absent tenderness *Routine Rectal Exam Patient deferred: visual exam *Routine Exam Patient deferred: external exam *Routine Extremities Exam Extremities: Absent cyanosis, clubbing or edema *Routine Skin Exam Skin: Present warm; Absent rash *Routine Neurological Exam Neurological: Present alert, oriented X3 and moving all extremities; Absent altered mental status Results Data Completed and Pending Labs on day of discharge: Labs from last 24 hours 10/20/24 10/19/24 06:08 09:14 WBC 5.5 RBC 3.66 L Hgb 9.5 L Hct 29.0 L MCV 79.2 L MCH 26.0 L MCHC 32.8 RDW 16.1 Plt Count 222 MPV 10.6 H Neut % (Auto) 58.1 Lymph % (Auto) 25.4 Cameron % (Auto) 12.3 H Eos % (Auto) 2.4 Baso % (Auto) 1.4 Neut # (Auto) 3.2 Lymph # (Auto) 1.4 Cameron # (Auto) 0.7 Eos # (Auto) 0.1 Baso # (Auto) 0.1 Sodium 129 L Potassium 3.2 L Chloride 91 L Carbon Dioxide 33 H Anion Gap 8.2 BUN 13 Creatinine 0.80 Estimated Creat Clear 39 Estimated GFR 68 Est GFR ( Amer) 82 Glucose 98 Calcium 8.0 L Magnesium 1.8 Total Bilirubin 1.8 H AST 38 H ALT 56 Alkaline Phosphatase 84 Troponin I 0.04 H Total Protein 5.7 L Albumin 3.5 Globulin 2.2 Albumin/Globulin Ratio 1.6 Triglycerides 55 Cholesterol 87 L VLDL Cholesterol 11 HDL Cholesterol 34 L Cholesterol/HDL Ratio 2.6 DS: Diagnosis Discharge Diagnosis (1) Acute HFrEF (heart failure with reduced ejection fraction): Status: Acute Code(s): I50.21 - Acute systolic (congestive) heart failure (2) Atrial fibrillation: Status: Deleted Code(s): I48.91 - Unspecified atrial fibrillation (3) Volume overload: Status: Acute Code(s): E87.70 - Fluid overload, unspecified (4) Cough: Status: Acute Code(s): R05.9 - Cough, unspecified Qualifiers: Cough type: acute Qualified Code(s): R05.1 - Acute cough (5) Lower extremity edema: Status: Acute Code(s): R60.0 - Localized edema (6) Anxiety: Status: Acute Code(s): F41.9 - Anxiety disorder, unspecified (7) HTN (hypertension): Status: Acute Code(s): I10 - Essential (primary) hypertension (8) Hypothyroid: Status: Acute Code(s): E03.9 - Hypothyroidism, unspecified (9) Hyperlipidemia: Status: Acute Code(s): E78.5 - Hyperlipidemia, unspecified (10) GERD (gastroesophageal reflux disease): Status: Acute Code(s): K21.9 - Gastro-esophageal reflux disease without esophagitis (11) Fatigue: Status: Acute Code(s): R53.83 - Other fatigue Meds Home Medications and Allergies Home Medications ?Medication ?Instructions ?Recorded ?Confirmed ?Type Saccharomyces boulardii 250 mg 250 mg PO DAILY 3 10/18/24 History capsule (Daily Probiotic (S. boulardii)) dupilumab 100 mg/0.67 mL 200 mg (1.34 mL) SQ Q2W #1.3 4 mL 12/10/22 10/18/24 Rx subcutaneous syringe (Dupixent) vitamin C 45 mg-zinc citrate 3.75 1 tab PO DAILY 08/0510/18/24 History mg-elderberry 50 mg chewable tablet blood pressure monitor #1 ea 09/01/23 10/18/24 Rx mecobalamin (vitamin B12) 1,000 2,000 mcg PO DAILY 10/18/24 History mcg chewable tablet acetaminophen 500 mg capsule 1,000 mg (2 x 500 mg) PO Q6H PRN 06/14/24 10/18/24 Rx pain #60 caps omeprazole 20 mg capsule,delayed 20 mg PO DAILY GERD 9 0 days #90 07/11/24 10/18/24 Rx release caps albuterol sulfate 90 mcg/actuation 1 inh inhalation QI D PRN shortness 08/02/24 10/18/24 Rx aerosol inhaler of breath or wheezing #6.7 g lyn cholecalciferol (vitamin D3) 50 50 mcg PO DAILY #90 ca ps 09/29/24 10/18/24 Rx mcg (2,000 unit) capsule meloxicam 7.5 mg tablet 7.5 mg PO DAILY #30 tabs 05/1810/18/24 Rx cetirizine 10 mg tablet 10 mg PO DAILY PRN Allergic 10/18/24 10/18/24 History Symptoms atorvastatin 20 mg tablet 20 mg PO HS 30 days #30 tabs 10/20/24 Rx bumetanide 1 mg tablet 2 mg (2 x 1 mg) PO DAILY 30 days 10/20/24 Rx #60 tabs dapagliflozin propanediol 10 mg 10 mg PO DAILY 30 days #30 tabs 10/20/24 Rx tablet (Farxiga) levothyroxine 100 mcg tablet 100 mcg PO DAILYDM 30 day s #30 tabs 10/20/24 Rx (Synthroid) metoprolol succinate 25 mg 12.5 mg (1/2 x 25 mg) PO DA EM 30 10/20/24 Rx tablet,extended release 24 hr days #15 tabs potassium chloride 20 mEq 40 meq (2 x 20 mEq) PO DAILY 10 10/20/24 Rx tablet,extended days #20 tabs release(part/cryst) (Klor-Con M) oxazepam 10 mg capsule 10 mg PO HS PRN sleep #30 ca ps 10/21/24 Rx New Prescriptions to Start Prescriptions: Pete Parmar bumetanide Pete Lin dapagliflozin propanediol [Farxiga] Pete Lin levothyroxine [Synthroid] Pete Lin metoprolol succinate Pete Lin potassium chloride [Klor-Con M20] Pete Lin Allergies Allergy/AdvReac Type Severity Reaction Status Date / Time lisinopril Allergy Intermediate Cough Verified 10/18/24 14:18 Discharge Plan Disposition Patient Disposition: Home, Self-Care Condition: Fair Discharge Order Discharge Orders: Discharge Order (Routine); Ordered 10/20/24 Ordered By: Pete Lin Follow up Plan Follow up with: Lori Castellanos APRN [Nurse Practitioner, Cardiology] - 10/31/24 9:45 am Prescriptions/Medication Reconciliation: New atorvastatin 20 mg Tablet 20 mg PO HS 30 Days Qty: 30 0RF bumetanide 1 mg Tablet 2 mg PO DAILY 30 Days Qty: 60 0RF dapagliflozin propanediol [Farxiga] 10 mg Tablet 10 mg PO DAILY 30 Days Qty: 30 0RF potassium chloride [Klor-Con M20] 20 mEq Tablet,Er Particles/Crystals 40 meq PO DAILY 10 Days Qty: 20 0RF levothyroxine [Synthroid] 100 mcg Tablet 100 mcg PO DAILYDM 30 Days Qty: 30 0RF metoprolol succinate 25 mg Tablet Extended Release 24 Hr 12.5 mg PO DAILY 30 Days Qty: 15 0RF Continued (DME) blood pressure monitor Kit See Rx Instructions .Route Qty: 1 0RF Rx Instructions: As directed Saccharomyces boulardii [Daily Probiotic (S. boulardii)] 250 mg capsule 250 mg PO DAILY Dupixent Syringe 100 mg/0.67 mL syringe 200 mg SQ Q2W Qty: 1.34 2RF vit C-zinc citrate-elderberry 45-3.75-50 mg tablet,chewable 1 tab PO DAILY mecobalamin (vitamin B12) 1,000 mcg tablet,chewable 2,000 mcg PO DAILY cetirizine 10 mg tablet 10 mg PO DAILY PRN (Reason: Allergic Symptoms) acetaminophen 500 mg capsule 1,000 mg PO Q6H PRN (Reason: pain) Qty: 60 1RF Rx Instructions: 1-2 capsules as needed for pain albuterol sulfate 90 mcg/actuation HFA aerosol inhaler 1 inh inhalation QID PRN (Reason: shortness of breath or wheezing) Qty: 6.7 1RF omeprazole 20 mg capsule,delayed release(DR/EC) 20 mg PO DAILY 90 Days Qty: 90 3RF cholecalciferol (vitamin D3) 50 mcg (2,000 unit) capsule 50 mcg PO DAILY Qty: 90 3RF meloxicam 7.5 mg tablet 7.5 mg PO DAILY Qty: 30 2RF Discontinued furosemide [Lasix] 20 mg tablet 20 mg PO DAILY levothyroxine 75 mcg tablet 75 mcg PO DAILY Qty: 90 1RF atorvastatin 10 mg tablet 10 mg PO HS irbesartan 150 mg tablet 150 mg PO DAILY No Action oxazepam 10 mg capsule 10 mg PO HS PRN (Reason: sleep) Qty: 30 0RF Rx Instructions: Do not combine with other sedating medications. Do not restart until finished with current dose of cough medicine. Other Ambulatory Orders: Rehab Eval, OP (Routine) Timeframe: 2 Days Facility: [facility] - Location: Physical Therapy Ordered By: Pete Lin Problem Reconciliation Problems Reviewed?: Yes Patient Discharge Instructions ACTIVITY: Continue current activity DIET: continue same diet Patient Instructions: Congestive Heart Failure (Alternative Therapy), Lifestyle Habits May Lower Lifetime Risk of Heart Failure in Men, Stop Light Heart Failure Print Language: Italian Providers Primary Care Provider: Provider,Referral Admit Provider: Pete Lin Attending Provider: Pete Lin
[2024-10-20 08:00] VITALS: BP 129/81; PULSE 100; PULSE 105; RESP 16; TEMP 37.2; O2SAT 95
[2024-10-20] MEDS: POTASSIUM CHLORIDE 20MEQ TAB 40 MEQ PO ×2 (09:54→12:08)
[2024-10-20] MEDS: BUMETANIDE 1MG/4ML VIAL 2 MG IV (09:54)
--- NOTE | 2024-10-20 11:43 | EXP.CARD.PN ---
Subjective Subjective Date: 10/20/24 Time: 08:30 Principal diagnosis: Acute HFrEF, aortic stenosis Interval history: This is an 84-year-old female who presented to the cardiology clinic and was found to be in acute HFrEF with severe aortic stenosis. She had mild nonocclusive coronary artery disease. The patient was diuresed with IV diuretics overnight. Today she feels much better she states her shortness of breath has significantly improved. She denies any chest pain or pressure. She denies any lower extremity edema. She denies any fever, chills, nausea, vomiting, diarrhea, PND orthopnea. Exam Data for Last 24 hours Vital signs and Labs for Last 24 Hours: Temp Pulse Resp BP Pulse Ox O2 Del Method O2 Flow Rate 98.9 F 105 H 16 129/81 95 Room Air 3 10/20/24 08:00 10/20/24 08:00 10/20/24 08:00 10/20/24 08:00 10/20/24 08:00 10/20/24 11:02 10/19/24 13:35 Laboratory Results - last 24 hr 10/20/24 06:08: WBC 5.5, RBC 3.66 L, Hgb 9.5 L, Hct 29.0 L, MCV 79.2 L, MCH 26.0 L, MCHC 32.8, RDW 16.1, Plt Count 222, MPV 10.6 H, Neut % (Auto) 58.1, Lymph % (Auto) 25.4, Bledsoe % (Auto) 12.3 H, Eos % (Auto) 2.4, Baso % (Auto) 1.4, Neut # (Auto) 3.2, Lymph # (Auto) 1.4, Bledsoe # (Auto) 0.7, Eos # (Auto) 0.1, Baso # (Auto) 0.1, Sodium 129 L, Potassium 3.2 L, Chloride 91 L, Carbon Dioxide 33 H, Anion Gap 8.2, BUN 13, Creatinine 0.80, Estimated Creat Clear 39, Estimated GFR 68, Est GFR ( Amer) 82, Glucose 98, Calcium 8.0 L, Magnesium 1.8, Total Bilirubin 1.8 H, AST 38 H, ALT 56, Alkaline Phosphatase 84, Total Protein 5.7 L, Albumin 3.5, Globulin 2.2, Albumin/Globulin Ratio 1.6, Triglycerides 55, Cholesterol 87 L, LDL Cholesterol Direct 49.81 L, VLDL Cholesterol 11, HDL Cholesterol 34 L, Cholesterol/HDL Ratio 2.6 I & O for Last 24 hours: Intake & Output 10/17/24 10/18/24 10/19/24 10/20/24 23:59 23:59 23:59 23:59 Intake Total 360 / 460 310 / 430 370 / 370 Output Total 600 / 1200 1001 / 1001 800 / 800 Balance -240 / -740 -691 / -571 -430 / -430 Weight 149 lb 14.629 oz 144 lb 8 oz 135 lb 5 oz Constitutional Constitutional: no acute distress and average body habitus *Routine HEENT Exam Head: Present normocephalic and atraumatic ENT: Present mucous membranes moist *Routine Neck Exam Neck: Present supple, full ROM and normal carotid upstroke; Absent JVD, carotid bruit or lymphadenopathy *Routine Respiratory Exam Respiratory: Present CTA bilaterally, normal respiratory effort, able to speak in complete sentences and symmetric chest movement *Routine Cardiovascular Exam Cardiovascular: Present RRR, Normal S1, Normal S2 and murmur; Absent gallop *Routine Abdominal Exam Abdominal: Present soft and normoactive bowel sounds; Absent tenderness, distended or organomegaly *Routine Extremities Exam Extremities: Present full ROM, pulses intact and normal capillary refill; Absent cyanosis, clubbing or edema *Routine Skin Exam Skin: Present intact and warm; Absent erythema *Routine Neurological Exam Neurological: Present alert, oriented X3 and CN II-XII intact; Absent sensory deficit or motor deficit Routine Psychiatric Exam Psychiatric: Present normal affect Progress Note: A&P Assessment and plan (1) Non-STEMI (non-ST elevated myocardial infarction): Status: Acute (2) Acute HFrEF (heart failure with reduced ejection fraction): Status: Acute (3) Aortic stenosis: Status: Acute (4) Atrial fibrillation: Status: Deleted (5) Volume overload: Status: Acute (6) Cough: Status: Acute (7) Lower extremity edema: Status: Acute (8) Anxiety: Status: Acute (9) HTN (hypertension): Status: Acute (10) Hypothyroid: Status: Acute (11) Hyperlipidemia: Status: Acute (12) GERD (gastroesophageal reflux disease): Status: Acute (13) Fatigue: Status: Acute (14) Coronary artery disease: Status: Acute Assessment and Plan Assessment and Plan for All Diagnoses:: Plan: 1. The patient was admitted to the hospital and found to have acute HFrEF. Her ejection fraction is 20%. She has been diuresed on IV Bumex. Will stop her IV Bumex and switch her over to oral Bumex 2 mg p.o. daily. 2. Start Toprol XL 12.5 mg p.o. daily for HFrEF. 3. Start Farxiga 10 mg daily for HFrEF. 4. Will get the patient started on Entresto and spironolactone on an outpatient basis. 5. Left cardiac catheterization showed mild nonocclusive coronary artery disease. CAD is stable. Recommend aspirin 81 mg daily. 6. The patient has low-flow, low gradient severe aortic stenosis on echocardiogram. However left cardiac catheterization did not show much of a gradient when the aortic valve was crossed. There is a discrepancy here about the degree of her aortic stenosis. On an outpatient basis, the patient will need a dobutamine stress echocardiogram to further evaluate the severity of her aortic stenosis. Will set this up for next week as an outpatient. 7. She will also likely benefit from a cardiac MRI on an outpatient basis due to her new onset cardiomyopathy and aortic stenosis. 8. The patient does have severe LV dysfunction. She is an increased risk for sudden cardiac due to her severe LV dysfunction. The patient will need a LifeVest in place prior to discharge home. Her LifeVest has been approved and she will be fitted today. 9. Her blood pressure is well-controlled. 10. Her LDL goal is less than 55. Her LDL is 49. She is on a statin. 11. No atrial fibrillation noted during review of her telemetry strips and EKG. The patient was having sinus tachycardia with frequent PACs. She does not need to be anticoagulated at this time as there is no evidence of atrial fibrillation per Dr. Garcia. 12. No further recommendations at this time from a cardiac standpoint. The patient can be discharged home today from a cardiac standpoint with follow-up in cardiology clinic next week with Dr. Garcia. 13. The patient will need to be discharged on the following cardiac medications: Aspirin 81 mg daily, Lipitor 20 mg p.o. nightly, Bumex 2 mg p.o. daily, Farxiga 10 mg daily, metoprolol XL 12.5 mg p.o. daily, Protonix 40 mg daily. Will need to get the patient started on Entresto and spironolactone on an outpatient basis. Thank you for the opportunity to help participate in the care of this patient. All recommendations and orders are per Dr. Linares.
[2024-10-20 12:00] VITALS: PULSE 100
[2024-10-20] MEDS: DAPAGLIFLOZIN PROPANEDIOL 10 MG TABLET PO (12:51)
[2024-10-20] MEDS: BUMETANIDE 1 MG TABLET 2 MG PO (12:51)
[2024-10-20] MEDS: METOPROLOL SUCCINATE XL 25MG TABLET 12.5 MG PO (12:52)
--- NOTE | 2024-10-24 13:44 | CARE MANAGER ---
Spoke with patient related to hospital discharge. She states that she has all her new medication and is aware of follow up appointments. Denies questions at this time. She has outpatient therapy scheduled.
== END 2024-10-20 15:52 | disposition home or self-care (01) | DRG 280 ==
PROVIDERS: Internal Medicine; Nurse Practitioner Family; Admitting Provider Internal Medicine Adolescent Medicine; Visit Provider Internal Medicine Adolescent Medicine
PROC: 4A023N7 Measurement of Cardiac Sampling and Pressure, Left Heart, Percutaneous Approach (ICD-10-PCS; CPT 93452; principal; 2024-10-19 13:00)
DX: I11.0 Hypertensive heart disease with heart failure (principal); I50.21 Acute systolic (congestive) heart failure; I21.A1 Myocardial infarction type 2; R05.9 Cough, unspecified; R60.0 Localized edema; E03.9 Hypothyroidism, unspecified; F41.9 Anxiety disorder, unspecified; E78.5 Hyperlipidemia, unspecified; K21.9 Gastro-esophageal reflux disease without esophagitis; G47.9 Sleep disorder, unspecified; K76.1 Chronic passive congestion of liver; E87.8 Other disorders of electrolyte and fluid balance, not elsewhere classified; D64.9 Anemia, unspecified; R53.83 Other fatigue; I42.9 Cardiomyopathy, unspecified; I35.0 Nonrheumatic aortic (valve) stenosis; I25.10 Atherosclerotic heart disease of native coronary artery without angina pectoris; Z79.890 Hormone replacement therapy
CPT/HCPCS: 36415; 80053; 80061; 83735; 84443; 84484; 85025; 93005; 93306; 97162; 97530; 99152; C1725; C1769; J1200; J1644; J1650; J1939; J2250; J3010; J3475; Q9957; Q9967

== ENCOUNTER 2024-10-26 10:00 | Outpatient (CLI) | payer MEDICARE, SELFPAY ==
--- NOTE | 2024-10-26 | CA_ITS ---
APPROVED REPORT Exam: Pharmacologic Technologist: Jessica Hart Ht: 5 ft 1 in Wt: 144 lbs BSA: 1.64 m2 Rhythm: NSR Medical History Medications: acetaminophen, albuterol, atorvastatin, cetirizine, vitamin D3, B-12, voltaren, dupilumab, lasix, levothyroxine, meclizine, meloxicam, omeprazole, oxazepam, promethazine-DM. Stress Test Details Test: Dobutamine Reason for pharmacologic stress test: physical limitation. HR Resting HR: 86 bpm Max Heart Rate (APMHR): 134 bpm Max HR Achieved: 115 bpm Target HR (85% APMHR): 114 bpm % of APMHR: 86 Recovery HR: 90 bpm BP Resting BP: 120.0/72.0 mmHg Max BP: 126.0/73.0 mmHg Recovery BP: 117.0/65.0 mmHg ECG Resting ECG: NSR Stress ECG: No significant ST changes Arrhythmia: PVCs Stress ECG Conclusion Patient underwent low-dose dobutamine stress test for evaluation of aortic stenosis. At baseline, ECG demonstrates normal sinus rhythm. Following dobutamine administration. No ST changes were noted. Occasional PVCs were present. Imaging findings on echocardiography are reported separately. Electronically signed by : Radha Linares MD 10/30/2024 20:55:58
--- NOTE | 2024-10-26 10:07 | CA_ITS ---
APPROVED REPORT EXAM: Comprehensive 2D, Doppler, and color-flow Echocardiogram Heating Operators Engineer: Adele Tay RVT Ht: 5 ft 1 in Wt: 140lbs BSA: 1.62 BP: 117/70 mmHg Indications: Suspected low-flow low gradient severe aortic stenosis Echo Procedure The patient underwent a Pharmacological Stress Test using Dobutamine. Blood pressure, heart rate, and EKG were monitored. An Echocardiogram was performed by soil technician in four stages in quad fashion. At peak stress, four selected images were obtained and placed side by side with resting images for comparison. Stress Test Details HR Resting HR: 94 bpm Max Heart Rate (APMHR): 134 bpm Max HR Achieved: 134 bpm Target HR (85% APMHR): 114 bpm % of APMHR: 100 BP Resting BP: 117/70 mmHg ECG Echo Findings The Pre-Stress Echocardiogram showed Reduced left ventricular contractility with an estimated Ejection Fraction of about 20%. Pre-dobutamine administration, peak velocity is 2.6 m/s. Mean AV gradient is 20 mmHg. Max AV gradient is 33 mmHg. 2D planimetry shows MARYSE is 1.2 cm???. Post dobutamine administration, peak velocity is 3.2 m/s. Mean AV gradient is 31 mmHg. Max AV gradient is 42 mmHg. MARYSE by continuity equation is 1.3 cm2. Other Information Study Quality: Fair Conclusion Dobutamine stress echocardiogram demonstrates presence of moderate aortic stenosis. 2D planimetry shows MARYSE is 1.2 cm2. Evaluation for alternative etiologies of cardiomyopathy is suggested. Electronically signed by : Radha Linares MD 10/26/2024 15:51:30
[2024-10-26] MEDS: SODIUM CHLORIDE 0.9% IV (11:22)
[2024-10-26] MEDS: DOBUTAMINE HCL IV (11:22)
== END 2024-10-26 23:59 | disposition home or self-care (01) ==
PROVIDERS: PCP Internal Medicine; Visit Provider Nurse Practitioner Family
DX: I35.0 Nonrheumatic aortic (valve) stenosis (principal); I49.3 Ventricular premature depolarization
CPT/HCPCS: 93017; 93018; 93350; J1250

== ENCOUNTER 2024-10-27 10:25 | Outpatient (CLI) | payer MEDICARE, SELFPAY ==
--- NOTE | 2024-10-27 10:30 | MR_ITS ---
APPROVED REPORT Permanent Waver: CLINICAL INDICATION Aortic stenosis, nonischemic cardiomyopathy TECHNIQUE Image Acquisition: Cardiac magnetic resonance (CMR) was performed on Siemens Espree MRI 1.5T scanner. Software platform sequences were performed using the Siemens [employer] MR B19 platform. A set of three-plane, low-resolution, large [id number] localizers were initially acquired. Then axial, coronal, sagittal TrueFISP, as well as axial HASTE images, were obtained. These were followed by gated TrueFISP breathold cinematic sequences obtained in the short axis with 8 mm slices and 2 mm gaps, 2-chamber (vertical long axis), 3-chamber, 4-chamber (horizontal long axis). A bolus of contrast was injected intravenously with first-pass sequences obtained in the short axis and four-chamber planes. After approximately 10 minutes, a TI business development director sequence was performed to determine the optimal TI time. Using the optimized TI time, delayed contrast enhancement segmented inversion???recovery TurboFLASH sequences were obtained in the short axis, 2-chamber, 3-chamber, and 4-chamber projections. 2D-velocity phase mapping was performed. Functional parameters were calculated by offline analysis on an independent workstation ([employer], [employer]). Contrast: ProHance??? (Gadoteridol) FINDINGS MORPHOLOGY AND FUNCTION Left ventricle: The left ventricle is mildly dilated. The indexed left ventricular end-diastolic volume (LVEDVi) is 95 ml/m2 (reference range 57-105 ml/m2 in males, 56-96 ml/m2 in females). Severe reduction in left ventricular systolic function is present. There is normal left ventricular wall thickness. Severe global hypokinesis is present. There are no regional wall motion abnormalities noted. LVEF is calculated at 21.5% (reference range 57-77%). Right ventricle: The right ventricle is mildly dilated. The indexed right ventricular end-diastolic volume (RVEDVi) is 75 ml/m2 (reference range 61-121 ml/m2 in males, 48-112 ml/m2 in females). Moderate reduction in right ventricular systolic function is present. RVEF is calculated at 37.2% (reference range 52-72% in males, 51-71% in females). Atria: The left atrium is severely dilated. The maximum indexed left atrial volume is 50 ml/m2 (reference range 26-52 ml/m2 in males, 27-53 ml/m2 in females). The right atrium is moderately dilated. The maximum indexed right atrial volume is 43 ml/m2 (reference range 18-90 ml/m2). Aorta: The diameter of the aortic annulus is normal, measuring 20 mm (coronal view reference range 21-30 mm in males, 19-27 mm in females). The diameter of the aortic sinus is normal, measuring 30 mm (coronal view reference range 25-42 mm in males, 24-36 mm in females). The diameter of the sinotubular junction is normal, measuring 21 mm (coronal view reference range 18-32 mm in males, 18-28 mm in females). The diameters of the ascending and descending thoracic aorta are normal. Main pulmonary artery: The main pulmonary artery diameter is normal. Pericardium: The pericardial thickness is normal. The pericardial thickness measures 2.0 mm (normal < 4.0 mm). There is no pericardial effusion. VALVES Moderate aortic stenosis is present. MARYSE is 1.2 cm???. Mild aortic regurgitation is present. Mild mitral regurgitation is present. Mild tricuspid regurgitation is present. Systolic anterior motion of the mitral valve is not visualized. Ratio of pulmonary to systemic flow, Qp:Qs ratio = 1.35 (normal < or = 1.2, hemodynamically significant shunt > 1.5), demonstrating no evidence of hemodynamically significant shunt. TISSUE CHARACTERIZATION Resting Perfusion: Normal myocardial blood flow at rest. No evidence of resting hypoperfusion. Myocardial Fibrosis and/or edema: Normal gadolinium kinetics are present. No evidence of late gadolinium enhancement is noted, consistent with absence of myocardial scarring, infarction, or necrosis. T2-weighted imaging demonstrates no evidence of myocardial edema or inflammation. OTHER Small sized pleural effusions bilaterally IMPRESSION Mildly dilated LV with severe reduction in LV systolic function.. LVEDVi= 95 ml/m2 and LVEF= 21.5%. Mildly dilated RV with moderate reduction in RV systolic function. RVEDVi= 75 ml/m2 and RVEF= 37.2%. Biatrial enlargement. Moderate aortic stenosis is present. MARYSE is 1.2 cm2. Mild MR, mild AI, mild TR. No CMR evidence of myocardial scarring, infarction, or necrosis. No evidence of myocardial edema or inflammation. Perfusion analysis demonstrates normal blood flow at rest with no evidence of resting hypoperfusion. Ratio of pulmonary to systemic flow, Qp:Qs ratio = 1.35 (normal < or = 1.2, hemodynamically significant shunt > 1.5), demonstrating no evidence of hemodynamically significant shunt. Incidental finding of small pleural effusions bilaterally. This CMR demonstrates presence of nonischemic biventricular cardiomyopathy. No evidence of infiltrative disease or evidence of prior infarct, scarring, or myocardial fibrosis. Moderate aortic stenosis is present, with MARYSE of 1.2 cm2, correlating with valve area measured on stress echocardiogram. GDMT is recommended. LifeVest may be suggested, if clinically indicated and feasible. Serial TTE evaluations for LV systolic function and aortic stenosis are also recommended. COMPARISON None CRITICAL RESULT None COMMUNICATION The above findings were relayed to the patient at the time of the routine outpatient cardiology follow-up visit, prior to dictation of this report. The findings of this cardiac MR were reviewed, reported, and signed by Sumanth Linares MD ([facility]). Conclusion Electronically signed by : Radha Linares MD 11/30/2024 01:01:15
[2024-10-27] MEDS: GADOTERIDOL INJ 20ML SYRINGE 16 ML IV (11:55)
[2024-10-27] MEDS: 0.9 % SODIUM CHLORIDE 50 ML VIAL 20 ML IV (11:55)
[2024-10-27] MEDS: SODIUM CHLORIDE 0.9% 10ML SYR (RAD ONLY) 10 ML IV (11:55)
== END 2024-10-27 23:59 | disposition home or self-care (01) ==
LOC: RAD 10:27
PROVIDERS: PCP Nurse Practitioner Family; Visit Provider Nurse Practitioner Family
DX: I08.3 Combined rheumatic disorders of mitral, aortic and tricuspid valves (principal); J90 Pleural effusion, not elsewhere classified; I42.8 Other cardiomyopathies; I50.21 Acute systolic (congestive) heart failure
CPT/HCPCS: 75561; A9576

== ENCOUNTER 2024-10-31 14:19 | Outpatient (CLI) | payer MEDICARE, SELFPAY ==
--- OUTSIDE RECORDS SUMMARY | 2024-10-31 14:23 | XMS_ITS | Clinical Summary ---
Author Organization [facility] Address [address] [place], [place] [id number] Care Team Providers Care Grinder Name Role Phone Shaw Duque MD Primary Care Provider [phone] Social History Tobacco Use Types Packs/Day Years Used Date Smoking Tobacco: Never Assessed Comments Unknown Sex and Gender Information Value Date Recorded Sex Assigned at Not on file Legal Sex Female 6:48 PM EDT Gender Identity Not on file Sexual Orientation Not on file Last Filed Vital Signs Vital Sign Reading Time Taken Comments Blood Pressure - - Pulse - - Temperature - - Respiratory Rate - - Oxygen Saturation - - Inhaled Oxygen Concentration - - Weight 62.6 kg (138 lb 0.1 oz) 06/27/2015 1:49 P M EST Height 157.5 cm (5' 2 ) 06/27/2015 1:49 PM EST Body Mass Index 25.24 06/27/2015 1:49 PM EST Plan of Treatment Health Maintenance Due Date Last Done Comments [facility]-Bone Density Scan 1938 [facility]-Depression Screening 1938 [facility]-Infant/Child/Adol SDOH Screenings 1938 [facility]- SDOH Screenings 01/17/1956 [facility]-Adult SDOH Screenings 01/17/1956 [facility]-DTaP,Tdap,and Td Vaccine s (1 - Tdap) 1957 [facility]-Pneumococcal Vaccine: 50 + Years (1 of 1 - PCV) 01/17/1988 [facility]-Zoster Vaccines (1 of 2) 01/17/1988 [facility]-RSV Vaccine: 60+ Years o r (1 - 1-dose 75+ series) 2013 [id number] Vaccine (1 - 20 24-25 season) 2024 [facility]-Influenza Vaccine (Seas[place] n Ended) 2025 HPV Vaccines Aged Out No longer eligi ble based on patient's age to complete this topic [facility]-HIB Vaccines Aged Out No longer e ligible based on patient's age to complete this topic [facility]-Hepatitis A Vaccines Aged Out No longer eligible based on patient's age to complete this topic [facility]-IPV Vaccines Aged Out No longer e ligible based on patient's age to complete this topic [facility]-Rotavirus Vaccines Aged Out No lo nger eligible based on patient's age to complete this topic Care Teams Grinder Relationship Specialty Start Date End Date Shaw Duque MD [address] [place] [address] PCP - General 10/05/20
[2024-10-31 16:14] LABS: Chloride 92 mmol/L (98-107)
[2024-10-31 16:15] LABS: Potassium 4.6 mmoL/L (3.5-5.1); Sodium 132 mmol/L (136-145)
[2024-10-31 16:18] LABS: Anion Gap 11.6 mEq/L (5-15); Blood Urea Nitrogen 23 mg/dl (7-17); Carbon Dioxide 33 mmol/L (22.0-30.0); Estimated Glomerular Filt Rate 59 ml/min (>60); GFR (African American) 72 ML/MIN (>60); Glucose 95 mg/dl (74-100)
== END 2024-10-31 23:59 | disposition home or self-care (01) ==
LOC: LAB 14:19
PROVIDERS: PCP Internal Medicine; Visit Provider Internal Medicine
DX: R79.89 Other specified abnormal findings of blood chemistry (principal); R60.0 Localized edema; R06.02 Shortness of breath; R01.1 Cardiac murmur, unspecified; I10 Essential (primary) hypertension; R53.83 Other fatigue
CPT/HCPCS: 36415; 80048

== ENCOUNTER 2024-11-12 07:35 | Emergency (ER) | payer MEDICARE, SELFPAY ==
--- NOTE | 2024-11-12 07:47 | HMH.EDCP ---
Discharge Plan Disposition Chief Complaint: Shortness of Breath/Dyspnea Prescriptions Prescriptions: No Action (DME) blood pressure monitor Kit See Rx Instructions .Route Qty: 1 0RF Rx Instructions: As directed spironolactone 25 mg tablet 12.5 mg PO DAILY Qty: 30 2RF bumetanide 1 mg tablet 1 mg PO DAILY 30 Days Qty: 30 5RF Saccharomyces boulardii [Daily Probiotic (S. boulardii)] 250 mg capsule 250 mg PO DAILY Dupixent Syringe 100 mg/0.67 mL syringe 200 mg SQ Q2W Qty: 1.34 2RF vit C-zinc citrate-elderberry 45-3.75-50 mg tablet,chewable 1 tab PO DAILY mecobalamin (vitamin B12) 1,000 mcg tablet,chewable 2,000 mcg PO DAILY cetirizine 10 mg tablet 10 mg PO DAILY PRN (Reason: Allergic Symptoms) acetaminophen 500 mg capsule 1,000 mg PO Q6H PRN (Reason: pain) Qty: 60 1RF Rx Instructions: 1-2 capsules as needed for pain albuterol sulfate 90 mcg/actuation HFA aerosol inhaler 1 inh inhalation QID PRN (Reason: shortness of breath or wheezing) Qty: 6.7 1RF omeprazole 20 mg capsule,delayed release(DR/EC) 20 mg PO DAILY 90 Days Qty: 90 3RF cholecalciferol (vitamin D3) 50 mcg (2,000 unit) capsule 50 mcg PO DAILY Qty: 90 3RF meloxicam 7.5 mg tablet 7.5 mg PO DAILY Qty: 30 2RF oxazepam 10 mg capsule 10 mg PO HS PRN (Reason: sleep) Qty: 30 0RF Rx Instructions: Do not combine with other sedating medications. Do not restart until finished with current dose of cough medicine. atorvastatin 20 mg Tablet 20 mg PO HS 30 Days Qty: 30 0RF dapagliflozin propanediol [Farxiga] 10 mg Tablet 10 mg PO DAILY 30 Days Qty: 30 0RF levothyroxine [Synthroid] 100 mcg Tablet 100 mcg PO DAILYDM 30 Days Qty: 30 0RF metoprolol succinate 25 mg Tablet Extended Release 24 Hr 12.5 mg PO DAILY 30 Days Qty: 15 0RF Referrals Follow up/Referrals: Justyn Boyer DO [Primary Care Provider, Family Practice] - See instructions Print Language Print Language: Portuguese Discharge ED Provider: Janina Jade HPI General Chief Complaint: Shortness of Breath/Dyspnea Stated Complaint: Pt of Dr. TODD-CHF, SOB, Congestion Time Seen by Provider: 11/12/24 07:40 History of Present Illness HPI narrative: Patient is an 84-year-old with past medical history significant for heart failure reduced ejection fraction last echo 20% coronary artery disease hypertension hypothyroidism hyperlipidemia history of CVA prediabetes presents emergency department with shortness of breath. Patient has had a productive cough for the last 3 days with associated shortness of breath and generalized weakness. Nasal congestion and minor headache chills with bodyaches. No weight gain or lower extremity edema. No chest pain. No missed doses of diuretics. Related Data Home Medications ?Medication ?Instructions ?Recorded ?Confirmed Saccharomyces boulardii 250 mg 250 mg PO DAILY 12/10/22 10/31/24 capsule (Daily Probiotic (S. boulardii)) vitamin C 45 mg-zinc citrate 3.75 1 tab PO DAILY 08/06/23 10/31/24 mg-elderberry 50 mg chewable tablet mecobalamin (vitamin B12) 1,000 2,000 mcg PO DAILY 12/07/23 10/31/24 mcg chewable tablet cetirizine 10 mg tablet 10 mg PO DAILY PRN Allergic 10/18/24 10/31/24 Symptoms Previous Rx's ?Medication ?Instructions ?Recorded dupilumab 100 mg/0.67 mL 200 mg (1.34 mL) SQ Q2W #1.34 mL 12/10/22 subcutaneous syringe (DupixSimpli[employer]) blood pressure monitor #1 ea 09/01/23 acetaminophen 500 mg capsule 1,000 mg (2 x 500 mg) PO Q6H PRN 06/14/24 pain #60 caps omeprazole 20 mg capsule,delayed 20 mg PO DAILY GERD 90 days #90 07/11/24 release caps albuterol sulfate 90 mcg/actuation 1 inh inhalation QID PRN shortness 08/02/24 aerosol inhaler of breath or wheezing #6.7 grams cholecalciferol (vitamin D3) 50 50 mcg PO DAILY #90 caps 09/29/24 mcg (2,000 unit) capsule meloxicam 7.5 mg tablet 7.5 mg PO DAILY #30 tabs 10/03/24 atorvastatin 20 mg tablet 20 mg PO HS 30 days #30 tabs 05/29/25 dapagliflozin propanediol 10 mg 10 mg PO DAILY 30 days #30 tabs 10/20/24 tablet (Farxiga) levothyroxine 100 mcg tablet 100 mcg PO DAILYDM 30 days #30 tabs 10/20/24 (Synthroid) metoprolol succinate 25 mg 12.5 mg (1/2 x 25 mg) PO DAILY 30 10/20/24 tablet,extended release 24 hr days #15 tabs oxazepam 10 mg capsule 10 mg PO HS PRN sleep #30 caps 10/21/24 bumetanide 1 mg tablet 1 mg PO DAILY 30 days #30 tabs 10/31/24 spironolactone 25 mg tablet 12.5 mg (1/2 x 25 mg) PO DAILY #30 10/31/24 tabs Allergies Allergy/AdvReac Type Severity Reaction Status Date / Time lisinopril Allergy Intermediate Cough Verified 10/31/24 13:31 [facility] Disclaimer: The information contained in this section may have been updated after the patient was seen, as this information can be updated by other users. 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 Impacted cerumen of both ears Boil of trunk Surgical History H/O colonoscopy 2003, 2014, 01/2019 S/P small bowel resection 2014 S/P cataract extraction H/O breast biopsy 2008, benign History of cholecystectomy 2002 S/P lumbar spine operation 1993 Family History Other Cancer Diabetes Heart attack Stroke Social History Smoking Status: Never smoker alcohol intake: never substance use type: denies use current occupational status: retired Travel in the last 8 weeks?: None household members: spouse housing: house caffeine: No Have you lived/traveled outside [place] in past 30 days?: No Contact w/someone who lives/traveled outside US past 30 days?: No Exposure to someone with infectious disease in past 14 days?: No Do you have a fever (greater than 100.4 F or 38 C)?: No Have you tested positive for COVID-19?: No Exposed to someone with COVID-19 in past 14 days?: No Do you have a sore throat?: No Do you have a cough?: No Do you have any weakness?: No Do you have any diarrhea?: No Are you experiencing any unusual bleeding?: No Do you have any muscle aches/pain?: No Do you have any abdominal pain?: No Are you experiencing loss of taste or smell?: No Other Medical History Have you received the Flu Vaccine for this season: No Have you received the Pneumonia Vaccine: Yes ROS Obtained: Yes All systems reviewed & no additional complaints except as documented Physical Exam General General appearance: alert and in no apparent distress Eye Eye exam: Absent conjunctival redness or conjunctival injection ENT ENT exam: Present other (Congestion) Neck Neck exam: Present trachea midline Chest Chest inspection: Present symmetric chest wall rise; Absent tenderness or rash Respiratory Respiratory exam: Present normal lung sounds bilaterally, respiratory distress and accessory muscle use; Absent wheezes Cardiovascular Cardiovascular exam: Present regular rate and tachycardia Abdominal Exam Abdominal exam: Present soft; Absent tenderness Extremities Exam Extremities exam: Absent tenderness or edema Neurological Exam Neurological exam: Present alert Skin Skin exam: Present dry HEART Score HEART Score HEART Score assessment performed?: Yes HEART Score: 4 Procedures Limited Ultrasound Indication:: soa Findings:: Limited Cardiac Ultrasound Indication: Shortness of breath Identified cardiac views: Cardiac parasternal long and short, bilateral lung dailey Findings: -Cardiac activity present - Estimated reduced ejection fraction -Gross wall motion normal/abnormal -Pericardial effusion absent -Right heart strain absent - Right lung field B-lines Impression: - From above Images saved to permanent archive The study was technically adequate CPT: 19864 This study was performed by me, and I personally interpreted all images/videos. Based on my clinical judgement, these images were [adequate/inadequate] and [did/did not] necessitate further imaging. Critical Care Critical Care Time Critical Care Time: No Medical Decision Making Tio Inquiry Pt receiving controlled substance: No Vital Signs Vital Signs: 11/12/24 07:50 Temperature 98 F Temperature Source Oral Pulse Rate [Right Radial] 103 H Respiratory Rate 16 Blood Pressure [Right Arm] 133/72 Blood Pressure Mean [Right Arm] 92 Blood Pressure Source [Right Arm] Automatic Cuff Blood Pressure Position [Right Arm] Sitting 02 Sat by Pulse Oximetry 98 Oxygen Delivery Method Room Air Lab Data Labs: Lab Results 11/12/24 08:07: SARS-CoV-2 (PCR) Not detected, Influenza A Untype (PCR) Not detected, Influenza Type B (PCR) Not detected 11/12/24 08:12: WBC 7.1, RBC 4.45, Hgb 11.7 L, Hct 35.8 L, MCV 80.4 L, MCH 26.3 L, MCHC 32.7, RDW 17.8 H, Plt Count 270, MPV 10.0, Neut % (Auto) 63.3, Lymph % (Auto) 21.5, [facility] % (Auto) 11.7 H, Eos % (Auto) 2.1, Baso % (Auto) 1.1, Neut # (Auto) 4.5, Lymph # (Auto) 1.5, [facility] # (Auto) 0.8, Eos # (Auto) 0.2, Baso # (Auto) 0.1, Sodium 130 L, Potassium 3.3 L, Chloride 94 L, Carbon Dioxide 30, Anion Gap 9.3, BUN 18 H, Creatinine 0.80, Estimated Creat Clear 35, Estimated GFR 68, Est GFR ( Amer) 82, Glucose 120 H, Calcium 8.7, Magnesium 1.5 L, Total Bilirubin 0.9, AST 35, ALT 21, Alkaline Phosphatase 106, Troponin I 0.03, NT-Pro-B Natriuret Pep 95457 H, Total Protein 7.5 D, Albumin 4.4, Globulin 3.1, Albumin/Globulin Ratio 1.4 11/12/24 08:12 11/12/24 08:12 Response Orders (Tests/Meds): ED MEDICATIONS Generic Name Dose Route Start Last Admin Trade Name Freq PRN Reason Stop Dose Admin Magnesium Sulfate 2 gm in 50 mls @ 50 mls/hr 11/12/24 08:43 11/12/24 09:00 Magnesium Sulfate 2gm/50ml Premix IV 11/12/24 09:42 50 mls/hr ONCE ONE Administration Discontinued Medications Generic Name Dose Route Start Last Admin Trade Name Freq PRN Reason Stop Dose Admin Albuterol/Ipratropium 3 ml 11/12/24 08:07 11/12/24 08:28 Ipratropium/Albuterol 3 Ml Neb IH 11/12/24 08:08 3 ml ONCE ONE Administration ORDERS Category Date Time Status CXR 2 view (NOT portable) [XR chest 2V] Stat Exams 11/12/24 08:00 Completed POCUS Point of Care (ER Only) Stat Exams 11/12/24 07:42 Ordered Complete Blood Count Auto Diff Stat Lab 11/12/24 08:12 Completed Comprehensive Metabolic Panel Stat Lab 11/12/24 08:12 Completed Full Resp Panel w/COVID ([facility]) Routine Lab 11/12/24 08:12 Received Magnesium Stat Lab 11/12/24 08:12 Completed NT Pro Brain Natriuretic Pep. Stat Lab 11/12/24 08:12 Completed Procalcitonin Stat Lab 11/12/24 08:12 Received Rapid PCR Covid and Flu A/B Stat Lab 11/12/24 08:07 Completed Troponin I Q3H Lab 11/12/24 11:15 Ordered Troponin I Q3H Lab 11/12/24 14:15 Ordered Troponin I Stat Lab 11/12/24 08:12 Completed MDM Narrative Medical Decision Narrative: In summary, this 84-year-old female presents to the emergency department today with cough and shortness of breath. On initial evaluation patient is tachycardic normotensive afebrile saturating appropriately on room air in no acute distress. Differential diagnosis includes but is not limited to viral syndrome allergic rhinitis pneumonia heart failure exacerbation ACS. Based on these concerns, I ordered CBC CMP EKG troponin BNP magnesium procalcitonin chest x-ray. ECG personally interpreted demonstrates normal sinus rhythm no acute ST elevation ST depression or T wave inversions concerning for ischemia. Patient received duoneb, 2 g magnesium, oral potassium for treatment. Labs personally reviewed demonstrate hypokalemia, hyponatremia, hypomagnesemia, normal troponin BNP elevated but downtrending from September when heart failure was initially diagnosed XR personally interpreted demonstrates no focal consolidation. No significant interstitial edema. On reevaluation patient has walking oxygen saturation 93% and improvement of cough after DuoNeb treatment. With downtrending BNP and no significant interstitial edema and no edema on physical exam symptoms are most consistent with acute viral illness or allergic rhinitis. Patient is high risk with chronic heart failure gave strict return precautions to return to emergency department with any new or worsening symptoms including worsening shortness of breath with any type of exertion. Recommend he continue to take diuretics and close follow up with PCP early next week.
[2024-11-12 07:50] VITALS: BP 133/72; PULSE 103; RESP 16; TEMP 36.6; O2SAT 98; BMI 23.8
--- OUTSIDE RECORDS SUMMARY | 2024-11-12 07:54 | XMS_ITS | Clinical Summary ---
Author Organization [facility] Address [address] [place], [place] [address] Care Team Providers Care Audit Intern Name Role Phone Shaw Duque MD Primary Care Provider [phone] Social History Tobacco Use Types Packs/Day Years [...] r (1 - 1-dose 75+ series) 2013 [id number] Vaccine (1 - 20 24-25 season) 2024 [...] age to complete this topic Care Teams Audit Intern Relationship Specialty Start Date End Date Shaw Duque MD [address] [facility] [place], [place] [id number] PCP - General 10/05/20
--- NOTE | 2024-11-12 08:00 | XR_ITS ---
PROCEDURE INFORMATION: Exam: XR Chest Exam date and time: 11/12/2024 8:06 AM Age: 84 years old Clinical indication: Shortness of breath; Additional info: SOA, cough, chf TECHNIQUE: Imaging protocol: Radiologic exam of the chest. Views: 2 views. COMPARISON: CR XR CHEST AP 10/13/2024 11:47 AM FINDINGS: Lungs: Unremarkable. No consolidation. Pleural spaces: Unremarkable. No pleural effusion. No pneumothorax. Heart/Mediastinum: Unremarkable. No cardiomegaly. Vasculature: Tortuous aorta Bones/joints: Mild compression fractures of unknown age in the lower thoracic spine IMPRESSION: No acute findings.
[2024-11-12 08:24] LABS: Coronavirus 19, PCR Not Detected (NotDetected); Influenza A, PCR Not Detected (NotDetected); Influenza B, PCR Not Detected (NotDetected)
[2024-11-12 08:24] LABS: Adenovirus,PCR Not Detected (NotDetected); Bordetella Pertussis Not Detected (NotDetected); Chlamydophila Pneumoniae, PCR Not Detected (NotDetected); Coronavirus 19, PCR Not Detected (NotDetected); Coronavirus 229E Not Detected (NotDetected); Coronavirus NL63 Not Detected (NotDetected); Coronavirus OC43 Not Detected (NotDetected); Coronovirus HKU1,PCR Not Detected (NotDetected); Human Metapneumovirus Not Detected (NotDetected); Influenza A, PCR Not Detected (NotDetected); Influenza AH1, 2009 Not Detected (NotDetected); Influenza AH1, PCR Not Detected (NotDetected); Influenza AH3,PCR Not Detected (NotDetected); Influenza B, PCR Not Detected (NotDetected); Mycoplasma Pneumoniae, PCR Not Detected (NotDetected); Parainfluenza 1, PCR Not Detected (NotDetected); Parainfluenza 2, PCR Not Detected (NotDetected); Parainfluenza 4, PCR Not Detected (NotDetected); Respiratory Syncytial Virus Not Detected (NotDetected); Rhinovirus/Enterovirus Not Detected (NotDetected)
[2024-11-12] MEDS: IPRATROPIUM/ALBUTEROL 3 ML NEB IH (08:28)
[2024-11-12 08:34] LABS: Basophils # 0.1 K/mm3 (0-0.2); Basophils % 1.1 % (0.1-2.0); Eosinophils # 0.2 Kmm3 (0.0-0.4); Eosinophils % 2.1 % (0.1-12.0); Hematocrit 35.8 % (37.0-47.0); Hemoglobin 11.7 g/dL (12.2-16.2); Immature Granulocytes # 0.02 10^3uL; Immature Granulocytes % 0.3 %; Lymphocytes # 1.5 K/mm3 (0.7-4.5); Lymphocytes % 21.5 % (10-50); Mean Corpuscular HGB Conc 32.7 g/dL (31.8-35.4); Mean Corpuscular Hemoglobin 26.3 pg (27.0-31.2); Mean Corpuscular Volume 80.4 fl (81-99); Monocytes # 0.8 K/mm3 (0.1-1.0); Monocytes % 11.7 % (1.7-9.3); Neutrophils # 4.5 K/mm3 (1.8-7.8); Neutrophils % 63.3 % (37.0-80.0); Nucleated Red Blood Cells # 0 10^3/uL; Nucleated Red Blood Cells % 0 %; Platelet Count 270 K/mm3 (142-424); Red Blood Count 4.45 M/mm3 (4.20-5.40); Red Cell Distribution Width 17.8 % (11.5-17.5); White Blood Count 7.1 K/mm3 (4.8-10.8)
[2024-11-12 08:36] LABS: Albumin Level 4.4 g/dl (3.5-5.0); Chloride 94 mmol/L (98-107); Potassium 3.3 mmoL/L (3.5-5.1); Sodium 130 mmol/L (136-145)
[2024-11-12 08:38] LABS: Blood Urea Nitrogen 18 mg/dl (7-17); Creatinine Clearance Estimated 35 mL/min (50-200); Estimated Glomerular Filt Rate 68 ml/min (>60); GFR (African American) 82 ML/MIN (>60)
[2024-11-12 08:39] LABS: Alanine Aminotransferase 21 U/L (12-78); Albumin/Globulin Ratio 1.4 (1.1-1.8); Alkaline Phosphatase 106 U/L (38-126); Anion Gap 9.3 mEq/L (5-15); Aspartate Amino Transferase 35 U/L (14-36); Bilirubin,Total 0.9 mg/dl (0.2-1.3); Calcium 8.7 mg/dl (8.4-10.2); Carbon Dioxide 30 mmol/L (22.0-30.0); Globulin 3.1 g/dL (1.3-3.2); Glucose 120 mg/dl (74-100); Magnesium 1.5 mg/dl (1.6-2.3); Total Protein,Serum 7.5 g/dl (6.3-8.2)
[2024-11-12 08:49] LABS: NT Pro Brain Natriuretic Pep. 10500 pg/mL (0-450)
[2024-11-12 08:51] LABS: Troponin I 0.03 ng/ml (0.00-0.034)
[2024-11-12] MEDS: MAGNESIUM SULFATE IN WATER 2 GM/50 ML PIGGYBACK IV (09:00)
[2024-11-12] MEDS: POTASSIUM CHLORIDE 20MEQ TAB 40 MEQ PO (09:30)
[2024-11-12 09:33] VITALS: BP 123/63; PULSE 91; RESP 18; TEMP 36.6; O2SAT 96
[2024-11-12 10:07] LABS: Parainfluenza 3, PCR Detected (NotDetected)
[2024-11-12 10:42] LABS: Procalcitonin 0.071 ng/mL (0.0-2.0)
[2024-11-12 11:12] LABS: HIV Combo NEGATIVE (Negative)
[2024-11-12 11:21] LABS: Hepatitis C Ab Qual. W/ RFX NEGATIVE (Negative)
== END 2024-11-12 09:43 | disposition home or self-care (01) ==
PROVIDERS: Emergency Provider Student in an Organized Health Care Education/Training Program; PCP Internal Medicine
DX: R06.02 Shortness of breath (principal); E87.6 Hypokalemia; E83.42 Hypomagnesemia; E87.1 Hypo-osmolality and hyponatremia; R05.9 Cough, unspecified; B34.8 Other viral infections of unspecified site; I11.0 Hypertensive heart disease with heart failure; I50.21 Acute systolic (congestive) heart failure; Z11.59 Encounter for screening for other viral diseases; Z11.4 Encounter for screening for human immunodeficiency virus [HIV]
CPT/HCPCS: 0223U; 71046; 80053; 83735; 83880; 84145; 84484; 85025; 86803; 87389; 87633; 87636; 96365; 99284; J3475

== ENCOUNTER 2024-11-17 14:00 | Outpatient (RCR) | payer MEDICARE, SELFPAY ==
--- NOTE | 2024-11-01 18:42 | HMH.PTOPEV ---
PT Outpatient Evaluation Rehab PT Outpatient Evaluation Start: 11/01/24 18:29 Freq: Status: Active Protocol: Document 11/01/24 18:29 MELO (Rec: 11/01/24 18:41 PHORALVERTO [id number]) E-signed By Irineo Miller, PT Outpatient Therapy Subjective History Subjective History This is the initial PT eval for Kim Begum, 84 yowf who presents with c/o general weakness and fatigue after a recent hospitalization. She reports these symptoms have been building for several months with increased SOA. She underwent heart cath, but required no stents. Found to have CHF with reduced ejection fraction. She reports she now has difficulty with all ADLs and everyday household tasks which require her to take frequent rest breaks. She reports a prior hx of R knee meniscus tear and OA. Chief Complaint Weakness Symptoms Relieved By Rest/Positioning Symptoms Aggravated Physical Activity By Prior Functional None Limitations Current Functional Housework,Recreation Activity,Walking Limitations Symptom Description Activity Dependent Level of pain today 0 (0-10) Tinetti Sitting Balance Sitting Balance Steady, safe Arising from Chair Ability to Arise Able, uses arms to help Attempts to Arise Arises on 1st attempt Standing Balance Immediate Standing Steady w/o support Balance Standing Balance Narrow stance w/o support Nudged Response Staggers, catches self Standing with Eyes Steady Closed Turning Step Pattern Turning Continuous steps 360 Degrees Stability Turning Steady 360 Degrees Sitting Down Sitting Down Uses arms or unsteady Gait and Step Initiation of Gait No hesitancy Right Foot Step Does pass stance foot Length Right Foot Step Completely clears floor Height Left Foot Step Does pass stance foot Length Left Foot Step Completely clears floor Height Step Description Step Symmetry Step length appears equal Step Continuity Steps appear continuous Gait Description Path Description Straight Trunk Description No sway Walking Stance Heels together Scoring and Interpretation Tinetti Composite 25 Score (points) Interpretation of Low risk for falls (>24) Scores Miscellaneous Dx PT Eval Objective Objective TU sec. FTSTS: 27 sec. Pt performed 5 min on Nu-step at level 1 with RPE of 3. MMT: B LE grossly 5/5 except Hip FLEX 4-/5 and Hip ABD 4/5. Outpatient Therapy Assessment Impairments Problems/ Impaired Endurance,Impaired Walking,Impaired Standing, Impairmments Impaired Shower/Bathing,Impaired Household Care, Impaired Recreational Activities,Impaired Tinnetti Score,Impaired Self Care/Self Management Prognosis Rehab Potential Good Comment Skilled therapy services are indicated to improve pt endurance to all activity, specifically functional mobility and ADLs, in order to return pt to PLOF. Clinical Impression Consistent with Yes Diagnosis Short Term Goals Number of Weeks 2 Increase Strength Yes: B HIP FLEX and ABD 4+/5 Increase Endurance Yes: lk x 5 min with RPE <6 Decrease TUG Time Yes: 18 sec or less Patient to be Ind w/ Yes HEP Snf Goals Number of Weeks 4 Increase Strength Yes: B LE 5/5 throughout Increase Endurance Yes: walk x 10 min with RPE 3 or less Improve Ability to Yes: without rest breaks Shower/Bathe Self Decrease TUG Time Yes: 14 or less Patient to be Ind w/ Yes Advanced HEP Outpatient Therapy Plan of Care Treatment Plan May Include Therapeutic Exercise Yes Including Home Exercise Program Manual Therapy Yes Techniques Neuromuscular Re- Yes education Therapeutic Yes Activities to Return to Previous Functional/Work Level Gait Training Yes ADL/Self Care Yes Education Eval/Re-Eval Yes Frequency Times per week 2 Duration Number of Weeks 4 Addendums This patient is a No candidate for social or vocational rehab ? Patient/Guardian Yes verbally acknowledges understanding of treatment program and consents to further treatment? Patient/Guardian Yes verbally acknowledges understanding of diagnosis, prognosis and goals for treatment? Eval Complexity PT Charges 26989 - High Complexity Shoulder/Elbow Eval Shoulder Objective Measurements Elbow Objective Measurements PHYSICIAN CERTIFICATION: I certify the specified therapy services for Kim Begum are required, authorized, and reviewed every 30 days.
== END 2024-11-17 23:59 | disposition home or self-care (01) ==
LOC: PT 14:00
PROVIDERS: PCP Internal Medicine; Visit Provider Internal Medicine Adolescent Medicine
DX: R53.1 Weakness (principal)
CPT/HCPCS: 97110; 97140; 97163; 97530

== ENCOUNTER 2024-11-22 14:47 | Outpatient (CLI) | payer MEDICARE, SELFPAY ==
--- OUTSIDE RECORDS SUMMARY | 2024-11-22 14:49 | XMS_ITS | Clinical Summary ---
Author Organization [facility] Address [address] [place], [place] [id number] Care Team Providers Care Class C Driver Name Role Phone Shaw Duque MD Primary Care Provider [phone] Social History Tobacco Use Types Packs/Day Years [...] r (1 - 1-dose 75+ series) 2013 [id number]-89 Vaccine (1 - 20 24-25 season) 2024 [...] age to complete this topic Care Teams Class C Driver Relationship Specialty Start Date End Date Shaw Duque MD [address] [facility] [place], [place] [id number] PCP - General 10/05/20
[2024-11-22 16:24] LABS: Anion Gap 11.8 mEq/L (5-15); Blood Urea Nitrogen 23 mg/dl (7-17); Calcium 9.6 mg/dl (8.4-10.2); Carbon Dioxide 33 mmol/L (22.0-30.0); Chloride 89 mmol/L (98-107); Creatinine,Serum 1.00 mg/dl (0.52-1.04); Estimated Glomerular Filt Rate 53 ml/min (>60); GFR (African American) 64 ML/MIN (>60); Glucose 98 mg/dl (74-100); Potassium 4.8 mmoL/L (3.5-5.1); Sodium 129 mmol/L (136-145)
== END 2024-11-22 23:59 | disposition home or self-care (01) ==
LOC: LAB 14:47
PROVIDERS: PCP Internal Medicine; Visit Provider Internal Medicine
DX: I25.10 Atherosclerotic heart disease of native coronary artery without angina pectoris (principal)
CPT/HCPCS: 36415; 80048

== ENCOUNTER 2024-12-01 10:04 | Outpatient (CLI) | payer MEDICARE, SELFPAY ==
--- OUTSIDE RECORDS SUMMARY | 2024-12-01 10:08 | XMS_ITS | Clinical Summary ---
Author Organization [facility] Address [address] [place], [place] [id number] Care Team Providers Care Install Technician Name Role Phone Shaw Duque MD Primary Care Provider [phone] Social History Tobacco Use Types Packs/Day Years [...] r (1 - 1-dose 75+ series) 2013 [id number] Vaccine (1 - 20 24-25 season) 2024 UKY-Influenza Vaccine (#1) 2025 HPV Vaccines Aged Out No longer [...] age to complete this topic Care Teams Install Technician Relationship Specialty Start Date End Date Shaw Duque MD [address] [place] [address] PCP - General 10/05/20
[2024-12-01 11:55] LABS: Anion Gap 13.5 mEq/L (5-15); Blood Urea Nitrogen 16 mg/dl (7-17); Calcium 9.4 mg/dl (8.4-10.2); Carbon Dioxide 29 mmol/L (22.0-30.0); Chloride 95 mmol/L (98-107); Creatinine,Serum 0.80 mg/dl (0.52-1.04); Estimated Glomerular Filt Rate 68 ml/min (>60); GFR (African American) 82 ML/MIN (>60); Glucose 97 mg/dl (74-100); Potassium 4.5 mmoL/L (3.5-5.1); Sodium 133 mmol/L (136-145)
== END 2024-12-01 23:59 | disposition home or self-care (01) ==
LOC: LAB 10:05
PROVIDERS: PCP Internal Medicine; Visit Provider Physician Assistant
DX: E87.1 Hypo-osmolality and hyponatremia (principal)
CPT/HCPCS: 36415; 80048

== ENCOUNTER 2024-12-21 14:00 | Outpatient (RCR) | payer MEDICARE, SELFPAY ==
--- NOTE | 2024-12-06 16:06 | HMH.RHREAS ---
Rehab Reassessment Rehab OP Re-assessment Start: 11/23/24 15:12 Freq: Status: Active Protocol: Document 12/06/24 15:56 PHORALVERTO (Rec: 12/06/24 16:06 PHORALVERTO [id number]) E-signed By Irieno Miller, PT Tinetti Sitting Balance Sitting Balance Steady, safe Arising from Chair Ability to Arise Able, w/o using arms Attempts to Arise Arises on 1st attempt Standing Balance Immediate Standing Steady w/o support Balance Standing Balance Narrow stance w/o support Nudged Response Steady Standing with Eyes Steady Closed Turning Step Pattern Turning Continuous steps 360 Degrees Stability Turning Steady 360 Degrees Sitting Down Sitting Down Safe, steady Gait and Step Initiation of Gait No hesitancy Right Foot Step Does pass stance foot Length Right Foot Step Completely clears floor Height Left Foot Step Does pass stance foot Length Left Foot Step Completely clears floor Height Step Description Step Symmetry Step length appears equal Step Continuity Steps appear continuous Gait Description Path Description Straight Trunk Description No sway Walking Stance Heels together Scoring and Interpretation Tinetti Composite 28 Score (points) Rehab Re-assessment Subjective Subjective Pt reports she feels ~ 60% better since her initial evaluation and is moving much better. She remains concerned with B hip strength and overall endurance to activity. Objective Objective Notes MMT B LE: HIP FLEX 4/5, HIP ABD 4+/5, otherwise 5/5. TU sec FTSTS: 17 sec RPE: 10 min on recumbent stepper = 2 Assessment Progress Assessment Progressing as Expected Assessment Notes Pt has shown significant improvement in TUG and FTSTS tests showing improvements in balance. She continues to have weakness in B hip musculature and overall decrease in endurance to activity. Skilled therapy remains indicated to improve B LE strength, increased endurance to all activity, and improve functional mobility in order to return to PLOF. Patient goals met ST/4 LT/5 Plan Plan Continue per initial POC. Frequency of Therapy 2 x/wk Duration of therapy 4 wks Time and Billing Re-Eval Time 12 Re-Eval Billing 0 Units Charge for PT No reassessment? PHYSICIAN CERTIFICATION: I certify the specified therapy services for Kim Begum are required, authorized, and reviewed every 30 days.
== END 2024-12-21 23:59 | disposition home or self-care (01) ==
LOC: PT 14:00
PROVIDERS: PCP Internal Medicine; Visit Provider Internal Medicine
DX: I50.21 Acute systolic (congestive) heart failure (principal); R53.1 Weakness
CPT/HCPCS: 97110; 97530

== ENCOUNTER 2025-01-11 13:03 | Outpatient (CLI) | payer MEDICARE, SELFPAY ==
--- NOTE | 2025-01-11 13:00 | CA_ITS ---
APPROVED REPORT EXAM: Limited 2D Echocardiogram Roof Bolter: Ondina Pina CRT Ht: 5 ft 1 in Wt: 126lbs BSA: 1.55 BP: 127/59 mmHg Indications: ef check M-Mode Dimensions RVDd 2.76 cm (0.9-2.6) LVDd 5.55 cm (3.5-5.7) LVDs 4.22 cm (3.5-5.7) IVSd 1.11 cm (0.6-1.1) PWd 0.79 cm (0.6-1.1) EF (Teich) 47.20% FS 24.00% EDV (Teich) 150.50 mL ESV (Teich) 79.50 mL Other Information Study Quality: Fair Conclusion This is a limited TTE to evaluate for LV systolic function. Limited windows are obtained. The left ventricle is normal in size. There is increased LV wall thickness. There is moderate reduction in global LV systolic function. LVEF is 35-40%. Compared to prior TTE from 10/2024, the LV systolic function remains reduced, but has improved. Electronically signed by : Radha Linares MD 01/11/2025 13:55:33
--- OUTSIDE RECORDS SUMMARY | 2025-01-11 13:06 | XMS_ITS | Clinical Summary ---
Author Organization [facility] Address [address] [place], [place] [phone] Care Team Providers Care Surgical Coordinator Name Role Phone Shaw Duque MD Primary Care Provider [phone] Social History Tobacco Use Types Packs/Day Years [...] UKY-Bone Density Scan 1938 UKY-Depression Screening 1938 UKY-/Child/Adol SDOH Screenings 1938 UKY- SDOH Screenings 01/17/1956 UKY-Adult SDOH Screenings 01/17/1956 UKY-DTaP,Tdap,and Td Vaccine s (1 - Tdap) 1957 UKY-Pneumococcal Vaccine: 50 + Years (1 of 1 - PCV) 01/17/1988 UKY-Zoster Vaccines (1 of 2) 01/17/1988 UKY-RSV Vaccine: 60+ Years o r (1 - 1-dose 75+ series) 2013 [id number]-84 Vaccine (1 - 20 24-25 season) 2024 [...] age to complete this topic Care Teams Surgical Coordinator Relationship Specialty Start Date End Date Shaw Duque MD [address] [place] [address] PCP - General 10/05/20
== END 2025-01-11 23:59 | disposition home or self-care (01) ==
LOC: RT 13:04
PROVIDERS: PCP Internal Medicine; Visit Provider Internal Medicine
DX: I11.0 Hypertensive heart disease with heart failure (principal); I50.21 Acute systolic (congestive) heart failure; I25.10 Atherosclerotic heart disease of native coronary artery without angina pectoris; I42.9 Cardiomyopathy, unspecified; R93.1 Abnormal findings on diagnostic imaging of heart and coronary circulation
CPT/HCPCS: 93308

== ENCOUNTER 2025-02-01 10:59 | Outpatient (CLI) | payer MEDICARE, SELFPAY ==
--- OUTSIDE RECORDS SUMMARY | 2025-02-01 11:02 | XMS_ITS | Clinical Summary ---
Author Organization [facility] Address [address] [place], [place] [id number] Care Team Providers Care Director Of Retail Analytics Name Role Phone Shaw Duque MD Primary Care Provider [phone] Social History Tobacco Use Types Packs/Day Years [...] r (1 - 1-dose 75+ series) 2013 [id number]-70 Vaccine (1 - 20 24-25 season) 2025 UKY-Influenza Vaccine (#1) 2025 HPV Vaccines Aged [...] age to complete this topic Care Teams Director Of Retail Analytics Relationship Specialty Start Date End Date Shaw Duque MD [address] [place] [address] PCP - General 10/05/20
[2025-02-01 11:39] LABS: Hematocrit 34.1 % (37.0-47.0); Hemoglobin 11.0 g/dL (12.2-16.2); Immature Granulocytes % 0.3 %; Mean Corpuscular HGB Conc 32.3 g/dL (31.8-35.4); Mean Corpuscular Hemoglobin 28.7 pg (27.0-31.2); Mean Corpuscular Volume 89.0 fl (81-99); Nucleated Red Blood Cells % 0 %; Platelet Count 263 K/mm3 (142-424); Red Blood Count 3.83 M/mm3 (4.20-5.40); Red Cell Distribution Width-SD 55.9 fL; White Blood Count 6.7 K/mm3 (4.8-10.8)
[2025-02-01 12:06] LABS: Alanine Aminotransferase 14 U/L (12-78); Albumin Level 4.3 g/dl (3.5-5.0); Alkaline Phosphatase 92 U/L (38-126); Anion Gap 11.9 mEq/L (5-15); Aspartate Amino Transferase 26 U/L (14-36); Bilirubin,Direct 0.2 mg/dl (0.0-0.4); Bilirubin,Indirect 0.7 mg/dL (0.0-0.9); Bilirubin,Total 0.9 mg/dl (0.2-1.3); Bilirubin,Unconjugated 0.7 mg/dL (0.0-1.1); Blood Urea Nitrogen 14 mg/dl (7-17); Calcium 9.5 mg/dl (8.4-10.2); Carbon Dioxide 28 mmol/L (22.0-30.0); Chloride 100 mmol/L (98-107); Cholesterol 136 mg/dl (140-200); Creatinine,Serum 0.80 mg/dl (0.52-1.04); Estimated Glomerular Filt Rate 68 ml/min (>60); GFR (African American) 82 ML/MIN (>60); Glucose 86 mg/dl (74-100); HDL Cholesterol 54 mg/dl (40-60); Magnesium 1.7 mg/dl (1.6-2.3); Potassium 3.9 mmoL/L (3.5-5.1); Sodium 136 mmol/L (136-145); Total Protein,Serum 6.9 g/dl (6.3-8.2); Triglycerides 62 mg/dl (30-150)
[2025-02-01 12:22] LABS: Free T4 (Free Thyroxine) 1.93 ng/dl (0.78-2.19)
[2025-02-01 12:37] LABS: Thyroid Stimulating Hormone 0.21 uIU/mL (0.465-4.68)
== END 2025-02-01 23:59 | disposition home or self-care (01) ==
LOC: LAB 11:00
PROVIDERS: PCP Internal Medicine; Visit Provider Internal Medicine
DX: I25.10 Atherosclerotic heart disease of native coronary artery without angina pectoris (principal); I10 Essential (primary) hypertension; E78.5 Hyperlipidemia, unspecified; E03.9 Hypothyroidism, unspecified
CPT/HCPCS: 80048; 80061; 80076; 83735; 84439; 84443; 85025

== ENCOUNTER 2025-05-12 10:17 | Outpatient (CLI) | payer MEDICARE, SELFPAY ==
--- NOTE | 2025-05-12 10:30 | CA_ITS ---
APPROVED REPORT EXAM: Comprehensive 2D, Doppler, and color-flow Echocardiogram Tobacco Stemmer Machine: LUANN López, RVS Ht: 5 ft 1 in Wt: 127lbs BSA: 1.56 BP: 144/71 mmHg Indications: , CM, HFrEF- EF=35-40% 2D Dimensions Left Atrium 4.28 cm F: 2.7 - 3.8 LA Volume 105.20 mL LA Volume Index [id number] mL/m2 (M/F) 16-34 M-Mode Dimensions RVDd 3.11 cm (0.9-2.6) LA Diam 4.46 cm (1.9-4.0) LVDd 5.25 cm (3.5-5.7) LVDs 4.04 cm (3.5-5.7) IVSd 1.00 cm (0.6-1.1) PWd 1.04 cm (0.6-1.1) EF (Teich) 42.90% EPSs 0.57 cm FS 21.20% EDV (Teich) 125.50 mL ESV (Teich) 71.70 mL LV Diastology E Decel Time 160 (160-240 msec) E/A Ratio 2.24 MED A' 9.30 cm/s LAT A' 8.30 cm/s Aortic Valve MARYSE Index 0.96 cm2/m2 AoV Peak Dillon. 274.0 (50-130 cm/s) AI PHT 375.00 ms AO Peak GR. 30.10 mmHg AO Mean GR. 17.60 (<5 mmHg) AO VTI 53.5 (18-25 cm) MARYSE (VTI) 1.54 (2.5-4.5 cm2) Mitral Valve MV A Velocity 63.0 (40-130 cm/s) E/A Ratio 2.24 Tricuspid Valve TR P. Velocity 337.00 cm/s RAP Estimate 10.00 mmHg RVSP 55.50 mmHg Left Ventricle The left ventricle is normal size. Left ventricular systolic function is mildly to moderately reduced. There is increased left ventricular wall thickness. There is normal LV segmental wall motion. Diastolic function is indeterminate. LVEF is 40% Right Ventricle The right ventricle is mildly dilated. The right ventricular systolic function is normal. Atria Left atrium is moderately dilated. Right atrium is moderately dilated. There is no color Doppler evidence of interatrial shunt. Aortic Valve The aortic valve is moderately thickened. Low-flow, low-gradient moderate to severe aortic stenosis is present. MARYSE by continuity equation is 1.0 cm2. Peak velocity 2.8 m/s. Mean AV gradient 17 mmHg. Max AV gradient is 32 mmHg. SVi=35 ml/m2. DI=0.30. Mild aortic regurgitation is present. Mitral Valve The mitral valve is normal in structure. No evidence of mitral valve stenosis. Mild mitral regurgitation is present. Tricuspid Valve The tricuspid valve leaflets are thin and pliable. Mild tricuspid regurgitation. RVSP is 40-45 mmHg. Pulmonic Valve The pulmonary valve is grossly normal in structure. Trace pulmonic valve regurgitation is present. Great Vessels The aortic root is normal in size. IVC is normal in size and collapses >50% with inspiration. Pericardium There is no pericardial effusion. Other Information Study Quality: Technically Difficult Conclusion Mild to moderate reduction in LV systolic function (LVEF 40%). Mild RV dilation. Biatrial dilation. Low-flow, low-gradient moderate to severe (MARYSE by continuity equation is 1.0 cm2. Peak velocity 2.8 m/s. Mean AV gradient 17 mmHg. Max AV gradient is 32 mmHg. SVi=35 ml/m2. DI=0.30). Mild AI, mild MR, mild TR. Elevated RVSP 40-45 mmHg. Compared to prior study from 01/11/2025, the LV systolic function is slightly improved. The severity is unchanged. Electronically signed by : Radha Linares MD 05/23/2025 13:10:00
== END 2025-05-12 23:59 | disposition home or self-care (01) ==
LOC: RT 10:18
PROVIDERS: PCP Internal Medicine; Visit Provider Internal Medicine
DX: I08.3 Combined rheumatic disorders of mitral, aortic and tricuspid valves (principal); I50.21 Acute systolic (congestive) heart failure; I42.9 Cardiomyopathy, unspecified
CPT/HCPCS: 93306